=== PATIENT | female | born 1975 | race African-American/Black ===

== ENCOUNTER 2016-11-14 13:10 | Emergency (ER) | payer OTHER ==
[~2016-11-14] VITALS: Ht 165.1 cm; Wt 68.0 kg
[~2016-11-14 13:10] MED LIST: ACETAMINOPHEN-1 EAC1 ORAL; CYCLOBENZAPRINE10 MG ORAL; KEFLEX500 MG ORAL; METHIMAZOLE10 MG PO; NAPROXEN500 M2 ORAL; PHENERGAN25 M1 ORAL; PROPRANOLOL HCL20 MG PO
[2016-11-14 13:24] VITALS: BP 150/74
[2016-11-14] MEDS ORDERED: Bacitracin Oint UD TOPIC ONE (13:45)
[2016-11-14] MEDS ORDERED: Lidocaine 1% 10mg/ml/Epi 0.005mg/ml 30ml vial INJ ONE (13:45)
[2016-11-14] MEDS ORDERED: CEPHALEXIN500 MG ORAL (14:26)
[2016-11-14] MEDS ORDERED: BACTRIM DS TAB1 EAC1 ORAL (14:26)
[2016-11-14] MEDS ORDERED: IBUPROFEN600 MG ORAL (14:26)
--- NOTE | 2016-11-14 14:37 | Emergency Room Report ---
History of Present Illness General Chief Complaint: Skin Rash/Abscess Present Illness HPI The patient is a 41-year-old female presenting with possible abscess of the right buttock. The patient noticed pain and swelling to the area 3 days prior. It is described as a 9/10 dull ache it is worse with sitting and touch. Pain does not radiate. The patient noticed white drainage from the area yesterday. Pt denies prior infection to this area. The pt denies other symptoms including N , V, F, chills, diarrhea, constipation, dysuria, hematuria Allergies: Coded Allergies: No Known Allergies (Verified Allergy, Mild, 04/27/10) Patient History Past Medical History: see triage record Pertinent Family History: none Reviewed Nursing Documentation: PMH: Agreed, PSxH: Agreed Nursing Documentation-PMH Hx Asthma: Yes - GRAVES DISEASE Review of Systems All Other Systems: negative except mentioned in HPI Physical Exam Vital Signs Date Time Temp Pulse Resp B/P Pulse Ox O2 Delivery O2 Flow Rate FiO2 11/14/16 13:24 98.1 20 150/74 100 Room Air 11/14/16 13:24 106 Sp02 EP Interpretation: reviewed, normal General Appearance: no apparent distress, alert, GCS 15, non-toxic Head: normocephalic, atraumatic Eyes: bilateral eye PERRL, bilateral eye normal inspection ENT: hearing grossly normal, normal pharynx, no angioedema, normal voice Musculoskeletal: back normal, gait/station normal, normal range of motion, non- tender Neurologic: alert, oriented x3, responsive, motor strength/tone normal, sensory intact, normal gait, speech normal Psychiatric: judgement/insight normal, memory normal, mood/affect normal, no suicidal/homicidal ideation Skin: well hydrated, other - There is a 3cm fluctuant and tender abscess with central opening of the R medial buttock Lymphatic: no adenopathy Procedures Incision and Drainage Incision and Drainage : Consent: Verbal Site: R buttock Blade Size: 11 I & D Procedure: betadine prep, sterile drapes applied, sterile dressing applied Wound Location: lower extremity Wound's Depth, Shape: superficial Wound Length (cm): 3 Wound Explored: contaminated Irrigated w/ Saline (ccs): 100 Anesthesia: Lidocaine w/ Epi Volume Anesthetic (ccs): 4 Splint Applied?: No Sling Applied?: No Patient Tolerated: Well Complications: None Medical Decision Making PA Attestation Dr. Aguilar is my supervising physician. Patient management was discussed with my supervising physician Diagnostic Impression: Primary Impression: Abscess ER Course The patient is a 41-year-old female presenting with possible abscess of the right buttock Differential diagnoses considered but not limited to: abscess, cellulitis, insect bite PE: vitals WNL. NAD There is a 3cm fluctuant and tender abscess with central opening of the R medial buttock. No drainage or bleeding. Betadine prep was used to clean the skin and surrounding area. One percent lidocaine without epinephrine was used to anesthetize the are of planned incision. A #11 blade was used to make an incision in the central area of fluctuance approximately 1/3 the size of the diameter of the abscess. Once the incision was made, purulent material was expressed with blood. Blunt dissection was then used to release loculations and expressed more purulent material. Once only blood appeared to be expressed from the incision, normal saline was used to irrigate the inside of the abscess. The wound was then cleaned and sterile dressing applied. Pt is ID'ed home with a prescription for motrin, bactrim, and keflex. Pt will keep the area clean and dry. ER precautions given. Last Vital Signs Date Time Temp Pulse Resp B/P Pulse Ox O2 Delivery O2 Flow Rate FiO2 11/14/16 13:24 98.1 106 20 150/74 100 Room Air Status: improved Disposition: HOME, SELF-CARE Condition: Improved Scripts Trimethoprim/Sulfamethoxazole 160/800* (BACTRIM DS TABLET*) 1 Each Tablet 1 TAB ORAL TWICE A DAY, #14 TAB Prov: TERZIAN,AUGUSTINA P.A. 11/14/16 Cephalexin* (KEFLEX*) 500 Mg Capsule 500 MG ORAL EVERY 6 HOURS, #28 CAP Prov: TERZIAN,AUGUSTINA P.A. 11/14/16 Ibuprofen* (MOTRIN*) 600 Mg Tablet 600 MG ORAL Q8H Y for For Pain, #30 TAB 0 Refills Prov: TERZIAN,AUGUSTINA P.A. 11/14/16 Patient Instructions: Abscess Additional Instructions: I discussed my findings with the patient. All questions and concerns have been answered. Treatment and medication compliance have been addressed. I advised the patient that they need to follow up with PMD in 3-5 days. Return to ED if symptoms worsen, new symptoms arise, or if needed for any reason. Patient verbalized understanding of discharge instructions. AUGUSTINA MILAN Nov 14, 2016 14:37
[2016-11-14 14:47] VITALS: BP 171/84
== END 2016-11-14 14:50 | disposition home or self-care (01) ==
LOC: EMR 13:44
DX: L02.31 Cutaneous abscess of buttock (principal); E05.00 Thyrotoxicosis with diffuse goiter without thyrotoxic crisis or storm
CPT/HCPCS: 10060

== ENCOUNTER 2017-10-19 00:11 | Emergency (ER) | payer MEDICAID, OTHER ==
[~2017-10-19] VITALS: Ht 162.6 cm; Wt 66.7 kg
[~2017-10-19 00:11] MED LIST changes: +BACTRIM DS TAB1 EAC1 ORAL; +CEPHALEXIN500 MG ORAL; +IBUPROFEN600 MG ORAL
[2017-10-19 02:00] VITALS: BP 144/80
[2017-10-19] MEDS ORDERED: IBUPROFEN600 MG ORAL (02:14)
[2017-10-19 02:15] VITALS: BP 144/80
[2017-10-19] MEDS ORDERED: Ketorolac 30mg Inj IM ONE (02:15)
[2017-10-19] MEDS ORDERED: Bicillin LA 2,400,000 units IM ONE (02:15)
--- NOTE | 2017-10-23 07:25 | Emergency Room Report ---
History of Present Illness General Chief Complaint: Toothache Source: Patient, Medical Record Present Illness HPI Patient is a 42-year-old female presented after increased toothache. Patient gradual onset of symptoms. The patient for having increased pain to the tooth is also discoloration. She reports having a dentist appointment in a few days. Allergies: Coded Allergies: No Known Allergies (Verified Allergy, Mild, 04/27/10) Patient History Past Medical History: see triage record Last Menstrual Period: "early september" Now: No Reviewed Nursing Documentation: PMH: Agreed, PSxH: Agreed Nursing Documentation-PMH Hx Asthma: Yes - GRAVES DISEASE Review of Systems All Other Systems: negative except mentioned in HPI Physical Exam Vital Signs Date Time Temp Pulse Resp B/P (MAP) Pulse Ox O2 Delivery O2 Flow Rate FiO2 10/19/17 00:48 97.3 90 18 158/84 99 Room Air 97.3 General Appearance: well appearing, no apparent distress, alert, GCS 15 Head: normocephalic, atraumatic ENT: hearing grossly normal, normal voice, other - tooth discoloration without evident swelling Neck: full range of motion, supple Respiratory: no respiratory distress, no accessory muscle use, speaking full sentences Cardiovascular #1: normal peripheral pulses Gastrointestinal: normal inspection Musculoskeletal: normal inspection, back normal, digits/nails normal, no calf tenderness Neurologic: normal inspection, alert, oriented x3, responsive, marketing administrator III-XII nml as tested, normal gait Psychiatric: mood/affect normal Skin: no rash Medical Decision Making Diagnostic Impression: Primary Impression: Dental infection ER Course Patient presented for dental pain. Differential diagnosis included but was not limited to trigeminal neuralgia, dental abscess, dry socket, osteomyelitis, nerve injury. The patient was noted to have a benign exam. I ordered antibiotic medications for the patient however she eloped prior to receiving the medications. Last Vital Signs Date Time Temp Pulse Resp B/P (MAP) Pulse Ox O2 Delivery O2 Flow Rate FiO2 10/19/17 02:15 97.3 80 18 144/80 99 Room Air 207.1 Status: unchanged Disposition: ELOPED Condition: Stable Scripts Ibuprofen* (MOTRIN*) 600 Mg Tablet 600 MG ORAL Q8H Y for For Pain, #30 TAB 0 Refills Prov: Orlin Garza 10/19/17 Patient Instructions: Dental Pain Orlin Garza Oct 23, 2017 07:24
== END 2017-10-19 02:30 | disposition left against medical advice (07) ==
LOC: EMR 01:40
DX: K04.7 Periapical abscess without sinus (principal); E05.00 Thyrotoxicosis with diffuse goiter without thyrotoxic crisis or storm
CPT/HCPCS: 96372; 99284

== ENCOUNTER 2017-12-01 12:11 | Inpatient (IN) | payer MEDICAID, OTHER ==
[2017-12-01] VITALS (10 sets, daily range): BP systolic 120–152; BP diastolic 76–102
[~2017-12-01] VITALS: Ht 162.6 cm; Wt 64.0 kg
[2017-12-01] MEDS ORDERED: METHIMAZOLE10 MG PO (12:37)
[2017-12-01] MEDS ORDERED: METOPROLOL SUC100 MG ORAL (12:37)
[2017-12-01] MEDS ORDERED: Labetalol 5mg/ml 20ml vial IV ONE ×2 (12:45→13:15)
[2017-12-01 12:57] LABS: APPEARANCE,URINE CLEAR; BILIRUBIN, URINE NEGATIVE (NEGATIVE); COLOR,URINE PALE YELLOW; GLUCOSE, URINE (UA) NEGATIVE (NEGATIVE); KETONES,URINE NEGATIVE (NEGATIVE); LEUKOCYTE ESTERASE ,URINE NEGATIVE (NEGATIVE); NITRITE,URINE NEGATIVE (NEGATIVE); PH,URINE 6 (4.5-8.0); PROTEIN,URINE NEGATIVE (NEGATIVE); UROBILINOGEN,URINE NORMAL MG/DL (0.0-1.0)
[2017-12-01 12:57] LABS: BASOPHILS % (AUTO) 1.1 % (0.0-2.0); EOSINOPHILS % (AUTO) 1.8 % (0.0-3.0); HEMATOCRIT 36.8 % (37.0-47.0); HEMOGLOBIN 10.7 G/DL (12.0-16.0); LYMPHOCYTES % (AUTO) 37.1 % (20.0-45.0); MEAN CORPUSCULAR VOLUME 62 FL (80-99); NEUTROPHILS % (AUTO) 45.9 % (45.0-75.0); PLATELET COUNT 355 K/UL (150-450); RED BLOOD COUNT 5.93 M/UL (4.20-5.40); RED CELL DISTRIBUTION WIDTH 16.4 % (11.6-14.8); WHITE BLOOD COUNT 5.4 K/UL (4.8-10.8)
--- NOTE | 2017-12-01 13:00 | Emergency Room Report ---
History of Present Illness General Chief Complaint: Chest Pain Source: Patient Present Illness HPI Patient presents with complaints of palpitation and chest pain Patient reports previous history of Graves' disease is on beta selina 2 days ago started having palpitation sensation Has progressed to more heaviness and pain as well Denies any pleurisy denies any vomiting or diarrhea Denies any back or flank pain denies any dysuria frequency Patient denies any recent travel Allergies: Coded Allergies: No Known Allergies (Verified Allergy, Mild, 04/27/10) Patient History Past Medical History: see triage record Pertinent Family History: none Last Menstrual Period: 10/05/17 Now: No : 3 Para: 1 Reviewed Nursing Documentation: PMH: Agreed; PSxH: Agreed Nursing Documentation-PMH Past Medical History: No History, Except For Hx Hypertension: Yes Hx Asthma: Yes - GRAVES DISEASE Review of Systems All Other Systems: negative except mentioned in HPI Physical Exam Vital Signs Date Time Temp Pulse Resp B/P (MAP) Pulse Ox O2 Delivery O2 Flow Rate FiO2 12/01/17 12:27 97.6 152 18 152/89 92 Room Air 97.5 Sp02 EP Interpretation: reviewed, abnormal - 92% is a low percentage interpreted, on 2 L the patient is saturating at 97% which is normal General Appearance: moderate distress - Patient appears agitated and tearful Head: normocephalic, atraumatic Eyes: bilateral eye PERRL, bilateral eye EOMI ENT: hearing grossly normal, normal pharynx, TMs + canals normal, uvula midline Neck: full range of motion, supple, no meningismus, no bony tend Respiratory: lungs clear, normal breath sounds, no rhonchi, no respiratory distress, no retraction, no accessory muscle use Cardiovascular #1: no edema, no gallop, no JVD, no murmur, tachycardia Gastrointestinal: normal bowel sounds, non tender, soft, no mass, no organomegaly, non-distended, no guarding, no hernia, no pulsatile mass, no rebound Genitourinary: no CVA tenderness Musculoskeletal: normal inspection Neurologic: oriented x3, responsive, house mother III-XII nml as tested, motor strength/ tone normal, sensory intact Psychiatric: mood/affect normal Skin: normal color, no rash, warm/dry, palpation normal Lymphatic: normal inspection, no adenopathy Procedures Critical Care Time Critical Care Time 50 minutes for multiple re-evaluations critical presentation with concern for cardiac end organ failure not including any positional time Medical Decision Making Diagnostic Impression: Primary Impression: Atrial fibrillation with RVR Additional Impression: Graves disease ER Course Patient is a fairly complex patient with multiple differential to consideration including but not limited to cardiac cardiopulmonary and vascular emergencies Other autoimmune a slight pathology also entertained Initiated patient's heart rate was fairly tachycardic and difficult to ascertain irregularity however after labetalol dosing and the decreased heart rate it does appear the patient has atrial fibrillation Patient has not had that diagnosis before appears to have a new onset atrial fibrillation with rapid ventricular rate Patient is provided Cardizem at this time further hydration Lovenox was also provided My suspicion for pulmonary embolisms low at this time nevertheless the patient will require admission for further care Labs Test 12/02/17 08:05 White Blood Count 5.6 K/UL (4.8-10.8) Red Blood Count 5.09 M/UL (4.20-5.40) Hemoglobin 9.7 G/DL (12.0-16.0) Hematocrit 31.5 % (37.0-47.0) Mean Corpuscular Volume 62 FL (80-99) Mean Corpuscular Hemoglobin 19.0 PG (27.0-31.0) Mean Corpuscular Hemoglobin Concent 30.7 G/DL (32.0-36.0) Red Cell Distribution Width 16.1 % (11.6-14.8) Platelet Count 314 K/UL (150-450) Mean Platelet Volume 9.5 FL (6.5-10.1) Neutrophils (%) (Auto) % (45.0-75.0) Lymphocytes (%) (Auto) % (20.0-45.0) Monocytes (%) (Auto) % (1.0-10.0) Eosinophils (%) (Auto) % (0.0-3.0) Basophils (%) (Auto) % (0.0-2.0) Differential Total Cells Counted 100 Neutrophils % (Manual) 30 % (45-75) Lymphocytes % (Manual) 56 % (20-45) Monocytes % (Manual) 12 % (1-10) Eosinophils % (Manual) 2 % (0-3) Basophils % (Manual) 0 % (0-2) Band Neutrophils 0 % (0-8) Platelet Estimate Adequate Platelet Morphology Normal Hypochromasia 1+ Anisocytosis 1+ Microcytosis 2+ Ovalocytes Occasional Activated Partial Thromboplast Time 66 SEC (23-33) Sodium Level 138 MMOL/L (136-145) Potassium Level 3.7 MMOL/L (3.5-5.1) Chloride Level 107 MMOL/L (98-107) Carbon Dioxide Level 26 MMOL/L (21-32) Anion Gap 5 mmol/L (5-15) Blood Urea Nitrogen 6 mg/dL (7-18) Creatinine 0.7 MG/DL (0.55-1.30) Estimat Glomerular Filtration Rate > 60 mL/min (>60) Glucose Level 149 MG/DL (74-106) Calcium Level 8.6 MG/DL (8.5-10.1) Total Bilirubin 0.6 MG/DL (0.2-1.0) Aspartate Amino Transf (AST/SGOT) 23 U/L (15-37) Alanine Aminotransferase (ALT/SGPT) 30 U/L (12-78) Alkaline Phosphatase 115 U/L (46-116) Troponin I 0.000 ng/mL (0.000-0.056) Pro-B-Type Natriuretic Peptide 413 pg/mL (0-125) Total Protein 6.8 G/DL (6.4-8.2) Albumin 3.2 G/DL (3.4-5.0) Globulin 3.6 g/dL Albumin/Globulin Ratio 0.9 (1.0-2.7) EKG Diagnostic Results Rate: tachycardiac Rhythm: other - A. fib ST Segments: other - Nonspecific ST and T-wave changes Rhythm Strip Diag. Results EP Interpretation: yes Rate: 122 Rhythm: no PVC's, no ectopy, other - Irregularly irregular Chest X-Ray Diagnostic Results Chest X-Ray Diagnostic Results : Chest X-Ray Ordered: Yes # of Views/Limited/Complete: 1 View Indication: Chest Pain EP Interpretation: Yes Interpretation: no consolidation, no effusion, no pneumothorax Impression: No acute disease Last Vital Signs Date Time Temp Pulse Resp B/P (MAP) Pulse Ox O2 Delivery O2 Flow Rate FiO2 12/01/17 12:50 143 152/89 12/01/17 12:44 19 99 Room Air 12/01/17 12:27 97.6 97.5 Status: improved Disposition: ADMITTED INPATIENT Condition: Critical Scripts Propranolol Hcl* (INDERAL*) 20 Mg Tablet 20 MG ORAL THREE TIMES A DAY, #90 TAB 0 Refills Prov: Chano Cabral MD 12/02/17 Methimazole (Methimazole) 5 Mg Tablet 10 MG ORAL THREE TIMES A DAY for 30 Days, TAB Prov: Chano Cabral MD 12/02/17 Referrals: [facility],REFERRING (PCP) Gordon Aguilar DO Dec 01, 2017 13:00
[2017-12-01 13:10] LABS: ANION GAP 12 mmol/L (5-15); BLOOD UREA NITROGEN 9 mg/dL (7-18); CARBON DIOXIDE 23 MMOL/L (21-32); CHLORIDE 106 MMOL/L (98-107); CREATININE 0.6 MG/DL (0.55-1.30); POTASSIUM 3.8 MMOL/L (3.5-5.1); SODIUM 141 MMOL/L (136-145)
[2017-12-01 13:34] LABS: ALANINE AMINOTRANSFERASE 28 U/L (12-78); ALBUMIN 3.6 G/DL (3.4-5.0); ALBUMIN/GLOBULIN RATIO 0.9 (1.0-2.7); ALKALINE PHOSPHATASE 139 U/L (46-116); ASPARTATE AMINO TRANSFERASE 21 U/L (15-37); BILIRUBIN,TOTAL 0.6 MG/DL (0.2-1.0); CKMB < 0.5 NG/ML (0.0-3.6); CREATINE KINASE 32 U/L (26-308)
[2017-12-01] MEDS ORDERED: dilTIAZem HCl 25mg/5ml Inj IVP ONE (13:45)
[2017-12-01] MEDS ORDERED: Enoxaparin 60mg Inj SUBQ ONE (13:45)
[2017-12-01] MEDS ORDERED: Propranolol 1mg/ml Inj IVP ONE (15:45)
--- NOTE | 2017-12-01 17:02 | Diagnostic Imaging Report ---
Indication: Chest pain Technique: One view of the chest Comparison: 07/27/2012 Findings: Lungs and pleural spaces are clear. Heart size is normal. No significant change Impression: No acute process
[2017-12-01] MEDS ORDERED: Metoprolol 5mg/5ml Inj IVPB SCH (18:45)
[2017-12-01] MEDS ORDERED: Heparin 25,000u/D5W 500ml 500 ML IV SCH (19:00)
[2017-12-01] MEDS ORDERED: Heparin 5000 units/ml inj IV SCH (19:30)
[2017-12-01] MEDS ORDERED: Metoprolol Tartrate 10 MG in D5W 55 ML IVPB SCH (21:00)
--- NOTE | 2017-12-01 23:30 | Consultation ---
DATE OF CONSULTATION: 12/01/2017 CARDIOLOGY CONSULTATION CONSULTING PHYSICIAN: Trevon Ambrose M.D. REQUESTING PHYSICIAN: Chano Cabral M.D. REASON FOR CONSULTATION: Rapid atrial fibrillation. HISTORY OF PRESENT ILLNESS: This is a 42-year-old female. She has a history of Graves disease. She has been on beta-selina therapy as well as methimazole two days ago. She noted palpitations they have progressed. Her heart rate has been rapid and she has had heaviness and tightness in her chest. She has not had any other constitutional symptoms and has been compliant with medications. PAST MEDICAL HISTORY: Graves disease, hypertension, paroxysmal atrial fibrillation. MEDICATIONS: Prior to admission, reviewed and reconciled. ALLERGIES: None. FAMILY HISTORY: Noncontributory. SOCIAL HISTORY: Denies smoking, alcohol, or substance abuse. REVIEW OF SYSTEMS: A 10-point review of systems performed. All systems negative other than noted above. PHYSICAL EXAMINATION: VITAL SIGNS: Blood pressure 152/89, pulse 152, respiratory rate 18, and afebrile. Monitor atrial fibrillation with rapid ventricular response. Oxygen saturation on room air 92%. HEENT: Normocephalic and atraumatic. There is slight exophthalmos. Oropharynx clear. NECK: Supple. No jugular venous distention. No tenderness over the chest wall. LUNGS: Clear. CARDIAC: Irregularly irregular. Rapid rate. Normal S1 and S2 with no murmur. ABDOMEN: Soft and nontender EXTREMITIES: With no edema. Capillary refill is adequate. NECK: There is no gross thyromegaly or bruits. LABORATORY AND DIAGNOSTIC DATA: His EKG revealed atrial fibrillation with rapid ventricular response, nonspecific ST-T wave changes. Chest x-ray with no acute process. LABORATORY DATA: White count 5.4, hemoglobin 10.7, MCV 62. Sodium 141, potassium 3.8, BUN 9, creatinine 0.6. Troponin negative. TSH less than 0.007. T4 free is 3.1. IMPRESSION: Anginal syndrome precipitated by rapid heart rate. PLAN: 1. Full anticoagulation. 2. Cardiac monitoring. 3. IV beta blockade and once rate controlled resume oral therapy and titrate. 4. Continue methimazole. 5. Await endocrine assessment. 6. Maintain therapeutic potassium levels. 7. Check natriuretic peptide assay. 8. Serial troponin levels. Trevon Ambrose M.D. DR: Luis JOB#: [id number] CC:
[2017-12-02] VITALS: BP 143/85
[2017-12-02] MEDS: Metoprolol Tartrate 10 MG in D5W 55 ML IVPB SCH ×2 (00:33→04:57)
[2017-12-02] MEDS ORDERED: Metoprolol 5mg/5ml Inj ONE (04:40)
[2017-12-02 07:58] VITALS: BP 104/63
[2017-12-02 08:18] LABS: HEMATOCRIT 31.5 % (37.0-47.0); HEMOGLOBIN 9.7 G/DL (12.0-16.0); MEAN CORPUSCULAR VOLUME 62 FL (80-99); PLATELET COUNT 314 K/UL (150-450); RED BLOOD COUNT 5.09 M/UL (4.20-5.40); RED CELL DISTRIBUTION WIDTH 16.1 % (11.6-14.8); WHITE BLOOD COUNT 5.6 K/UL (4.8-10.8)
--- NOTE | 2017-12-02 08:24 | History & Physical ---
History and Physical History & Physicial HISTORY OF PRESENT ILLNESS: This is a 42-year-old female. She has a history of Graves disease. She has been on beta-selina therapy as well as methimazole however she reports non-compliance She noted palpitations they have progressed. Her heart rate has been rapid and she has had heaviness and tightness in her chest. She has not had any other constitutional symptoms and has been compliant with medications. PAST MEDICAL HISTORY: Graves disease, hypertension, paroxysmal atrial fibrillation. MEDICATIONS: Tapazole and metoprolol ALLERGIES: None. FAMILY HISTORY: Noncontributory. SOCIAL HISTORY: Denies smoking, alcohol, or substance abuse. REVIEW OF SYSTEMS: A 10-point review of systems performed. All systems negative other than noted above. PHYSICAL EXAMINATION: VITAL SIGNS: Blood pressure 152/89, pulse 152 earlier; now 87, respiratory rate 18, and afebrile. Monitor atrial fibrillation with rapid ventricular response. Oxygen saturation on room air 92%. HEENT: Normocephalic and atraumatic. There is slight exophthalmos. Oropharynx clear. NECK: Supple. No jugular venous distention. No tenderness over the chest wall. LUNGS: Clear. CARDIAC: Irregularly irregular. Rapid rate. Normal S1 and S2 with no murmur. ABDOMEN: Soft and nontender EXTREMITIES: With no edema. Capillary refill is adequate. NECK: There is no gross thyromegaly or bruits. LABORATORY AND DIAGNOSTIC DATA: His EKG revealed atrial fibrillation with rapid ventricular response, nonspecific ST-T wave changes. Chest x-ray with no acute process. LABORATORY DATA: White count 5.4, hemoglobin 10.7, MCV 62. Sodium 141, potassium 3.8, BUN 9, creatinine 0.6. Troponin negative. TSH less than 0.007. T4 free is 3.1. IMPRESSION: Atrial fibrillation. Graves disease. PLAN: 1. Seen by endocrinology 2. Switch to Inderal 4. Continue methimazole. 5.DC home on PO Inderal and methimazole MD Misha Chisholm Omar Syed MD Dec 02, 2017 08:24
[2017-12-02] MEDS ORDERED: TAPAZOLE5 MG ORAL (08:26)
[2017-12-02] MEDS ORDERED: PROPRANOLOL HCL20 MG ORAL (08:26)
[2017-12-02 08:52] LABS: ALANINE AMINOTRANSFERASE 30 U/L (12-78); ALBUMIN 3.2 G/DL (3.4-5.0); ALBUMIN/GLOBULIN RATIO 0.9 (1.0-2.7); ALKALINE PHOSPHATASE 115 U/L (46-116); ANION GAP 5 mmol/L (5-15); ASPARTATE AMINO TRANSFERASE 23 U/L (15-37); BILIRUBIN,TOTAL 0.6 MG/DL (0.2-1.0); BLOOD UREA NITROGEN 6 mg/dL (7-18); CALCIUM 8.6 MG/DL (8.5-10.1); CARBON DIOXIDE 26 MMOL/L (21-32); CHLORIDE 107 MMOL/L (98-107); CREATININE 0.7 MG/DL (0.55-1.30); POTASSIUM 3.7 MMOL/L (3.5-5.1); SODIUM 138 MMOL/L (136-145)
[2017-12-02] MEDS ORDERED: Metoprolol Tartrate 10 MG in D5W 55 ML IVPB SCH (09:00)
[2017-12-02] MEDS ORDERED: Metoprolol Succinate XL 100mg tab ORAL SCH (09:00)
--- NOTE | 2017-12-03 01:15 | Progress Note ---
DATE: 12/02/2017 SUBJECTIVE: The patient has been given IV and oral metoprolol. Heart rate now is controlled. She remains in atrial fibrillation. She remains on anticoagulation. PHYSICAL EXAMINATION: LUNGS: Good breath sounds. Irregularly irregular rhythm. Normal S1 and S2. ABDOMEN: Soft. EXTREMITIES: No edema. Troponin levels are negative. LABORATORY AND DIAGNOSTIC DATA: Potassium 3.7. Pro natriuretic peptide is 400. Albumin 3.2. IMPRESSION: 1. Graves disease. 2. Thyrotoxicosis. 3. Paroxysmal atrial fibrillation, now with controlled ventricular response. 4. Acute diastolic congestive heart failure precipitated by rapid atrial fibrillation and catecholamine state. 5. Mild protein-calorie malnutrition. PLAN: 1. Outpatient followup. 2. Continue beta-sleina. 3. Methimazole dosing adjusted per supervisor brew house. 4. Cardioembolic prophylaxis with rivaroxaban or warfarin. Trevon Ambrose M.D. DR: Luis JOB#: [id number] CC: MATTHEW
--- NOTE | 2017-12-03 07:15 | Consultation ---
DATE OF CONSULTATION: 12/02/2017 ENDOCRINOLOGY CONSULTATION CONSULTING PHYSICIAN: Ian Garrett M.D. REFERRING PHYSICIAN: Dr Cabral REASON FOR CONSULTATION: Hyperthyroidism. HISTORY OF PRESENT ILLNESS: The patient is a 42-year-old female, with past medical history of hyperthyroidism for the past five years on methimazole as an outpatient. She is on 10 mg a day, which she has not been compliant. The patient presented to the hospital with palpitations and rapid heart rate. I will start her on methimazole 10 mg t.i.d. as well as metoprolol. Endocrinology was consulted in order to assist in the management of hyperthyroidism. PAST MEDICAL HISTORY: 1. Graves disease. 2. Hypertension. 3. Paroxysmal atrial fibrillation. MEDICATIONS: Methimazole and metoprolol. ALLERGIES TO MEDICATION: None. FAMILY HISTORY: Negative for thyroid disease. SOCIAL HISTORY: Denies any smoking, alcohol, or drug use. REVIEW OF SYSTEMS: A 12-point review of systems was performed. Pertinent positives and negatives are as mentioned in the history of present illness. PHYSICAL EXAMINATION: VITAL SIGNS: Blood pressure is 152/89, pulse 152 down to 87, and respiratory rate 18. HEENT: Pupils are equal and reactive to light and accommodation. Sclerae are anicteric. NECK: No thyromegaly. HEART: Tachy, but regular. LUNGS: Clear. ABDOMEN: Positive bowel sounds. EXTREMITIES: Lower extremity positive for fine tremors. LABORATORY DATA: WBC of 5.6, hemoglobin 9.7, hematocrit 31.5, and platelets of 314. Sodium 138, potassium 3.7, chloride 107, bicarbonate 26, BUN 6, creatinine 0.7, and glucose 149. Troponin negative. TSH undetectable. Free T4 is elevated at 3. DIAGNOSES: 1. Thyrotoxicosis. 2. Graves disease. 3. Noncompliance with methimazole. 4. Tachycardia. PLAN: 1. Continue methimazole 10 mg t.i.d. 2. Discontinue metoprolol and start Inderal 20 mg t.i.d. 3. From an director clinical operations standpoint, the patient is stable for discharge. Continue with the current dosage of beta selina and methimazole. Repeat thyroid tests, thyroid function as an outpatient in a month. Thank you, Dr. Cabral, for the courtesy of this consultation. Ian Garrett M.D. DR: ANGIE JOB#: [id number] CC: MATTHEW
--- NOTE | 2017-12-03 08:56 | Discharge Summary ---
Discharge Summary Discharge Summary Discharge Summary DATE OF ADMISSION: 12/01/2017 DATE OF DISCHARGE: 12/02/2017 REASON FOR ADMISSION: [42 years old female with history of hypertension paroxysmal atrial fibrillation agreed disease resented with a complaint of palpitation and chest pain. Palpitation started about 2 days ago. Which progressed to more howeverand chest pain. She denied any nausea vomiting diarrhea. She denied fever or chills. She denied parotic chest pain she denied flank pain or dysuria. Laboratory workup revealed heart rate of 152. EKG showed atrial fibrillation with rapid ventricular response troponin was negative. TSH was very low less than 0.007. Free T4 3 0.1. Patient admitted to telemetry floor with diagnosis of atrial fibrillation with rapid ventricular response grave disease. CONSULTANTS: gas dispenser on neurologist pulmonary ID specialist GI specialist learning support resource room teacher deep well contractor/oncologist surgery psychiatrist Technical Services Manager [email or web address] [facility] COURSE: Patient admitted to telemetry floor. Cardiology and endocrinology consults were requested. Patient was given IV beta selina and full anticoagulation as per gas dispenser. Troponin 2 negative. Heart rate stabilized. Patient spontaneously converted to sinus rhythm. Blood pressure was stable with current regimen. Technical Services Manager seen and evaluated the patient and diagnosed patient with thyrotoxicosis due to noncompliance with the medication/methimazole. He changed metoprolol the patient was before, to Inderal -to be continued at home as well as continue methimazole. Technical Services Manager cleared patient for discharge and stressed importance of compliance with the medication regimen. Patient to repeat thyroid function test in one month. Patient was stable for discharged home. Due to rapid and unexpected improvement in patient's condition , the patient was discharged in one day. FINAL DIAGNOSES: Atrial fibrillation with rapid ventricular response Thyrotoxicosis Grave's disease Noncompliance with medication DISCHARGE MEDICATIONS: See Medication Reconciliation list. DISCHARGE INSTRUCTIONS: Patient was discharged home. Patient to follow-up with her primary care provider. Repeat thyroid function test in one month. Patient was counseled on compliance with medication regimen. I have been assigned to dictate discharge summary for this account. I was not involved in the patient's management. Isatu Jauregui NP ([place]) Dec 03, 2017 08:56
--- NOTE | 2017-12-04 21:26 | Cardiology Report ---
APPROVED REPORT EKG Measurement Heart [id number] Normal sinus rhythm Right atrial enlargement Borderline ECG
--- NOTE | 2017-12-04 21:30 | Cardiology Report ---
APPROVED REPORT EKG Measurement Heart [id number] Atrial flutter with variable AV block Abnormal ECG
--- NOTE | 2017-12-04 21:30 | Cardiology Report ---
APPROVED REPORT EKG Measurement Heart [id number] Atrial fibrillation with rapid ventricular response Abnormal ECG
== END 2017-12-02 09:00 | disposition home or self-care (01) | DRG 201 ==
LOC: EDBEDREQ 12:40 → EMR 12:56 → EDBEDREQ 13:36 → 2E 14:10 → EDBEDREQ 14:58
DX: I48.0 Paroxysmal atrial fibrillation (principal); I10 Essential (primary) hypertension; E05.00 Thyrotoxicosis with diffuse goiter without thyrotoxic crisis or storm; Z91.14 Patient's other noncompliance with medication regimen
CPT/HCPCS: 36415; 71045; 80053; 80307; 81003; 81025; 82550; 82553; 83690; 83880; 84439; 84443; 84484; 85007; 85025; 85730; 93005; 99291; J2405; J8499

== ENCOUNTER 2019-02-16 18:13 | Inpatient (IN) | payer BC, MEDICAID ==
[~2019-02-16] VITALS: Ht 162.6 cm; Wt 64.0 kg
[~2019-02-16 18:13] MED LIST changes: +METOPROLOL SUC100 MG ORAL; +PROPRANOLOL HCL20 MG ORAL; +TAPAZOLE5 MG ORAL
[2019-02-16] MEDS ORDERED: METOPROLOL SUCC50 MG ORAL (18:21)
[2019-02-16] MEDS ORDERED: METHIMAZOLE10 MG PO (18:21)
--- NOTE | 2019-02-16 18:28 | NUR ---
ED Nurse Note: Patient walked into ED c/o chest pain on the mid sternal area and SOB for 1 week. patient reports he has been seen by PCP yesterday. patient reports hx of graves disease and hypertension, and takes methimazole 10mg and metoprolol for due to cp and SOB for 1 week. seen by PCP yesterday. on methimazole 10mg and metoprolol 50mg. [employer] monitor on the patient, placed patient in gown.
[2019-02-16] MEDS ORDERED: Propranolol 1mg/ml Inj IVP ONE ×3 (18:30→19:30)
--- NOTE | 2019-02-16 18:31 | Emergency Room Report ---
History of Present Illness General Chief Complaint: Chest Pain Source: Patient, Medical Record Present Illness HPI Patient is a 43-year-old female who presented after increased chest discomfort for approximately 1 week. Patient reports having prior history of hyperthyroidism and previously had been on methimazole as well as propranolol. Patient had discontinued medication approximately 1 week ago. She reports having increased palpitations since last night. She had some increased blurring of her vision. She denies any vomiting. She had been having some increased chest discomfort which she describes as a rapid heartbeat. She states she took both her methimazole and propranolol this morning.Denies any change in the symptoms since taking the medications. Allergies: Coded Allergies: No Known Allergies (Verified Allergy, Mild, 04/27/10) Patient History Past Medical History: see triage record, other - hyperthyroidism Last Menstrual Period: 10/09 Reviewed Nursing Documentation: PMH: Agreed; PSxH: Agreed Nursing Documentation-PMH Past Medical History: No History, Except For Hx Cardiac Problems: No Hx Hypertension: Yes Hx Asthma: Yes - GRAVES DISEASE Hx Cancer: No Hx Gastrointestinal Problems: No Hx Neurological Problems: No Review of Systems All Other Systems: negative except mentioned in HPI Physical Exam Vital Signs Date Time Temp Pulse Resp B/P (MAP) Pulse Ox O2 Delivery O2 Flow Rate FiO2 02/16/19 18:18 97.7 160 18 124/91 (102) 100 Room Air Sp02 EP Interpretation: reviewed, normal General Appearance: normal inspection, well appearing, no apparent distress, alert, GCS 15 Head: atraumatic ENT: normal ENT inspection, hearing grossly normal, normal voice Neck: normal inspection, full range of motion, supple, no bony tend Respiratory: normal inspection, lungs clear, normal breath sounds, no respiratory distress, no retraction, no wheezing Cardiovascular #1: no edema, tachycardia Gastrointestinal: normal inspection, normal bowel sounds, non tender, soft, no guarding, no hernia Genitourinary: no CVA tenderness Musculoskeletal: normal inspection, back normal, normal range of motion Neurologic: normal inspection, alert, oriented x3, responsive, manganese heater III-XII nml as tested, motor strength/tone normal, speech normal Psychiatric: normal inspection, judgement/insight normal, mood/affect normal Medical Decision Making Diagnostic Impression: Primary Impression: Hyperthyroidism Additional Impressions: Fluid overload Anemia ER Course Patient presented for palpitations and chest discomfort. Differential diagnosis include was not limited to thyroid storm, beta-selina withdrawal, ACS , arrhythmia among others. Because of complexity of patient's case laboratory testing and imaging studies were ordered. Patient was noted to have markedly elevated heart rate and was initially started on IV propranolol. EKG interpreted by me showed an atrial flutter with variable block with a heart rate in the 160s.Patient was noted to have some improvement in her heart rate after IV propranolol. Patient started on IV Lasix. She was noted to be somewhat anemic. MCV was noted to be low consistent with iron deficiency anemia. Dr. Chano Cabral was contacted for inpatient management due to prior admission. Labs Test 02/16/19 18:26 White Blood Count 7.8 K/UL (4.8-10.8) Red Blood Count 4.84 M/UL (4.20-5.40) Hemoglobin 8.1 G/DL (12.0-16.0) Hematocrit 29.1 % (37.0-47.0) Mean Corpuscular Volume 60 FL (80-99) Mean Corpuscular Hemoglobin 16.8 PG (27.0-31.0) Mean Corpuscular Hemoglobin Concent 27.9 G/DL (32.0-36.0) Red Cell Distribution Width 15.1 % (11.6-14.8) Platelet Count 344 K/UL (150-450) Mean Platelet Volume 6.5 FL (6.5-10.1) Neutrophils (%) (Auto) 49.2 % (45.0-75.0) Lymphocytes (%) (Auto) 33.9 % (20.0-45.0) Monocytes (%) (Auto) 14.0 % (1.0-10.0) Eosinophils (%) (Auto) 1.0 % (0.0-3.0) Basophils (%) (Auto) 2.0 % (0.0-2.0) Sodium Level 140 MMOL/L (136-145) Potassium Level 3.9 MMOL/L (3.5-5.1) Chloride Level 106 MMOL/L (98-107) Carbon Dioxide Level 23 MMOL/L (21-32) Anion Gap 11 mmol/L (5-15) Blood Urea Nitrogen 15 mg/dL (7-18) Creatinine 0.8 MG/DL (0.55-1.30) Estimat Glomerular Filtration Rate > 60 mL/min (>60) Glucose Level 124 MG/DL (74-106) Calcium Level 8.5 MG/DL (8.5-10.1) Total Bilirubin 0.9 MG/DL (0.2-1.0) Aspartate Amino Transf (AST/SGOT) 31 U/L (15-37) Alanine Aminotransferase (ALT/SGPT) 34 U/L (12-78) Alkaline Phosphatase 120 U/L (46-116) Total Creatine Kinase 32 U/L (26-308) Creatine Kinase MB < 0.5 NG/ML (0.0-3.6) Creatine Kinase MB Relative Index 1.5 Troponin I 0.014 ng/mL (0.000-0.056) Pro-B-Type Natriuretic Peptide 1251 pg/mL (0-125) Total Protein 6.4 G/DL (6.4-8.2) Albumin 3.5 G/DL (3.4-5.0) Globulin 2.9 g/dL Albumin/Globulin Ratio 1.2 (1.0-2.7) Thyroid Stimulating Hormone (TSH) < 0.010 uiU/mL (0.358-3.740) Free Thyroxine 4.49 NG/DL (0.76-1.46) EKG Diagnostic Results Rate: tachycardiac Rhythm: other - atrial flutter variable block Last Vital Signs Date Time Temp Pulse Resp B/P (MAP) Pulse Ox O2 Delivery O2 Flow Rate FiO2 02/16/19 18:18 97.7 160 18 124/91 (102) 100 Room Air Status: improved Disposition: ADMITTED INPATIENT Condition: Serious Referrals: NON PHYSICIAN (PCP) Orlin Garza MD Feb 16, 2019 18:31
[2019-02-16 18:35] VITALS: BP 130/91
[2019-02-16 18:38] LABS: HEMATOCRIT 29.1 % (37.0-47.0); HEMOGLOBIN 8.1 G/DL (12.0-16.0); LYMPHOCYTES % (AUTO) 33.9 % (20.0-45.0); MEAN CORPUSCULAR VOLUME 60 FL (80-99); NEUTROPHILS % (AUTO) 49.2 % (45.0-75.0); PLATELET COUNT 344 K/UL (150-450); RED BLOOD COUNT 4.84 M/UL (4.20-5.40); RED CELL DISTRIBUTION WIDTH 15.1 % (11.6-14.8); WHITE BLOOD COUNT 7.8 K/UL (4.8-10.8)
[2019-02-16 18:49] LABS: ANION GAP 11 mmol/L (5-15); BLOOD UREA NITROGEN 15 mg/dL (7-18); CALCIUM 8.5 MG/DL (8.5-10.1); CARBON DIOXIDE 23 MMOL/L (21-32); CHLORIDE 106 MMOL/L (98-107); CREATININE 0.8 MG/DL (0.55-1.30); POTASSIUM 3.9 MMOL/L (3.5-5.1); SODIUM 140 MMOL/L (136-145)
[2019-02-16 19:02] LABS: ALANINE AMINOTRANSFERASE 34 U/L (12-78); ALBUMIN 3.5 G/DL (3.4-5.0); ALBUMIN/GLOBULIN RATIO 1.2 (1.0-2.7); ALKALINE PHOSPHATASE 120 U/L (46-116); ASPARTATE AMINO TRANSFERASE 31 U/L (15-37); BILIRUBIN,TOTAL 0.9 MG/DL (0.2-1.0); CKMB < 0.5 NG/ML (0.0-3.6); CREATINE KINASE 32 U/L (26-308)
--- NOTE | 2019-02-16 19:10 | NUR ---
Gogo reis in EDM - 02/16/19 at 1912 by JOSE DANIEL ED Nurse Note: Received report from Jhoana/JAMES. Pt is A/O X4, will continue to monitor.
--- NOTE | 2019-02-16 19:11 | NUR ---
HAND-OFF: Report given to Jeannie RAMIREZ . benjamin is resting in bed
--- NOTE | 2019-02-16 19:12 | NUR ---
ED Nurse Note: Received report from Jhoana/JAMES. Pt is A/O X4, will continue to monitor.
[2019-02-16 19:15] VITALS: BP 119/74
--- NOTE | 2019-02-16 19:47 | Diagnostic Imaging Report ---
EXAM: XR Chest, 1 View CLINICAL HISTORY: SOB TECHNIQUE: Frontal view of the chest. COMPARISON: 12/01/18 FINDINGS: Lungs: Slight increased lung markings in the right lung base with minimal fluid noted in the fissure Pleural space: Unremarkable. No pneumothorax. Heart: Unremarkable. No cardiomegaly. Mediastinum: Unremarkable. Bones/joints: Unremarkable. IMPRESSION: Prominent interstitial markings in the right lung base and minimal fluid noted in the fissure of the right. This is new from prior study
--- NOTE | 2019-02-16 19:48 | NUR ---
ED Nurse Note: The third dose of Inderal with Lasix given as ordered.
[2019-02-16 20:35] VITALS: BP 126/87
--- NOTE | 2019-02-16 20:55 | NUR ---
ED Nurse Note: Called Tele tried to gived report, was told he need for 10 mint to call back, due to RN with PT. .
--- NOTE | 2019-02-16 21:18 | NUR ---
ED Nurse Note: Pt's hoyos and home Meds sent with pt's friend/ Bk, Tele: [phone].
--- NOTE | 2019-02-16 21:20 | NUR ---
TRANSFER TO FLOOR: Patient transferred to [facility]/216-1 as ordered. Report given to Rafi/JAMES. Belongings sent with Pt and rechecked with RN.
[2019-02-16 21:30] VITALS: BP 135/100
--- NOTE | 2019-02-16 21:30 | NUR ---
NURSE NOTES: Received report from Bruno Price RN. regarding patient's transfer to TELE floor from ED. Placed on continuous cardiac monitoring per protocol and for elevated HR with A-flutter/A-fib. EKG taken and recorded in ED. Head to toe assessment done with no skin issues observed. No complaints of acute pain or discomfort noted at this time. Belongings checked and noted at bedside; medications reconciled and taken home by patient's friend. Safety precaution in place; siderails X2 up, call light within reach, bed in lowest position, brakes and alarm on at all times. Needs and wants anticipated and attended. Will continue plan of care and monitor for any changes noted.
--- NOTE | 2019-02-16 22:26 | NUR ---
NURSE NOTES: Jose Alberto Cabral MD. aware of abnormal lab Hgb (8.1) and elevated HR at 160's (A-flutter) on EKG. Will continue to monitor. Addendum: 02/17/19 at 0255 by TEX BARRIOS RN aware of A-fib/A-flutter. NNO at this time
[2019-02-16] MEDS: Metoprolol Succinate XL 50mg tab ORAL SCH (23:49)
[2019-02-16] MEDS: Zolpidem 5mg tab ORAL PRN (23:49)
[2019-02-17] VITALS: BP 122/71
--- NOTE | 2019-02-17 03:00 | NUR ---
NURSE NOTES: Patient in bed asleep with no S/S of distress noted at this time. Will continue to monitor. Elevated HR 150-160's with noted A-fib/A-flutter. MD aware with NNO. Will continue to monitor.
[2019-02-17 04:00] VITALS: BP 129/77
--- NOTE | 2019-02-17 06:51 | NUR ---
NURSE NOTES: Spoke with Jose Alberto Cabral MD. regarding patients condition (Tachycardic with A-fib/A-flutter). Will see the patient later this morning per . Will continue to monitor. Addendum: 02/17/19 at 0655 by TEX BARRIOS RN HR 150-155's. MD akins
--- NOTE | 2019-02-17 07:29 | NUR ---
HAND-OFF: Report given to Bruno Key RN. Patient in bed in stable condition. Endorsed plan of care.
--- NOTE | 2019-02-17 07:30 | NUR ---
NURSE NOTES: Report received from Rafi RAMIREZ. Patient in bed awake and AOX4. No c/o pain. Denied SOB or chest pain. IV site in LAC 20G SL patent and asymptomatic. Bed in lowest position and locked. Rhythm with Afib or A flutter with HR of 140-150. Made Dr. Cabral aware. No new order received. Will continue to plan of care.
[2019-02-17 08:00] VITALS: BP 118/76
[2019-02-17] MEDS: Metoprolol Succinate XL 50mg tab ORAL SCH ×2 (08:59→17:22)
--- NOTE | 2019-02-17 09:34 | Consultation ---
History of Present Illness General Date patient seen: Feb 17, 2019 Time patient seen: 09:34 Chief Complaint: Chest Pain Present Illness Allergies: Coded Allergies: No Known Allergies (Verified Allergy, Mild, 04/27/10) Medication History Scheduled Methimazole (Methimazole), 10 MG ORAL THREE TIMES A DAY Methimazole (Methimazole), 10 MG PO DAILY, (Reported) Metoprolol Succinate* (Metoprolol Succinate*), 50 MG ORAL DAILY, (Reported) Propranolol Hcl* (Inderal*), 20 MG ORAL THREE TIMES A DAY Patient History Healthcare decision maker Resuscitation status Full Code Advanced Directive on File No Physical Exam Last 24 Hour Vital Signs Date Time Temp Pulse Resp B/P (MAP) Pulse Ox O2 Delivery O2 Flow Rate FiO2 02/17/19 08:59 140 118/76 02/17/19 08:00 98.5 140 20 118/76 (90) 100 02/17/19 04:00 98.3 146 20 129/77 (94) 100 02/17/19 04:00 149 02/17/19 00:00 142 02/17/19 00:00 98.8 155 20 122/71 (88) 99 02/16/19 23:49 155 122/75 02/16/19 22:14 Nasal Cannula 2.0 02/16/19 22:00 168 02/16/19 21:30 99.2 163 20 135/100 (112) 100 02/16/19 21:20 97.8 140 24 123/81 99 Nasal Cannula 2.0 141 140 02/16/19 20:35 97.8 141 24 126/87 99 Room Air 141 02/16/19 19:48 154 119/74 02/16/19 19:15 97.7 160 24 119/74 99 Room Air 160 02/16/19 18:51 168 119/68 02/16/19 18:44 161 24 Room Air 02/16/19 18:35 97.7 161 24 130/91 100 Room Air 02/16/19 18:31 169 124/91 02/16/19 18:18 97.7 160 18 124/91 (102) 100 Room Air Intake and Output 02/16/19 02/17/19 19:00 07:00 Intake Total 390 ml Output Total 350 ml Balance 40 ml Intake Oral 390 ml Output Urine Total 350 ml # Voids 1 # Bowel Movements 1 Laboratory Tests Test 02/16/19 18:26 White Blood Count 7.8 K/UL (4.8-10.8) Red Blood Count 4.84 M/UL (4.20-5.40) Hemoglobin 8.1 G/DL (12.0-16.0) L Hematocrit 29.1 % (37.0-47.0) L Mean Corpuscular Volume 60 FL (80-99) L Mean Corpuscular Hemoglobin 16.8 PG (27.0-31.0) L Mean Corpuscular Hemoglobin Concent 27.9 G/DL (32.0-36.0) L Red Cell Distribution Width 15.1 % (11.6-14.8) H Platelet Count 344 K/UL (150-450) Mean Platelet Volume 6.5 FL (6.5-10.1) Neutrophils (%) (Auto) 49.2 % (45.0-75.0) Lymphocytes (%) (Auto) 33.9 % (20.0-45.0) Monocytes (%) (Auto) 14.0 % (1.0-10.0) H Eosinophils (%) (Auto) 1.0 % (0.0-3.0) Basophils (%) (Auto) 2.0 % (0.0-2.0) Sodium Level 140 MMOL/L (136-145) Potassium Level 3.9 MMOL/L (3.5-5.1) Chloride Level 106 MMOL/L (98-107) Carbon Dioxide Level 23 MMOL/L (21-32) Anion Gap 11 mmol/L (5-15) Blood Urea Nitrogen 15 mg/dL (7-18) Creatinine 0.8 MG/DL (0.55-1.30) Estimat Glomerular Filtration Rate > 60 mL/min (>60) Glucose Level 124 MG/DL (74-106) H Calcium Level 8.5 MG/DL (8.5-10.1) Total Bilirubin 0.9 MG/DL (0.2-1.0) Aspartate Amino Transf (AST/SGOT) 31 U/L (15-37) Alanine Aminotransferase (ALT/SGPT) 34 U/L (12-78) Alkaline Phosphatase 120 U/L (46-116) H Total Creatine Kinase 32 U/L (26-308) Creatine Kinase MB < 0.5 NG/ML (0.0-3.6) Creatine Kinase MB Relative Index 1.5 Troponin I 0.014 ng/mL (0.000-0.056) Pro-B-Type Natriuretic Peptide 1251 pg/mL (0-125) H Total Protein 6.4 G/DL (6.4-8.2) Albumin 3.5 G/DL (3.4-5.0) Globulin 2.9 g/dL Albumin/Globulin Ratio 1.2 (1.0-2.7) Thyroid Stimulating Hormone (TSH) < 0.010 uiU/mL (0.358-3.740) Free Thyroxine 4.49 NG/DL (0.76-1.46) H Height (Feet): 5 Height (Inches): 4.00 Weight (Pounds): 120 Medications Current Medications Medications (Trade) Dose Ordered Sig/Jae Route PRN Reason Start Time Stop Time Status Last Admin Dose Admin Acetaminophen (Tylenol) 650 mg Q6H PRN ORAL Mild Pain/Temp > 100.5 02/16/19 22:15 03/18/19 22:14 Methimazole (Tapazole) 10 mg THREE TIMES A DAY ORAL 02/17/19 09:00 03/19/19 08:59 02/17/19 09:04 Metoprolol Succinate (Toprol XL) 50 mg BID ORAL 02/16/19 23:30 03/18/19 23:29 02/17/19 08:59 Zolpidem Tartrate (Ambien) 5 mg HSPRN PRN ORAL Insomnia 02/16/19 23:00 02/23/19 22:59 02/16/19 23:49 Trevon Villafuerte MD Feb 17, 2019 09:34
[2019-02-17] MEDS ORDERED: Metoprolol Tartrate 10 MG in D5W 55 ML IVPB ONE (10:30)
[2019-02-17 11:38] VITALS: BP 127/75
--- NOTE | 2019-02-17 12:46 | NUR ---
NURSE NOTES: Dr. Wright paged form tachycardia with 145-165 of heart rate with A-fib and A.flutters. awaiting for reply
--- NOTE | 2019-02-17 12:47 | NUR ---
NURSE NOTES: Dr. Villafuerte replied and no new order noted. Will continue to plan of care.
--- NOTE | 2019-02-17 13:12 | NUR ---
NURSE NOTES: Dr. Wright paged for 2D echo results and made Doctor aware. No new order noted.
[2019-02-17 16:00] VITALS: BP 121/81
--- NOTE | 2019-02-17 18:15 | History and Physical Report ---
DATE OF ADMISSION: 02/16/2019 HISTORY OF PRESENT ILLNESS: This is a 43-year-old female, who came to the hospital with an irregular heart beat. The patient reports a previous history of hyperthyroidism for which I have seen in the past. She has recently stopped taking her medications as she states that she changed insurances and ran out of her medications. She was found to be in AF flutter and also hyperthyroid. She came to the hospital for admission and care. PAST MEDICAL HISTORY: Notable for: 1. Hypertension. 2. Paroxysmal atrial fibrillation. She was admitted to this hospital in November 2017 at which time she was discharged on appropriate medications. She now represents with history as above. 3. She has a previous history of Graves disease, hypertension, paroxysmal atrial fibrillation. HOME MEDICATIONS: Tapazole and metoprolol. ALLERGIES: None. SOCIAL HISTORY: Denies tobacco or alcohol usage. PAST SURGICAL HISTORY: None. REVIEW OF SYSTEMS: The patient denies any headaches, hematemesis, melena, or hematochezia. PHYSICAL EXAMINATION: GENERAL: Revealed a young female. HEENT: Unremarkable. LUNGS: Clear breath sounds bilaterally. ABDOMEN: Soft. NEUROLOGIC: Nonfocal. There is slight exophthalmos, VITAL SIGNS: Heart rate is 126 irregular. Blood pressure 150/80, respirations are 20. She is afebrile. LABORATORY DATA: Lab testing shows hemoglobin 8.1, otherwise normal CBC and BMP. Alkaline phosphatase 120. ProBNP 1251. Troponin 0.14. TSH less than 0.01. Free T4 4.49. IMAGING STUDIES: She underwent a chest x-ray, which showed prominent interstitial markings in the right lung base. IMPRESSION: 1. Anemia. 2. Hyperthyroidism. 3. Atrial flutter. 4. Medication noncompliance. DISCUSSION: Admitted to the hospital. We will consult Cardiology and Endocrinology. Consider GI evaluation for anemia. We will follow carefully. Discussed with the patient. We will resume home medications which include Tapazole and metoprolol. The patient has been started also Xarelto per Cardiology. We will follow carefully. Chano Cabral M.D. DR: Jeanne JOB#: [id number] CC:
--- NOTE | 2019-02-17 19:07 | NUR ---
HAND-OFF: Report given to Rakesh RAMIREZ.Pt remains stable.
--- NOTE | 2019-02-17 19:32 | NUR ---
NURSE NOTES: Pt received from Min, RN alert and oriented x4 with no acute s/s of distress at the bedside. IV site asymptomatic and patent on L ac 20g. Bed in lowest position, call light and belongings within reach.
[2019-02-17 20:00] VITALS: BP 114/83
[2019-02-17] MEDS: Zolpidem 5mg tab ORAL PRN (22:08)
--- NOTE | 2019-02-17 22:41 | Consultation ---
History of Present Illness General Date patient seen: Feb 17, 2019 Time patient seen: 22:40 Chief Complaint: Chest Pain Present Illness HPI 43 year old female with thyrid disease and AFIB presents with RVR, medication non compliance. NO chest pain or SOB Allergies: Coded Allergies: No Known Allergies (Verified Allergy, Mild, 04/27/10) Medication History Scheduled Methimazole (Methimazole), 10 MG ORAL THREE TIMES A DAY Methimazole (Methimazole), 10 MG PO DAILY, (Reported) Metoprolol Succinate* (Metoprolol Succinate*), 50 MG ORAL DAILY, (Reported) Propranolol Hcl* (Inderal*), 20 MG ORAL THREE TIMES A DAY Patient History Healthcare decision maker Resuscitation status Full Code Advanced Directive on File No Review of Systems Constitutional: Reports: no symptoms Eye: Reports: no symptoms ENT: Reports: no symptoms Respiratory: Reports: no symptoms Cardiovascular: Reports: palpitations Gastrointestinal: Reports: no symptoms Genitourinary: Reports: no symptoms Musculoskeletal: Reports: no symptoms Skin: Reports: no symptoms Psychiatric: Reports: no symptoms Neurological: Reports: no symptoms Endocrine: Reports: no symptoms Hematologic/Lymphatic: Reports: no symptoms Physical Exam General Appearance: no apparent distress, alert Lines, tubes and drains: peripheral HEENT: normocephalic, atraumatic, anicteric, mucous membranes moist, PERRL Neck: normal alignment, supple, normal inspection Respiratory/Chest: chest wall non-tender, lungs clear, normal breath sounds Cardiovascular/Chest: normal peripheral pulses, regularly irregular, tachycardia, arrhythmia Abdomen: normal bowel sounds, non tender, soft, no organomegaly, no mass Extremities: normal range of motion, non-tender, normal inspection, no calf tenderness Skin Exam: normal pigmentation, warm/dry Neurologic: 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8 155 20 122/71 (88) 99 02/16/19 23:49 155 122/75 Intake and Output 02/16/19 02/17/19 18:59 06:59 Intake Total 390 ml Output Total 350 ml Balance 40 ml Intake Oral 390 ml Output Urine Total 350 ml # Voids 1 # Bowel Movements 1 Height (Feet): 5 Height (Inches): 4.00 Weight (Pounds): 120 Medications Current Medications Medications (Trade) Dose Ordered Sig/Jae Route PRN Reason Start Time Stop Time Status Last Admin Dose Admin Acetaminophen (Tylenol) 650 mg Q6H PRN ORAL Mild Pain/Temp > 100.5 02/16/19 22:15 03/18/19 22:14 02/17/19 22:18 Methimazole (Tapazole) 10 mg THREE TIMES A DAY ORAL 02/17/19 09:00 03/19/19 08:59 02/17/19 17:22 Metoprolol Succinate (Toprol XL) 100 mg BID ORAL 02/17/19 18:00 03/18/19 23:29 02/17/19 17:22 Rivaroxaban (Xarelto) 20 mg DAILY ORAL 02/18/19 09:00 03/20/19 08:59 Zolpidem Tartrate (Ambien) 5 mg HSPRN PRN ORAL Insomnia 02/16/19 23:00 02/23/19 22:59 02/17/19 22:08 Assessment/Plan Status: stable Assessment/Plan: Assessment 1. Anemia. 2. Hyperthyroidism. 3. Atrial flutter. 4. Medication noncompliance. Plan Echocardiogram Rate control with metoprolol PO and IV Anticoagulation with xarelto Check thyroid function studies Iron panel Trevon Villafuerte MD Feb 17, 2019 22:41
[2019-02-18] VITALS (7 sets, daily range): BP systolic 109–138; BP diastolic 72–98
--- NOTE | 2019-02-18 07:14 | NUR ---
HAND-OFF: Report given to JAMES Guevara. No acute s/s of distress noted.
--- NOTE | 2019-02-18 07:15 | NUR ---
NURSE NOTES: Report received from Rakesh RN. AOX4 and able to make needs known. Pt is sitting in bed and having breakfast. No c/o pain. On O2 2LPM with saturating with 98%. IV in LAC 20G SL intact and asymptomatic. Bed in lowest position and locked. No acute distress noted. Rhythm still A-fib and A.flutter with RVR with asymptomatic and Dr. Cabral and Dr. Villafuerte aware. Call light within easy reach. Will continue to plan of care.
--- NOTE | 2019-02-18 08:27 | Cardiology Progress Note ---
Assessment/Plan Status: stable Assessment/Plan Assessment/Plan Status: stable Assessment/Plan: Assessment 1. Anemia. 2. Hyperthyroidism. 3. Atrial flutter. 4. Medication noncompliance. Plan Echocardiogram with systolic dysfunction, will need to re-check when in sinus rhythm, likely tachycardia induced cardiomyopathy Rate control with metoprolol PO and IV, 100 mg BID Add Cardizem 30 mg TID today, d/c when sinus achieved Anticoagulation with xarelto Check thyroid function studies Iron panel If can not achieve rate control will need ALBINA cardioversion Subjective Cardiovascular: Reports: no symptoms Respiratory: Reports: no symptoms Gastrointestinal/Abdominal: Reports: no symptoms Genitourinary: Reports: no symptoms Subjective Remains in AFIB overnight rates up to 160 ,no pain no discomfort. Free T4 elevated Echo with systolic dysfunction LVEF 20-25 % and severe TR and moderate pulmonary hypertension Objective Last 24 Hour Vital Signs Date Time Temp Pulse Resp B/P (MAP) Pulse Ox O2 Delivery O2 Flow Rate FiO2 02/18/19 04:00 145 02/18/19 04:00 98.2 120 18 117/74 (88) 99 02/18/19 00:00 97.7 140 18 125/83 (97) 100 02/17/19 21:00 Room Air 02/17/19 20:00 98.5 130 18 114/83 (93) 100 02/17/19 20:00 159 02/17/19 17:22 149 121/81 02/17/19 16:00 98.3 146 18 121/81 (94) 99 02/17/19 16:00 149 02/17/19 12:00 141 02/17/19 11:38 98.5 137 18 127/75 (92) 100 02/17/19 11:03 140 118/76 02/17/19 09:00 Room Air 02/17/19 08:59 140 118/76 General Appearance: no apparent distress, alert EENT: PERRL/EOMI, normal ENT inspection, TMs normal Neck: non-tender, normal alignment, supple, normal inspection, no JVD Rhythm: Afib Cardiovascular: regularly irregular, tachycardia Respiratory/Chest: chest wall non-tender, lungs clear, normal breath sounds, no respiratory distress Abdomen: normal bowel sounds, non tender, soft, no organomegaly, no mass Extremities: normal range of motion, non-tender Neurologic: straightening machine 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
[2019-02-18] MEDS: Metoprolol Succinate XL 50mg tab ORAL SCH ×2 (08:49→17:53)
[2019-02-18] MEDS: Xarelto 10mg tab ORAL SCH (08:50)
--- NOTE | 2019-02-18 08:50 | Pulmonology Progress Note ---
Assessment/Plan Assessment/Plan IMPRESSION: 1. Anemia. 2. Hyperthyroidism. 3. Atrial flutter. 4. Medication noncompliance. 5. Abdominal pain DISCUSSION: Admitted to the hospital. Seen by Cardiology and Endocrinology. Consider GI evaluation for anemia. I will follow carefully. Discussed with the patient. The patient has been started also Xarelto per Cardiology. Cardizem added. Subjective Interval Events: None new; complaining of nausea Constitutional: Reports: no symptoms HEENT: Repors: no symptoms Respiratory: Reports: no symptoms Cardiovascular: Reports: no symptoms Gastrointestinal/Abdominal: Reports: no symptoms Genitourinary: Reports: no symptoms Allergies: Coded Allergies: No Known Allergies (Verified Allergy, Mild, 04/27/10) Objective Last 24 Hour Vital Signs Date Time Temp Pulse Resp B/P (MAP) Pulse Ox O2 Delivery O2 Flow Rate FiO2 02/18/19 08:00 97.9 150 21 132/98 (109) 97 02/18/19 04:00 145 02/18/19 04:00 98.2 120 18 117/74 (88) 99 02/18/19 00:00 97.7 140 18 125/83 (97) 100 02/17/19 21:00 Room Air 02/17/19 20:00 98.5 130 18 114/83 (93) 100 02/17/19 20:00 159 02/17/19 17:22 149 121/81 02/17/19 16:00 98.3 146 18 121/81 (94) 99 02/17/19 16:00 149 02/17/19 12:00 141 02/17/19 11:38 98.5 137 18 127/75 (92) 100 02/17/19 11:03 140 118/76 02/17/19 09:00 Room Air 02/17/19 08:59 140 118/76 Intake and Output 02/17/19 02/18/19 19:00 07:00 Intake Total 480 ml Balance 480 ml Intake Oral 480 ml # Voids 3 2 # Bowel Movements 1 1 General Appearance: no acute distress HEENT: normocephalic Respiratory/Chest: chest wall non-tender, lungs clear Cardiovascular: normal peripheral pulses, regularly irregular Abdomen: normal bowel sounds Current Medications Medications (Trade) Dose Ordered Sig/Jae Route PRN Reason Start Time Stop Time Status Last Admin Dose Admin Acetaminophen (Tylenol) 650 mg Q6H PRN ORAL Mild Pain/Temp > 100.5 02/16/19 22:15 03/18/19 22:14 02/17/19 22:18 Diltiazem HCl (Cardizem) 30 mg EVERY 8 HOURS ORAL 02/18/19 14:00 03/20/19 13:59 Famotidine (Pepcid) 20 mg BID ORAL 02/18/19 09:00 03/20/19 08:59 Methimazole (Tapazole) 10 mg THREE TIMES A DAY ORAL 02/17/19 09:00 03/19/19 08:59 02/17/19 17:22 Metoprolol Succinate (Toprol XL) 100 mg BID ORAL 02/17/19 18:00 03/18/19 23:29 02/17/19 17:22 Metoprolol Tartrate 10 mg/ Dextrose 65 ml @ 130 mls/hr ONCE ONCE IVPB 02/18/19 09:00 02/18/19 09:29 Ondansetron HCl (Zofran) 4 mg Q6H PRN IVP Nausea & Vomiting 02/18/19 08:45 03/20/19 08:44 Rivaroxaban (Xarelto) 20 mg DAILY ORAL 02/18/19 09:00 03/20/19 08:59 Zolpidem Tartrate (Ambien) 5 mg HSPRN PRN ORAL Insomnia 02/16/19 23:00 02/23/19 22:59 02/17/19 22:08 Chano Cabral MD Feb 18, 2019 08:50
[2019-02-18] MEDS ORDERED: Metoprolol Tartrate 10 MG in D5W 55 ML IVPB ONE (09:00)
--- NOTE | 2019-02-18 10:33 | NUR ---
NURSE NOTES: Dr. Wright paged for c/o nausea, stomach upset and lower back pain. Pt just threw up x1. Per Dr. Villafuerte, contact for getting a GI consult. Dr. Cabral paged and awaiting for reply
[2019-02-18] MEDS: dilTIAZem HCl 30mg tab ORAL SCH ×2 (13:33→21:27)
--- NOTE | 2019-02-18 15:10 | NUR ---
NURSE NOTES: Dr. Cabral paged to notify the episodes of vomiting and nausea and to get the name of the GI and Endocrinology but he did not reply. Paged MD again and awaiting for reply.
--- NOTE | 2019-02-18 16:33 | NUR ---
CASE MANAGEMENT: INITIAL REVIEW 43 YO F PRESENTED TO ED FROM HOME CC: CP PMHx: HTN. GRAVES DX. SI:HYPERTHYROIDISM. TACHYCARDIA. T 97.7 HR 160 RR 18 B/P 124/91 SATS 100% ON RA GLU 124 ALP 120 BNP 1251 IS: PROPRANOLOL IV X3 LASIX IV X1 PATIENT ADMITTED TO TELE 02/16/2019 @ 1955 DCP: PATIENT TO BE DISCHARGED ONCE MEDICALLY ONCE MEDICALLY CLEARED. PLAN OF CARE: CARDIO, ENDOCRINOLOGY, GI CONSULT Addendum: 02/18/19 at 1644 by Keyla Regalado 02/17/2019 SI:HYPERTHYROIDISM. TACHYCARDIA. T 98.5 HR 130 RR 18 B/P 114/83 SATS 100% ON RA NO LABS TODAY IS: CARDIZEM PO Q8H METOPROLOL PO BID PEPCID PO BID XARELTO PO QD TAPAZOLE PO TID TELE STATUS DCP: PATIENT TO BE DISCHARGED ONCE MEDICALLY ONCE MEDICALLY CLEARED. PLAN OF CARE: Echocardiogram Rate control with metoprolol PO and IV Anticoagulation with xarelto 02/18/2019 SI:HYPERTHYROIDISM. TACHYCARDIA. T 98.4 HR 155 RR 19 B/P 109/72 SATS 98% ON RA NO LABS TODAY IS: CARDIZEM PO Q8H METOPROLOL PO BID PEPCID PO BID XARELTO PO QD TAPAZOLE PO TID TELE STATUS DCP: PATIENT TO BE DISCHARGED ONCE MEDICALLY ONCE MEDICALLY CLEARED. PLAN OF CARE: PER CARDIO "Echocardiogram with systolic dysfunction, will need to re-check when in sinus rhythm, likely tachycardia induced cardiomyopathy Rate control with metoprolol PO and IV, 100 mg BID Add Cardizem 30 mg TID today, d/c when sinus achieved Anticoagulation with xarelto Check thyroid function studies Iron panel If can not achieve rate control will need ALBINA cardioversion" Addendum: 02/18/19 at 1650 by Keyla Regalado CM INTERQUAL MET
--- NOTE | 2019-02-18 16:40 | NUR ---
02/17/2019 SI:HYPERTHYROIDISM. TACHYCARDIA. T 98.5 HR 130 RR 18 B/P 114/83 SATS 100% ON RA NO LABS TODAY IS: CARDIZEM PO Q8H METOPROLOL PO BID PEPCID PO BID XARELTO PO QD TAPAZOLE PO TID TELE STATUS DCP: PATIENT TO BE DISCHARGED ONCE MEDICALLY ONCE MEDICALLY CLEARED. PLAN OF CARE: Echocardiogram Rate control with metoprolol PO and IV Anticoagulation with xarelto 02/18/2019 SI:HYPERTHYROIDISM. TACHYCARDIA. T 98.4 HR 155 RR 19 B/P 109/72 SATS 98% ON RA NO LABS TODAY IS: CARDIZEM PO Q8H METOPROLOL PO BID PEPCID PO BID XARELTO PO QD TAPAZOLE PO TID TELE STATUS DCP: PATIENT TO BE DISCHARGED ONCE MEDICALLY ONCE MEDICALLY CLEARED. PLAN OF CARE: PER CARDIO "Echocardiogram with systolic dysfunction, will need to re-check when in sinus rhythm, likely tachycardia induced cardiomyopathy Rate control with metoprolol PO and IV, 100 mg BID Add Cardizem 30 mg TID today, d/c when sinus achieved Anticoagulation with xarelto Check thyroid function studies Iron panel If can not achieve rate control will need ALBINA cardioversion"
--- NOTE | 2019-02-18 16:59 | NUR ---
NURSE NOTES: Spoke to [place], medical assistance of Dr. Cabral and left a message again regarding the episode of vomiting and watery diarrhea x1
--- NOTE | 2019-02-18 18:15 | Consultation ---
DATE OF CONSULTATION: 02/18/2019 CONSULTING PHYSICIAN: Ian Garrett M.D. REQUESTING PHYSICIAN: Dr. Chano Cabral. REASON FOR CONSULTATION: Hyperthyroidism. HISTORY OF PRESENT ILLNESS: The patient is a 43-year-old female with past medical history of Graves disease, presented to the hospital with rapid heart beats. The patient has been off of the methimazole 10 mg after a couple of weeks. TSH is suppressed and free T4 is elevated. She was admitted to the telemetry for observation and treatment, evaluated by cosmetic chemist, Dr. Villafuerte. She has been on metoprolol 100 mg b.i.d. Also, the methimazole dose has been increased to 10 mg 3 times a day. PAST MEDICAL HISTORY: 1. Hypertension. 2. Paroxysmal atrial fibrillation. 3. Graves disease. HOME MEDICATION: Methimazole and metoprolol. ALLERGIES TO MEDICATIONS: None. SOCIAL HISTORY: No smoking, alcohol, or drug use. PAST SURGICAL HISTORY: None. REVIEW OF SYSTEMS: A 14-point review of system was performed. The pertinent positives and negatives are mentioned in history of present illness. FAMILY HISTORY: Noncontributory. PHYSICAL EXAMINATION: GENERAL: She is awake and alert. VITAL SIGNS: Blood pressure is 130/80, pulse of 110, temperature of 98 degrees, and respiratory rate 18. HEENT: Pupils are equal and reactive to light. Sclerae anicteric. NECK: Thyromegaly with bruit. HEART: Tachy. LUNGS: Clear. ABDOMEN: Positive bowel sounds. EXTREMITIES: Positive for tremor. No edema. LABORATORY VALUES: WBC 7.8, hemoglobin 8.1, hematocrit 29.1, and platelets of 344,000. Sodium 140, potassium 3.9, chloride 106, bicarbonate 22, BUN 15, creatinine 0.8, glucose 124, alk phos 120, BNP 1263. TSH undetectable DIAGNOSES: 1. Graves thyrotoxicosis. 2. Atrial fibrillation. 3. Coronary artery disease. 4. Atrial flutter. PLAN: 1. Continue methimazole 10 milligram 3 times a day. 2. Continue metoprolol high-dose by cosmetic chemist. 3. In case Metoprolol failed to control the rate, we can change to Inderal 40 mg 3 times a day. Thyroid function tests to be repeated in 3 to 4 weeks. I will follow the patient during hospital stay. Thank you, Dr. Cabral, for the courtesy of this consultation. Ian Garrett M.D. DR: DONY JOB#: [id number] CC: MATTHEW
--- NOTE | 2019-02-18 19:41 | NUR ---
HAND-OFF: Report given to Rakesh RAMIREZ. Pt remains stable.
--- NOTE | 2019-02-18 19:45 | NUR ---
NURSE NOTES: Pt received from Min, RN alert and oriented x4 with no acute s/s of distress noted. IV site asymptomatic and patent. Bed in lowest position, call light and belongings within reach.
--- NOTE | 2019-02-18 22:05 | General Progress Note ---
Assessment/Plan Status: stable Assessment/Plan: Assessment - Chronic microcytic anemia, possible hemoglobinopathy - transient N/V, and diarrhea, suspect gastroenteritis - hyperthyroidism - h/o atrial fibrillation Recommendations - check Fe panel - check Hg Electrophoresis - check stool OB - outpatient colonoscopy Subjective Allergies: Coded Allergies: No Known Allergies (Verified Allergy, Mild, 04/27/10) Objective Last 24 Hour Vital Signs Date Time Temp Pulse Resp B/P (MAP) Pulse Ox O2 Delivery O2 Flow Rate FiO2 02/18/19 21:27 151 128/92 02/18/19 17:53 120 125/83 02/18/19 16:00 120 02/18/19 16:00 97.7 140 18 125/83 (97) 100 02/18/19 13:34 150 18 138/84 (102) 02/18/19 13:33 150 138/84 02/18/19 12:00 145 02/18/19 12:00 98.4 155 19 109/72 (84) 98 02/18/19 09:00 Room Air 02/18/19 08:58 150 132/98 02/18/19 08:49 150 132/98 02/18/19 08:00 97.9 150 21 132/98 (109) 97 02/18/19 08:00 154 02/18/19 04:00 145 02/18/19 04:00 98.2 120 18 117/74 (88) 99 02/18/19 00:00 97.7 140 18 125/83 (97) 100 Intake and Output 02/17/19 02/18/19 18:59 06:59 Intake Total 480 ml Balance 480 ml Intake Oral 480 ml # Voids 3 2 # Bowel Movements 1 1 Height (Feet): 5 Height (Inches): 4.00 Weight (Pounds): 120 Juan Chilel MD Feb 18, 2019 22:05
[2019-02-19] VITALS (13 sets, daily range): BP systolic 101–116; BP diastolic 62–87
[2019-02-19] MEDS: Zolpidem 5mg tab ORAL PRN (00:47)
--- NOTE | 2019-02-19 03:45 | Consultation ---
DATE OF CONSULTATION: 02/18/2019 GASTROENTEROLOGY CONSULTATION CONSULTING PHYSICIAN: Juan Chilel M.D. REFERRING PHYSICIAN: Chano Cabral M.D. CHIEF COMPLAINT: I was asked to see this patient by Dr. Chano Cabral for evaluation of anemia and abdominal issues. HISTORY OF PRESENT ILLNESS: The patient is a pleasant 43-year-old woman with a history of hyperthyroidism who has been admitted to the hospital due to irregular heart beat. The patient was found to have significant degree of microcytic anemia and therefore this consultation was generated. In reviewing the patient's records, it appears that she had a similar degree of anemia about a year ago. Workup has been done. No colonoscopy or endoscopy was done on this patient. She states that she hardly has any menstrual cycles and has not had one for 7 months because of endocrinology issues. She does eat red meat intermittently and is not a vegetarian. She denies any hematochezia. There is no family history of thalassemia or sickle cell disease. PAST MEDICAL HISTORY: History of hypertension, paroxysmal atrial fibrillation, hyperthyroidism, Crohn disease, hypertension. OUTPATIENT MEDICATIONS: Include and metoprolol. ALLERGIES: None. FAMILY HISTORY: Noncontributory. SOCIAL HISTORY: The patient is single, but has 1 child. She does not smoke or drink alcohol, although she occasionally uses vaporized marijuana. REVIEW OF SYSTEMS: Otherwise negative. PHYSICAL EXAMINATION: GENERAL: Pleasant, woman, seen in her room. HEENT: Normocephalic and atraumatic. Sclerae anicteric. Oropharynx clear. NECK: Supple. CHEST: Clear to auscultation. CARDIOVASCULAR: Revealed a regular rate. ABDOMEN: Soft, flat. Good bowel sounds. There is no organomegaly. EXTREMITIES: Revealed no edema. LABORATORY DATA: Noted. ASSESSMENT: This patient presents with significant microcytic anemia, which was seen about a year ago. Given the long duration of her laboratory findings perhaps a hemoglobinopathy such as thalassemia contributes to her microcytosis. I will check an iron panel to rule out iron deficiency. In the meantime, the patient's stool should also be checked for occult blood. She will benefit with an outpatient colonoscopy at any rate given her age and her microcytic anemia. For the patient's nausea, vomiting, and diarrhea, may be transient. I would treat that portion of the findings and complaints symptomatically for now. RECOMMENDATIONS: Per above discussion and per orders in the chart. Thank you for asking me to participate in the care of this patient. Juan Chilel M.D. DR: [place] JOB#: [id number] CC:
[2019-02-19] MEDS: dilTIAZem HCl 30mg tab ORAL SCH (06:10)
--- NOTE | 2019-02-19 06:51 | General Progress Note ---
Assessment/Plan Problem List: (1) Graves' disease with thyrotoxic crisis ICD Codes: E05.01 - Thyrotoxicosis with diffuse goiter with thyrotoxic crisis or storm SNOMED: 35139338 Status: stable Assessment/Plan: - continue Tapazole 10 mg tid - on Metoprolol and Cardizem per cardiology - repeat thyroid function in 3 weeks - consider GARZA ablation as OP in the next few months Subjective Allergies: Coded Allergies: No Known Allergies (Verified Allergy, Mild, 04/27/10) All Systems: reviewed and negative except above Subjective events noted interval notes reviewed Objective Last 24 Hour Vital Signs Date Time Temp Pulse Resp B/P (MAP) Pulse Ox O2 Delivery O2 Flow Rate FiO2 02/19/19 06:10 134 113/75 02/19/19 04:00 97.8 134 18 113/75 (88) 100 02/19/19 04:00 134 02/19/19 00:00 127 02/19/19 00:00 98.4 135 20 116/62 (80) 100 02/18/19 21:27 151 128/92 02/18/19 21:00 Room Air 02/18/19 20:00 98.1 151 20 128/92 (104) 100 02/18/19 20:00 149 02/18/19 17:53 120 125/83 02/18/19 16:00 120 02/18/19 16:00 97.7 140 18 125/83 (97) 100 02/18/19 13:34 150 18 138/84 (102) 02/18/19 13:33 150 138/84 02/18/19 12:00 145 02/18/19 12:00 98.4 155 19 109/72 (84) 98 02/18/19 09:00 Room Air 02/18/19 08:58 150 132/98 02/18/19 08:49 150 132/98 02/18/19 08:00 97.9 150 21 132/98 (109) 97 02/18/19 08:00 154 Intake and Output 02/18/19 02/19/19 19:00 07:00 Intake Total 1220 ml 350 ml Output Total 2 ml Balance 1218 ml 350 ml Intake Oral 1220 ml 350 ml Emesis 2 ml # Voids 2 3 # Bowel Movements 2 1 Laboratory Tests 02/19/19 05:20: Hemoglobin A [Pending], Hemoglobin A2 [Pending], Hemoglobin C [Pending], Hemoglobin F () [Pending], Hemoglobin S [Pending], Variant Hemoglobin [ Pending], Hemoglobin Electrophoresis Interp [Pending], Hemoglobin Interpretation [Pending], Hemoglobin Solubility [Pending], Iron Level [Pending] , Unsaturated Iron Binding [Pending], Ferritin [Pending] Height (Feet): 5 Height (Inches): 4.00 Weight (Pounds): 120 General Appearance: no apparent distress Neck: normal alignment Cardiovascular: tachycardia Respiratory/Chest: lungs clear Abdomen: normal bowel sounds Pelvis: normal external exam Objective Current Medications Medications (Trade) Dose Ordered Sig/Jae Route PRN Reason Start Time Stop Time Status Last Admin Dose Admin Acetaminophen (Tylenol) 650 mg Q6H PRN ORAL Mild Pain/Temp > 100.5 02/16/19 22:15 03/18/19 22:14 02/19/19 00:48 Diltiazem HCl (Cardizem) 30 mg EVERY 8 HOURS ORAL 02/18/19 14:00 03/20/19 13:59 02/19/19 06:10 Famotidine (Pepcid) 20 mg BID ORAL 02/18/19 09:00 03/20/19 08:59 02/18/19 17:53 Methimazole (Tapazole) 10 mg THREE TIMES A DAY ORAL 02/17/19 09:00 03/19/19 08:59 02/18/19 17:52 Metoprolol Succinate (Toprol XL) 100 mg BID ORAL 02/17/19 18:00 03/18/19 23:29 02/18/19 17:53 Ondansetron HCl (Zofran) 4 mg Q6H PRN IVP Nausea & Vomiting 02/18/19 08:45 03/20/19 08:44 02/18/19 15:21 Rivaroxaban (Xarelto) 20 mg DAILY ORAL 02/18/19 09:00 03/20/19 08:59 02/18/19 08:50 Zolpidem Tartrate (Ambien) 5 mg HSPRN PRN ORAL Insomnia 02/16/19 23:00 02/23/19 22:59 02/19/19 00:47 Ian Garrett MD Feb 19, 2019 06:51
--- NOTE | 2019-02-19 07:00 | NUR ---
NURSE NOTES: Nurse report given by JAMES Cameron. Patient is resting on bed, bed at lowest position, break engaged call light within reach. Patient doesn't show any sign of SOB, on 2L NC, denied pain. Patient's family member at bedside. IV site is flushed well, patent, no tenderness or pain.
[2019-02-19 07:12] LABS: FERRITIN 6 NG/ML (8-388)
--- NOTE | 2019-02-19 07:31 | NUR ---
HAND-OFF: Report given to JAMES Adler and JAMES Mcmullen. No acute s/s of distress noted.
[2019-02-19 07:49] LABS: % IRON SATURATION 3 % (15-50); IRON 10 ug/dL (50-175); TOTAL IRON BINDING CAPACITY 344 ug/dL (250-450)
--- NOTE | 2019-02-19 08:19 | NUR ---
NURSE NOTES: dr harvey ordered ICU transfer for cardioversion and ALBINA.
[2019-02-19] MEDS: Metoprolol Succinate XL 50mg tab ORAL SCH (08:40)
--- NOTE | 2019-02-19 08:40 | NUR ---
NURSE NOTES: Dr. Villafuerte spoke with patient about ALBINA procedure. Pt has no questions at this time, understands risks and benefits. Witnessed patient's consent and signed form.
[2019-02-19] MEDS: Xarelto 10mg tab ORAL SCH (08:41)
--- NOTE | 2019-02-19 09:41 | Cardiology Progress Note ---
Assessment/Plan Status: stable Assessment/Plan Assessment/Plan Status: stable Assessment/Plan: Assessment 1. Anemia. 2. Hyperthyroidism. 3. Atrial flutter. 4. Medication noncompliance. Plan Echocardiogram with systolic dysfunction, will need to re-check when in sinus rhythm, likely tachycardia induced cardiomyopathy Rate control with metoprolol PO and IV, 100 mg BID Increase Cardizem 60 mg TID today, IV cardizem prn, d/c when sinus achieved Anticoagulation with xarelto Methimazole per Endocrinology Iron panel If can not achieve rate control will need ALBINA/cardioversion Subjective Cardiovascular: Reports: no symptoms Respiratory: Reports: no symptoms Gastrointestinal/Abdominal: Reports: no symptoms Genitourinary: Reports: no symptoms Subjective Remains in AFIB overnight rates up to 150 ,no pain no discomfort. Free T4 elevated, on methimazole Echo with systolic dysfunction LVEF 20-25 % and severe TR and moderate pulmonary hypertension No chest pain no shortness of breath Objective Last 24 Hour Vital Signs Date Time Temp Pulse Resp B/P (MAP) Pulse Ox O2 Delivery O2 Flow Rate FiO2 02/19/19 08:40 120 103/69 02/19/19 08:00 98.0 120 18 103/69 (80) 100 02/19/19 06:10 134 113/75 02/19/19 04:00 97.8 134 18 113/75 (88) 100 02/19/19 04:00 134 02/19/19 00:00 127 02/19/19 00:00 98.4 135 20 116/62 (80) 100 02/18/19 21:27 151 128/92 02/18/19 21:00 Room Air 02/18/19 20:00 98.1 151 20 128/92 (104) 100 02/18/19 20:00 149 02/18/19 17:53 120 125/83 02/18/19 16:00 120 02/18/19 16:00 97.7 140 18 125/83 (97) 100 02/18/19 13:34 150 18 138/84 (102) 02/18/19 13:33 150 138/84 02/18/19 12:00 145 02/18/19 12:00 98.4 155 19 109/72 (84) 98 General Appearance: no apparent distress, alert EENT: PERRL/EOMI, normal ENT inspection, TMs normal, pharynx normal Neck: non-tender, normal alignment, supple, normal inspection, no JVD Rhythm: Afib Cardiovascular: tachycardia Respiratory/Chest: chest wall non-tender, lungs clear, normal breath sounds Abdomen: normal bowel sounds, non tender, soft, no organomegaly, no mass Extremities: normal range of motion, non-tender, normal inspection Neurologic: soils analyst II-XII grossly normal, no motor/sensory deficits Intake and Output 02/18/19 02/19/19 19:00 07:00 Intake Total 1220 ml 350 ml Output Total 2 ml Balance 1218 ml 350 ml Intake Oral 1220 ml 350 ml Emesis 2 ml # Voids 2 3 # Bowel Movements 2 1 Laboratory Tests Test 02/19/19 05:20 Hemoglobin A Pending Hemoglobin A2 Pending Hemoglobin C Pending Hemoglobin F () Pending Hemoglobin S Pending Variant Hemoglobin Pending Hemoglobin Electrophoresis Interp Pending Hemoglobin Interpretation Pending Hemoglobin Solubility Pending Iron Level 10 ug/dL (50-175) L Total Iron Binding Capacity 344 ug/dL (250-450) Percent Iron Saturation 3 % (15-50) L Unsaturated Iron Binding 334 ug/dL (112-346) Ferritin 6 NG/ML (8-388) L Trevon Villafuerte MD Feb 19, 2019 09:41
--- NOTE | 2019-02-19 09:42 | NUR ---
NURSE NOTES: Called ICU to ask about bed; awaiting return phone call.
--- NOTE | 2019-02-19 09:57 | Pulmonology Progress Note ---
Assessment/Plan Assessment/Plan IMPRESSION: 1. Anemia. 2. Hyperthyroidism. 3. Atrial flutter. 4. Medication noncompliance. 5. Abdominal pain DISCUSSION: I will follow carefully. Discussed with the patient. Continue Xarelto. Cardizem added. To transfer to ICU May need cardioversion GI eval noted Subjective Interval Events: Seen by GI, endocrine and cardiology; remains in AF Constitutional: Reports: no symptoms HEENT: Repors: no symptoms Respiratory: Reports: no symptoms Cardiovascular: Reports: no symptoms Gastrointestinal/Abdominal: Reports: no symptoms Genitourinary: Reports: no symptoms Neurologic: Reports: no symptoms Allergies: Coded Allergies: No Known Allergies (Verified Allergy, Mild, 04/27/10) Objective Last 24 Hour Vital Signs Date Time Temp Pulse Resp B/P (MAP) Pulse Ox O2 Delivery O2 Flow Rate FiO2 02/19/19 08:40 120 103/69 02/19/19 08:00 98.0 120 18 103/69 (80) 100 02/19/19 06:10 134 113/75 02/19/19 04:00 97.8 134 18 113/75 (88) 100 02/19/19 04:00 134 02/19/19 00:00 127 02/19/19 00:00 98.4 135 20 116/62 (80) 100 02/18/19 21:27 151 128/92 02/18/19 21:00 Room Air 02/18/19 20:00 98.1 151 20 128/92 (104) 100 02/18/19 20:00 149 02/18/19 17:53 120 125/83 02/18/19 16:00 120 02/18/19 16:00 97.7 140 18 125/83 (97) 100 02/18/19 13:34 150 18 138/84 (102) 02/18/19 13:33 150 138/84 02/18/19 12:00 145 02/18/19 12:00 98.4 155 19 109/72 (84) 98 Intake and Output 02/18/19 02/19/19 19:00 07:00 Intake Total 1220 ml 350 ml Output Total 2 ml Balance 1218 ml 350 ml Intake Oral 1220 ml 350 ml Emesis 2 ml # Voids 2 3 # Bowel Movements 2 1 General Appearance: no acute distress HEENT: normocephalic Respiratory/Chest: chest wall non-tender, lungs clear Cardiovascular: normal peripheral pulses, normal rate Abdomen: normal bowel sounds Laboratory Tests 02/19/19 05:20: Hemoglobin A [Pending], Hemoglobin A2 [Pending], Hemoglobin C [Pending], Hemoglobin F () [Pending], Hemoglobin S [Pending], Variant Hemoglobin [ Pending], Hemoglobin Electrophoresis Interp [Pending], Hemoglobin Interpretation [Pending], Hemoglobin Solubility [Pending], Iron Level 10L, Total Iron Binding Capacity 344, Percent Iron Saturation 3L, Unsaturated Iron Binding 334, Ferritin 6L Current Medications Medications (Trade) Dose Ordered Sig/Jae Route PRN Reason Start Time Stop Time Status Last Admin Dose Admin Acetaminophen (Tylenol) 650 mg Q6H PRN ORAL Mild Pain/Temp > 100.5 02/16/19 22:15 03/18/19 22:14 02/19/19 00:48 Diltiazem HCl (Cardizem) 60 mg EVERY 8 HOURS ORAL 02/19/19 14:00 03/20/19 13:59 Diltiazem HCl 125 mg/Dextrose 125 ml @ 0 mls/hr Q24H IV 02/19/19 09:45 02/20/19 09:44 Famotidine (Pepcid) 20 mg BID ORAL 02/18/19 09:00 03/20/19 08:59 02/19/19 08:40 Methimazole (Tapazole) 10 mg THREE TIMES A DAY ORAL 02/17/19 09:00 03/19/19 08:59 02/19/19 08:40 Metoprolol Succinate (Toprol XL) 100 mg BID ORAL 02/17/19 18:00 03/18/19 23:29 02/19/19 08:40 Ondansetron HCl (Zofran) 4 mg Q6H PRN IVP Nausea & Vomiting 02/18/19 08:45 03/20/19 08:44 02/18/19 15:21 Rivaroxaban (Xarelto) 20 mg DAILY ORAL 02/18/19 09:00 03/20/19 08:59 02/19/19 08:41 Zolpidem Tartrate (Ambien) 5 mg HSPRN PRN ORAL Insomnia 02/16/19 23:00 02/23/19 22:59 02/19/19 00:47 Chano Cabral MD Feb 19, 2019 09:57
--- NOTE | 2019-02-19 10:00 | NUR ---
NURSE NOTES: Surgery called about the ALBINA and said Dr. Villafuerte will not be permitted to perform ALBINA without finishing his proctoring alongside another instructional technology director. Made Dr. Villafuerte aware whom said that Dr. Rocha and Dr. Doan are not in town to [place] him. He asked us to call Dr. Hollis the chief airport guide regarding possible overriding his proctoring so he can perform the ALBINA. Dr. Mcgowan said to talk to chief of medicine, Dr. Buitrago about the issue. Dr. Buitrago is also out of town. Let Dr. Hollis know about this and he said he will call Dr. Villafuerte about how urgent the procedure is and whether overriding his proctoring is possible. He said he will call back with future orders.
--- NOTE | 2019-02-19 10:36 | NUR ---
CASE MANAGEMENT: REVIEW 02/19/2019 SI:HYPERTHYROIDISM. TACHYCARDIA. T 98.4 HR 135 RR 20 B/P 116/62 SATS 100% ON RA AM LABS PENDING IS: CARDIZEM PO Q8H METOPROLOL PO BID PEPCID PO BID XARELTO PO QD TAPAZOLE PO TID ICU STATUS DCP: PATIENT TO BE DISCHARGED ONCE MEDICALLY ONCE MEDICALLY CLEARED. PLAN OF CARE: May need cardioversion Addendum: 02/19/19 at 1039 by Keyla Regalado CARDIZEM IV PER PARAMETERS
--- NOTE | 2019-02-19 10:40 | NUR ---
NURSE NOTES: Pt transferred safely to ICU. Report given to JAMES Menjivar. Pt is in stable condition; plan of care endorsed.
--- NOTE | 2019-02-19 10:49 | NUR ---
NURSE NOTES: Report received from LINO Adler RN. Pt alert and oriented x4, able to make needs known. Pt denies pain or discomfort at this time. Pt connected to quality assurance monitor chassis, SR 110-140, afib and a flutter at times. Pt on 2 L O2 , saturating 100%. Pt kept NPO at this time for ALBINA later today. LAC 20G noted and intact, cardizem drip started at 2.5 mg/hr. Safety measures in place with bed locked and in lowest position, side rails x 3 up, call light within reach and bed alarm on. Will continue to monitor and continue plan of care.
--- NOTE | 2019-02-19 11:00 | NUR ---
NURSE NOTES: Family just left pt bedside and took all belongings except cellphone and wind operations supervisor home. Will continue to monitor.
[2019-02-19] MEDS ORDERED: Zolpidem 5mg tab ORAL PRN ×2 (12:30→20:53)
--- NOTE | 2019-02-19 13:12 | NUR ---
NURSE NOTES: Cardizem drip increased to 10 mg/hr, HR now in 100s. Pt denies pain or discomfort. Will continue to monitor.
[2019-02-19] MEDS ORDERED: dilTIAZem HCl 60mg tab ORAL SCH (14:00)
--- NOTE | 2019-02-19 14:10 | Anethesia Preoperative Eval ---
Anesthesia Pre-op PMH/ROS General Date of Evaluation: Feb 19, 2019 Time of Evaluation: 14:06 Anesthesiologist: Desean ASA Score: ASA 2 Mallampati Score Class I : Soft palate, uvula, fauces, pillars visible Class II: Soft palate, uvula, fauces visible Class III: Soft palate, base of uvula visible Class IV: Only hard plate visible Mallampati Classification: Class II Diagnosis: Atrial fibrillation Surgical Procedure: ALBINA with cardioversion Anesthesia History: none Family History: no anesthesia problems Allergies: Coded Allergies: No Known Allergies (Verified Allergy, Mild, 04/27/10) Medications: see eMAR Patient NPO?: Yes Past Medical History Cardiovascular: Reports: arrhythmia - a fib; Denies: HTN, CAD, DC, valve dz, other Pulmonary: Denies: asthma, COPD, JACEK, other Gastrointestinal/Genitourinary: Reports: GERD - mild; Denies: CRI, ESRD, other Neurologic/Psychiatric: Reports: depression/anxiety; Denies: dementia, CVA, TIA, other Endocrine: Reports: hypothyroidism - hyperthyroidism noncomplient with medication; Denies: DM, steroids, other HEENT: Denies: cataract (L), cataract (R), glaucoma, SQUAXIN (L), SQUAXIN (R), other Hematology/Immune: Reports: anemia; Denies: DVT, bleeding disorder, other Musculoskeletal/Integumentary: Denies: OA, RA, DJD, DDD, edema, other PMH Narrative: as above PSxH Narrative: see H&P Anesthesia Pre-op Phys. Exam Physician Exam Last Vital Signs Date Time Temp Pulse Resp B/P (MAP) Pulse Ox O2 Delivery O2 Flow Rate FiO2 02/19/19 13:00 115 23 101/73 (82) 100 02/19/19 12:00 98.6 02/19/19 09:00 Nasal Cannula 2.0 Constitutional: NAD Neurologic: CN 2-12 intact Cardiovascular: no M/R/G, other - IIR Respiratory: CTA Gastrointestinal: S/NT/ND Airway Exam Mallampati Score: Class II MO: full Neck: flexible ROM: full Teeth: intact Dentures: no upper, no lower Anesthesia Pre-op A/P Labs Hematology Test 02/19/19 05:20 Hemoglobin A Pending Hemoglobin A2 Pending Hemoglobin C Pending Hemoglobin F () Pending Hemoglobin S Pending Variant Hemoglobin Pending Hemoglobin Electrophoresis Interp Pending Hemoglobin Interpretation Pending Hemoglobin Solubility Pending Chemistry Test 02/19/19 05:20 Iron Level 10 ug/dL (50-175) L Total Iron Binding Capacity 344 ug/dL (250-450) Percent Iron Saturation 3 % (15-50) L Unsaturated Iron Binding 334 ug/dL (112-346) Ferritin 6 NG/ML (8-388) L Risk Assessment & Plan Assessment: ASA 2 Plan: MAC Pre-Antibiotics Drug: as scheduled Kilo Anton MD Feb 19, 2019 14:10
--- NOTE | 2019-02-19 14:28 | NUR ---
NURSE NOTES: Pt very upset that ALBINA procedure will not be done today. Pt is hungry and does not want to be in ICU. 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 Discussed pt questions and concerns with Dr Villafuerte also. Cardizem drip running at 10 mcg/hr, HR now 100s. Denies pain or discomfort at this time. Will continue to monitor.
--- NOTE | 2019-02-19 14:33 | Cardiology Report ---
APPROVED REPORT EXAM: Two-dimensional and M-mode echocardiogram with Doppler and color Doppler. INDICATION Atrial Flutter M-Mode DIMENSIONS IVSd0.8 (0.7-1.1cm)Left Atrium (MM)2.0 (1.6-4.0cm) LVDd4.8 (3.5-5.6cm)Aortic Root2.5 (2.0-3.7cm) PWd0.7 (0.7-1.1cm)Aortic Cusp Exc.1.6 (1.5-2.0cm) LVDs4.2 (2.5-4.0cm) PWs1.1 cm Normal left ventricular chamber size. Severe global left ventricular hypokinesis. Abnormal septal motion maybe due to Atrial Fibillation. Left ventricular ejection fraction estimated to be 20-25 %. No evidence of left ventricular hypertrophy. No evidence of pericardial effusion. Mild bi-atrial enlargement. Membrane-like structure noted within the left atrial chamber, the LA into 2 chambers. Right ventricular chamber size is within normal limits. Global right ventricular hypokinesis. Mild focal aortic valve sclerosis with adequate cusp excursion. Thickened mitral valve leaflets with normal excursion. Mitral annulus and aortic root calcification. Pulmonic valve structure not well seen. Normal tricuspid valve structure. IVC measured at 2.1 cm with slight physiologic collapse suggestive of mildly increased RA pressure. A color flow and spectral Doppler study was performed and revealed: Trace aortic regurgitation. Moderate mitral regurgitation. Can not determine left ventricular diastolic function by mitral diastolic velocities due to atrial fibrillation. Moderate to severe tricuspid regurgitation. Tricuspid systolic velocities suggests peak right ventricular systolic pressure of 48 mmHg, consistent with moderate pulmonary hypertension. (RVSP may be under-estimated due to low systolic function of RV)
--- NOTE | 2019-02-19 16:25 | NUR ---
NURSE NOTES: Pt converted back to sinus rhythm. Dr Villafuerte and Dr Cabral made aware. Dr Cabral said pt can go back to tele floor for observation over night. No acute distress. VSS. Will continue to monitor.
--- NOTE | 2019-02-19 17:07 | NUR ---
NURSE NOTES: Friends at bedside. Pt eating dinner brought from outside. Pt still sinus rhythm 80s. Awaiting bed availability. Will continue to monitor.
[2019-02-19] MEDS ORDERED: Metoprolol Succinate XL 50mg tab ORAL SCH (18:00)
--- NOTE | 2019-02-19 19:22 | NUR ---
HAND-OFF: Report given to Herbert Godinez.
--- NOTE | 2019-02-19 19:30 | NUR ---
NURSE NOTES: PATIENT ALERT, ORIENTED X4, RESPIRATION REGULAR, DENIED SOB OR CHEST PAIN AT THIS TIME, ABDOMEN SOFT, NO N/V NOTED, PERIPHERAL LINE TO LEFT ARM 20G, INTACT AND PATENT, MADE LOWER BED POSITION, ON BED ALARM, PROVIDED CALL LIGHT WITHIN REACH, WILL CONTINUE TO MONITOR. PT'S FAMILY STAYED AT BEDSIDE AND WANTED TO TRANSFER TO TELE UNIT.
--- NOTE | 2019-02-19 20:45 | NUR ---
TRANSFER TO FLOOR: Patient transferred to SDU(TELE OVER FLOOR) ROOM 239-2, No acute distress noted. Report given to JAMES BRAN. Belongings and medications given to JAMES BRAN. Family and or S/O informed of transfer.
--- NOTE | 2019-02-19 20:46 | NUR ---
NURSE NOTES: Transferred from ICU. Pt alert and oriented x4, able to make needs known. Pt denies pain or discomfort at this time. Pt connected to surgical supervisor, ST 140,s Pt on 2 L O2 , saturating 100%. LAC 20G noted and intact. Safety measures in place with bed locked and in lowest position, side rails x 3 up, call light within reach and bed alarm on. Family at bedside. Will continue to monitor and continue plan of care.
[2019-02-19] MEDS: Metoprolol Succinate XL 25mg tab ORAL SCH (21:00)
[2019-02-19] MEDS ORDERED: Metoprolol Succinate XL 25mg tab ORAL SCH (22:00)
--- NOTE | 2019-02-19 22:09 | General Progress Note ---
Assessment/Plan Status: stable Assessment/Plan: Assessment - Chronic microcytic anemia - Iron deficiency - transient N/V, and diarrhea, suspect gastroenteritis - hyperthyroidism - h/o atrial fibrillation Recommendations - IV Iron - check Hg Electrophoresis - check stool OB - outpatient EGD / colonoscopy Subjective Allergies: Coded Allergies: No Known Allergies (Verified Allergy, Mild, 04/27/10) Subjective Feels better tolerating PO Iron panel noted Objective Last 24 Hour Vital Signs Date Time Temp Pulse Resp B/P (MAP) Pulse Ox O2 Delivery O2 Flow Rate FiO2 02/19/19 21:00 111 129/81 02/19/19 21:00 140 02/19/19 21:00 Nasal Cannula 2.0 02/19/19 20:00 Nasal Cannula 2.0 02/19/19 20:00 98.4 80 23 110/70 (83) 100 02/19/19 19:00 86 25 105/84 (91) 02/19/19 18:00 86 24 103/84 (90) 97 02/19/19 17:00 81 25 103/84 (90) 100 02/19/19 16:00 76 02/19/19 16:00 98.2 80 22 102/70 (81) 100 02/19/19 15:00 67 23 109/87 (94) 99 02/19/19 14:00 108 18 102/70 (81) 100 02/19/19 13:00 115 23 101/73 (82) 100 02/19/19 12:15 118 102/81 02/19/19 12:00 98.6 125 22 102/81 (88) 93 02/19/19 12:00 118 02/19/19 09:45 120 103/69 02/19/19 09:00 Nasal Cannula 2.0 02/19/19 08:40 120 103/69 02/19/19 08:00 130 02/19/19 08:00 98.0 120 18 103/69 (80) 100 02/19/19 06:10 134 113/75 02/19/19 04:00 97.8 134 18 113/75 (88) 100 02/19/19 04:00 134 02/19/19 00:00 127 02/19/19 00:00 98.4 135 20 116/62 (80) 100 Intake and Output 02/18/19 02/19/19 19:00 07:00 Intake Total 1220 ml 350 ml Output Total 2 ml Balance 1218 ml 350 ml Intake Oral 1220 ml 350 ml Emesis 2 ml # Voids 2 3 # Bowel Movements 2 1 Laboratory Tests 02/19/19 05:20: Hemoglobin A [Pending], Hemoglobin A2 [Pending], Hemoglobin C [Pending], Hemoglobin F () [Pending], Hemoglobin S [Pending], Variant Hemoglobin [ Pending], Hemoglobin Electrophoresis Interp [Pending], Hemoglobin Interpretation [Pending], Hemoglobin Solubility [Pending], Iron Level 10L, Total Iron Binding Capacity 344, Percent Iron Saturation 3L, Unsaturated Iron Binding 334, Ferritin 6L Height (Feet): 5 Height (Inches): 4.00 Weight (Pounds): 120 Objective WDWN NCAT supple CTA RRR abd soft NT ND no edema Juan Chilel MD Feb 19, 2019 22:09
--- NOTE | 2019-02-19 22:47 | NUR ---
NURSE NOTES: Called Dr. Villafuerte to make him aware of patients HR in the 130s-150s Afib. Patient is asymptomatic. No new orders at this time, MD mentioned to observe and monitor overnight and call back if symptomatic.
[2019-02-20] VITALS (30 sets, daily range): BP systolic 94–154; BP diastolic 28–98
--- NOTE | 2019-02-20 | NUR ---
NURSE NOTES: Patients HR 140s Afib. Patient is asymptomatic BP is 109/73, No SOB, No Chest Pain Patient able to make needs Remains AAOX4 Already informed Cardio regarding HR. Will continue to monitor.
--- NOTE | 2019-02-20 02:00 | NUR ---
NURSE NOTES: Patient got up to use the restroom and void Patient has good walking gait No chest pain or SOB HR remains in Afib No acute distress at this time Bed alarm on and call light within reach
--- NOTE | 2019-02-20 04:00 | NUR ---
NURSE NOTES: Patient asleep. HR in the 120s afib Afebrile BP has been stable 110/75 NAD at this time No CP nor SOB
--- NOTE | 2019-02-20 06:00 | NUR ---
NURSE NOTES: Patient asleep. HR remains in the 120s and 130s afib Afebrile BP has remained normotensive throughout the night No symptomatic episodes overnight NAD at this time No complaints of CP nor SOB overnight
--- NOTE | 2019-02-20 07:15 | NUR ---
NURSE NOTES: RECEIVED PATIENT FROM Carol MCCORMICK RN. PATIENT IS LYING IN BED, ASLEEP. HOOKED TO BILLET INSPECTOR. ON 2L NC. NO SIGNS OF DISTRESS. DR THACKER IS AWARE OF THE HR, PT IS ASYMPTOMATIC. SKIN IS INTACT. IV ON L AC G20, SL. CALL LIGHT WITHIN REACH. SIDE RAILS UP. BED AT LOWEST POSITION. WILL CONTINUE TO MONITOR.
--- NOTE | 2019-02-20 07:42 | NUR ---
CASE MANAGEMENT: REVIEW 02/20/2019 SI:HYPERTHYROIDISM. TACHYCARDIA. T 97.5 HR 141 RR 16 B/P 109/73 SATS 99% ON 2L/NC NO LABS TODAY IS: CARDIZEM PO Q8H METOPROLOL PO BID PEPCID PO BID XARELTO PO QD TAPAZOLE PO TID SDU STATUS DCP: PATIENT TO BE DISCHARGED ONCE MEDICALLY ONCE MEDICALLY CLEARED. PLAN OF CARE: OBTAIN CONSENT FOR ALBINA AND cardioversion
--- NOTE | 2019-02-20 07:46 | NUR ---
INSURANCE REVIEWS FAXED TO REPORTED TO: MARCY BURNS# [id number] FAX CLINICALS TO: [phone]
[2019-02-20] MEDS: Metoprolol Succinate XL 25mg tab ORAL SCH (08:41)
[2019-02-20] MEDS ORDERED: Xarelto 10mg tab ORAL SCH ×2 (09:00)
[2019-02-20] MEDS ORDERED: Iron Sucrose 100 MG in NS 55 ML IV SCH ×2 (09:00→12:00)
--- NOTE | 2019-02-20 09:06 | Pulmonology Progress Note ---
Assessment/Plan Assessment/Plan IMPRESSION: 1. Anemia. 2. Hyperthyroidism. 3. Atrial flutter vs A fib; recurrent 4. Medication noncompliance. 5. Abdominal pain DISCUSSION: Discussed with the patient. Continue Xarelto. Cardizem on board Will need ALBINA and cardioversion GI eval noted Subjective Interval Events: Back in A fib; now in [facility] Constitutional: Reports: no symptoms HEENT: Repors: no symptoms Respiratory: Reports: no symptoms Cardiovascular: Reports: no symptoms Gastrointestinal/Abdominal: Reports: no symptoms Allergies: Coded Allergies: No Known Allergies (Verified Allergy, Mild, 04/27/10) Objective Last 24 Hour Vital Signs Date Time Temp Pulse Resp B/P (MAP) Pulse Ox O2 Delivery O2 Flow Rate FiO2 02/20/19 08:41 146 117/98 02/20/19 08:00 97.7 146 22 117/98 (104) 100 02/20/19 04:00 Nasal Cannula 2.0 02/20/19 04:00 98.9 103 18 110/75 (87) 100 02/20/19 04:00 124 02/20/19 00:00 123 02/20/19 00:00 Nasal Cannula 2.0 02/20/19 00:00 97.5 141 16 109/73 (85) 99 02/20/19 00:00 145 02/19/19 21:00 111 129/81 02/19/19 21:00 140 02/19/19 21:00 Nasal Cannula 2.0 02/19/19 20:45 98.0 137 20 104/65 (78) 100 02/19/19 20:00 Nasal Cannula 2.0 02/19/19 20:00 98.4 80 23 110/70 (83) 100 02/19/19 19:00 86 25 105/84 (91) 02/19/19 18:00 86 24 103/84 (90) 97 02/19/19 17:00 81 25 103/84 (90) 100 02/19/19 16:00 76 02/19/19 16:00 98.2 80 22 102/70 (81) 100 02/19/19 15:00 67 23 109/87 (94) 99 02/19/19 14:00 108 18 102/70 (81) 100 02/19/19 13:00 115 23 101/73 (82) 100 02/19/19 12:15 118 102/81 02/19/19 12:00 98.6 125 22 102/81 (88) 93 02/19/19 12:00 118 02/19/19 09:45 120 103/69 Intake and Output 02/19/19 02/20/19 19:00 07:00 Intake Total 590 ml Balance 590 ml Intake Oral 590 ml # Voids 2 2 General Appearance: no acute distress HEENT: normocephalic Respiratory/Chest: chest wall non-tender, lungs clear Cardiovascular: normal peripheral pulses, normal rate Current Medications Medications (Trade) Dose Ordered Sig/Jae Route PRN Reason Start Time Stop Time Status Last Admin Dose Admin Acetaminophen (Tylenol) 650 mg Q6H PRN ORAL Mild Pain/Temp > 100.5 02/19/19 20:52 03/21/19 20:51 Famotidine (Pepcid) 20 mg BID ORAL 02/20/19 09:00 03/20/19 08:59 Iron Sucrose 100 mg/Sodium Chloride 60 ml @ 240 mls/hr BEDTIME IV 02/20/19 09:00 02/23/19 21:14 Methimazole (Tapazole) 10 mg THREE TIMES A DAY ORAL 02/20/19 09:00 03/19/19 08:59 Metoprolol Succinate (Toprol XL) 25 mg Q12HR ORAL 02/19/19 21:00 03/21/19 20:59 02/20/19 08:41 Ondansetron HCl (Zofran ODT) 4 mg Q6H PRN ORAL Nausea & Vomiting 02/19/19 20:52 03/21/19 20:51 Rivaroxaban (Xarelto) 20 mg DAILY ORAL 02/20/19 09:00 03/20/19 08:59 Zolpidem Tartrate (Ambien) 5 mg HSPRN PRN ORAL Insomnia 02/19/19 20:53 02/26/19 20:52 02/19/19 21:00 Chano Cabral MD Feb 20, 2019 09:06
[2019-02-20] MEDS ORDERED: Propofol 200mg/20ml IV ONE (09:37)
[2019-02-20] MEDS ORDERED: Midazolam 2mg/2ml Inj ONE (09:37)
[2019-02-20] MEDS ORDERED: fentaNYL 100 mcg/2 mL IV ONE (09:37)
--- NOTE | 2019-02-20 09:50 | NUR ---
NURSE NOTES: PATIENT BROUGHT DOWN TO OR. ENDORSED ACCORDINGLY.
[2019-02-20] MEDS ORDERED: NS 500ML ONE (10:00)
--- NOTE | 2019-02-20 10:27 | Cardiology Progress Note ---
Assessment/Plan Status: stable Assessment/Plan Assessment/Plan Status: stable Assessment/Plan: Assessment 1. Anemia. 2. Hyperthyroidism. 3. Atrial flutter. 4. Medication noncompliance. Plan Echocardiogram with systolic dysfunction, will need to re-check when in sinus rhythm, likely tachycardia induced cardiomyopathy Anticoagulation with xarelto ALBINA cardioversion today Methimazole per Endocrine Critical care 35 minutes Subjective Cardiovascular: Reports: no symptoms Respiratory: Reports: no symptoms Gastrointestinal/Abdominal: Reports: no symptoms Genitourinary: Reports: no symptoms Subjective Remains in AFIB and SVT overnight rates up to 150 ,no pain no discomfort. Free T4 elevated, on methimazole Echo with systolic dysfunction LVEF 20-25 % and severe TR and moderate pulmonary hypertension No chest pain no shortness of breath For ALBINA cardioversion today Objective Last 24 Hour Vital Signs Date Time Temp Pulse Resp B/P (MAP) Pulse Ox O2 Delivery O2 Flow Rate FiO2 02/20/19 09:00 143 02/20/19 09:00 Nasal Cannula 2.0 02/20/19 08:41 146 117/98 02/20/19 08:00 97.7 146 22 117/98 (104) 100 02/20/19 04:00 Nasal Cannula 2.0 02/20/19 04:00 98.9 103 18 110/75 (87) 100 02/20/19 04:00 124 02/20/19 00:00 123 02/20/19 00:00 Nasal Cannula 2.0 02/20/19 00:00 97.5 141 16 109/73 (85) 99 02/20/19 00:00 145 02/19/19 21:00 111 129/81 02/19/19 21:00 140 02/19/19 21:00 Nasal Cannula 2.0 02/19/19 20:45 98.0 137 20 104/65 (78) 100 02/19/19 20:00 Nasal Cannula 2.0 02/19/19 20:00 98.4 80 23 110/70 (83) 100 02/19/19 19:00 86 25 105/84 (91) 02/19/19 18:00 86 24 103/84 (90) 97 02/19/19 17:00 81 25 103/84 (90) 100 02/19/19 16:00 76 02/19/19 16:00 98.2 80 22 102/70 (81) 100 02/19/19 15:00 67 23 109/87 (94) 99 02/19/19 14:00 108 18 102/70 (81) 100 02/19/19 13:00 115 23 101/73 (82) 100 02/19/19 12:15 118 102/81 02/19/19 12:00 98.6 125 22 102/81 (88) 93 02/19/19 12:00 118 General Appearance: no apparent distress, alert EENT: PERRL/EOMI, normal ENT inspection Neck: non-tender, normal alignment, supple, normal inspection, no JVD Rhythm: ST, Afib, SVT Cardiovascular: normal peripheral pulses, normal rate, tachycardia, arrhythmia Respiratory/Chest: chest wall non-tender, lungs clear, normal breath sounds, no respiratory distress, no accessory muscle use Abdomen: normal bowel sounds, non tender, soft, no organomegaly Extremities: normal range of motion, non-tender Neurologic: information assistant II-XII grossly normal, no motor/sensory deficits Intake and Output 02/19/19 02/20/19 19:00 07:00 Intake Total 590 ml Balance 590 ml Intake Oral 590 ml # Voids 2 2 Trevon Villafuerte MD Feb 20, 2019 10:27
--- NOTE | 2019-02-20 10:29 | NUR ---
HAND-OFF: Report given to Bruno Jain RN.
--- NOTE | 2019-02-20 10:30 | Operative Note - PDOC ---
Operative Note Operative Note Date of Operation/Procedure: Feb 20, 2019 Chief Complaint: palpitations Pre-op Diagnosis: atrial fibrillation SVT Procedure: ALBINA cardioversion Post-op Diagnosis: SVT Post-op Diagnosis: same as pre-op Surgeon: Noy Anesthesia: moderate sedation Specimen: none Complications: none Condition: unstable Estimated Blood Loss: none Drains: none Implant(s) used?: No Indications for Procedure SVT AFIB rapid response Description of Procedure ALBINA was performed, no LA thrombus noted 200 joules attempted three times, no resolution Adenosine 6 mg x2 given via IV with no resolution, remains in SVT with rates 160 -180 To ICU on amiodarone and esmolol gtt EP consult for ablation Trevon Villafuerte MD Feb 20, 2019 10:30
--- NOTE | 2019-02-20 10:30 | Pre-Procedure Note/Attestation ---
Pre-Procedure Note/Attestation Complete Prior to Procedure Planned Procedure: bilateral Indications for Procedure Pre-Operative Diagnosis: atrial fibrillation SVT Attestation I attest that I discussed the nature of the procedure; its benefits; risks and complications; and alternatives (and the risks and benefits of such alternatives ), prior to the procedure, with the patient (or the patient's legal telecommunications sales representative). I attest that, if there was a reasonable possibility of needing a blood transfusion, the patient (or the patient's legal telecommunications sales representative) was given the [facility] standardized written summary, pursuant to the Kimo Yara Blood Safety Act ([place] Health and Safety Code # 1645, as amended). I attest that I re-evaluated the patient just prior to the surgery and that there has been no change in the patient's H&P, except as documented below: Trevon Villafuerte MD Feb 20, 2019 10:30
--- NOTE | 2019-02-20 10:47 | Immediate Post-Op Evaluation ---
Immediate Post-Op Evalulation Immediate Post-Op Evalulation Procedure: ALBINA Cardioversion Date of Evaluation: Feb 20, 2019 Time of Evaluation: 10:45 IV Fluids: 300 Blood Products: none Estimated Blood Loss: none Urinary Output: none Blood Pressure Systolic: 154 Blood Pressure Diastolic: 88 Pulse Rate: 146 Respiratory Rate: 20 O2 Sat by Pulse Oximetry: 99 Temperature (Fahrenheit): 97.8 Pain Score (1-10): 0 Nausea: No Vomiting: No Complications none Patient Status: reacts, patent, none Hydration Status: adequate Kilo Anton MD Feb 20, 2019 10:47
[2019-02-20] MEDS ORDERED: Adenosine 6mg/2ml Inj ONE (10:53)
[2019-02-20] MEDS ORDERED: Amiodarone 900 MG in D5W 500ml 482 ML IV SCH ×4 (11:30)
[2019-02-20] MEDS ORDERED: Esmolol 100mg/10ml Inj IV ONE ×2 (11:30)
[2019-02-20] MEDS: Iron Sucrose 100 MG in NS 55 ML IV SCH ×2 (11:36→21:27)
--- NOTE | 2019-02-20 11:40 | NUR ---
NURSE NOTES: RECEIVED PATIENT FROM MARIELA RAMIREZ OF PACU. PATIENT IS ALERT, AWAKE. SEEN LYING IN BED. DENIES ANY PAIN OF THE MOMENT. ON 2L NC. NO SIGNS OF DISTRESS. IV ON R AC G22, SL. CALL LIGHT WITHIN IN REACH. BED AT LOWEST POSITION. SIDE RAILS UP. WILL CONTINUE TO MONITOR.
[2019-02-20] MEDS: Xarelto 10mg tab ORAL SCH (13:02)
--- NOTE | 2019-02-20 13:18 | Cardiac Electrophysiology PN ---
Subjective Subjective [id number] Objective Last 24 Hour Vital Signs Date Time Temp Pulse Resp B/P (MAP) Pulse Ox O2 Delivery O2 Flow Rate FiO2 02/20/19 12:00 132 02/20/19 11:12 98.3 137 20 128/85 100 Nasal Cannula 3 02/20/19 11:02 142 15 121/66 100 Nasal Cannula 3 02/20/19 10:52 151 21 136/59 100 Nasal Cannula 3 02/20/19 10:47 149 21 126/60 100 Nasal Cannula 3 02/20/19 10:47 146 20 99 02/20/19 10:42 98.1 152 15 154/88 100 Nasal Cannula 3 02/20/19 09:00 143 02/20/19 09:00 Nasal Cannula 2.0 02/20/19 08:41 146 117/98 02/20/19 08:00 97.7 146 22 117/98 (104) 100 02/20/19 04:00 Nasal Cannula 2.0 02/20/19 04:00 98.9 103 18 110/75 (87) 100 02/20/19 04:00 124 02/20/19 00:00 123 02/20/19 00:00 Nasal Cannula 2.0 02/20/19 00:00 97.5 141 16 109/73 (85) 99 02/20/19 00:00 145 02/19/19 21:00 111 129/81 02/19/19 21:00 140 02/19/19 21:00 Nasal Cannula 2.0 02/19/19 20:45 98.0 137 20 104/65 (78) 100 02/19/19 20:00 Nasal Cannula 2.0 02/19/19 20:00 98.4 80 23 110/70 (83) 100 02/19/19 19:00 86 25 105/84 (91) 02/19/19 18:00 86 24 103/84 (90) 97 02/19/19 17:00 81 25 103/84 (90) 100 02/19/19 16:00 76 02/19/19 16:00 98.2 80 22 102/70 (81) 100 02/19/19 15:00 67 23 109/87 (94) 99 02/19/19 14:00 108 18 102/70 (81) 100 Intake and Output 02/19/19 02/20/19 19:00 07:00 Intake Total 590 ml Balance 590 ml Intake Oral 590 ml # Voids 2 2 Bakari Tidwell MD Feb 20, 2019 13:18
[2019-02-20] MEDS ORDERED: Digoxin 0.5mg/2ml Inj IVP SCH (13:21)
--- NOTE | 2019-02-20 13:55 | NUR ---
NURSE NOTES: DIGOXIN GIVEN. NOTED HR of 129BPM. PATIENT IS ASYMPTOMATIC. NO SIGNS OF DISTRESS. FAMILY SEEN AT THE BEDSIDE. WILL CONTINUE TO MONITOR.
--- NOTE | 2019-02-20 15:00 | NUR ---
NURSE NOTES: STILL ON AMIODARONE DRIP FLOWING HOSPITAL PROTOCOL. WILL CONTINUE TO MONITOR.
--- NOTE | 2019-02-20 16:30 | NUR ---
NURSE NOTES: PATIENT KEPT CLEAN AND DRY. NO SIGNS OF DISTRESS. WILL CONTINUE TO MONITOR.
--- NOTE | 2019-02-20 16:36 | Cardiology Report ---
APPROVED REPORT EKG Measurement Heart [id number] Atrial flutter with variable AV block Nonspecific ST abnormality Abnormal ECG
--- NOTE | 2019-02-20 18:54 | General Progress Note ---
Assessment/Plan Problem List: (1) Graves' disease with thyrotoxic crisis ICD Codes: E05.01 - Thyrotoxicosis with diffuse goiter with thyrotoxic crisis or storm SNOMED: 93868723 (2) A-fib ICD Codes: I48.91 - Unspecified atrial fibrillation SNOMED: 58819822 Status: stable Assessment/Plan: - DC Tapazole 10 mg tid - DC Metoprolol - start PTU 300 mg q 8 hours - start Inderal 40 mg q 8 hours - Dr Villafuerte will change Amiodarone to Flecanide - discussed with Dr Villafuerte Subjective Allergies: Coded Allergies: No Known Allergies (Verified Allergy, Mild, 04/27/10) All Systems: reviewed and negative except above Subjective events noted interval notes reviewed transferred to ICU for afib w/ RVR Objective Last 24 Hour Vital Signs Date Time Temp Pulse Resp B/P (MAP) Pulse Ox O2 Delivery O2 Flow Rate FiO2 02/20/19 18:00 118 26 119/76 (90) 100 02/20/19 17:00 119 25 115/69 (84) 100 02/20/19 16:30 127 23 102/67 (79) 100 02/20/19 16:00 109 02/20/19 16:00 97.5 125 22 115/82 (93) 97 02/20/19 16:00 Nasal Cannula 2.0 02/20/19 15:30 118 21 104/57 (73) 100 02/20/19 15:00 126 33 110/73 (85) 100 02/20/19 14:30 124 22 104/58 (73) 100 02/20/19 14:00 123 22 112/64 (80) 100 02/20/19 13:49 125 02/20/19 13:30 124 27 98/57 (71) 100 02/20/19 13:00 139 18 98/79 (85) 100 02/20/19 12:30 133 20 102/78 (86) 100 02/20/19 12:00 Nasal Cannula 2.0 02/20/19 12:00 97.3 132 18 109/70 (83) 100 02/20/19 12:00 132 02/20/19 11:12 98.3 137 20 128/85 100 Nasal Cannula 3 02/20/19 11:02 142 15 121/66 100 Nasal Cannula 3 02/20/19 10:52 151 21 136/59 100 Nasal Cannula 3 02/20/19 10:47 149 21 126/60 100 Nasal Cannula 3 02/20/19 10:47 146 20 99 02/20/19 10:42 98.1 152 15 154/88 100 Nasal Cannula 3 02/20/19 09:00 143 02/20/19 09:00 Nasal Cannula 2.0 02/20/19 08:41 146 117/98 02/20/19 08:00 97.7 146 22 117/98 (104) 100 02/20/19 04:00 Nasal Cannula 2.0 02/20/19 04:00 98.9 103 18 110/75 (87) 100 02/20/19 04:00 124 02/20/19 00:00 123 02/20/19 00:00 Nasal Cannula 2.0 02/20/19 00:00 97.5 141 16 109/73 (85) 99 02/20/19 00:00 145 02/19/19 21:00 111 129/81 02/19/19 21:00 140 02/19/19 21:00 Nasal Cannula 2.0 02/19/19 20:45 98.0 137 20 104/65 (78) 100 02/19/19 20:00 Nasal Cannula 2.0 02/19/19 20:00 98.4 80 23 110/70 (83) 100 02/19/19 19:00 86 25 105/84 (91) Intake and Output 02/19/19 02/20/19 19:00 07:00 Intake Total 590 ml Balance 590 ml Intake Oral 590 ml # Voids 2 2 Height (Feet): 5 Height (Inches): 4.00 Weight (Pounds): 120 General Appearance: no apparent distress Neck: normal alignment Cardiovascular: tachycardia Respiratory/Chest: lungs clear Abdomen: normal bowel sounds Edema: no edema noted Arm (L), no edema noted Arm (R), no edema noted Leg (L), no edema noted Leg (R), no edema noted Pedal (L), no edema noted Pedal (R), no edema noted Generalized Objective Current Medications Medications (Trade) Dose Ordered Sig/Jae Route PRN Reason Start Time Stop Time Status Last Admin Dose Admin Acetaminophen (Tylenol) 650 mg Q6H PRN ORAL Mild Pain/Temp > 100.5 02/20/19 12:00 03/21/19 11:59 Amiodarone HCl 900 mg/Dextrose 500 ml @ 0 mls/hr Q24H IV 02/20/19 11:30 02/21/19 11:29 02/20/19 11:35 Digoxin (Lanoxin) 0.25 mg DAILY ORAL 02/21/19 09:00 03/23/19 08:59 Famotidine (Pepcid) 20 mg BID ORAL 02/20/19 18:00 03/20/19 08:59 02/20/19 18:03 Iron Sucrose 100 mg/Sodium Chloride 60 ml @ 240 mls/hr BEDTIME IV 02/20/19 12:00 03/22/19 11:59 02/20/19 11:36 Methimazole (Tapazole) 10 mg THREE TIMES A DAY ORAL 02/20/19 13:00 03/19/19 08:59 02/20/19 18:03 Metoprolol Tartrate (Lopressor) 100 mg EVERY 12 HOURS ORAL 02/20/19 21:00 03/22/19 20:59 Ondansetron HCl (Zofran ODT) 4 mg Q6H PRN ORAL Nausea & Vomiting 02/20/19 12:00 03/21/19 11:59 Rivaroxaban (Xarelto) 20 mg DAILY ORAL 02/20/19 11:30 03/20/19 11:29 02/20/19 13:02 Zolpidem Tartrate (Ambien) 5 mg HSPRN PRN ORAL Insomnia 02/20/19 21:00 02/26/19 20:52 Ian Garrett MD Feb 20, 2019 18:54
[2019-02-20] MEDS: Propranolol 40mg tab ORAL SCH (19:07)
--- NOTE | 2019-02-20 19:08 | NUR ---
HAND-OFF: Report given to Tyshawn Cespedes RN.
--- NOTE | 2019-02-20 19:30 | NUR ---
NURSE NOTES: Received pt in no apparent distress; AAOx4; denies pain denies SOB. sitting upright on bed entertaining relatives. Remains on afib at 106-110 with RVR; BP stable. No edema. PIV site on RAC patent with Amiodorone gtt infusing at 0.5mg/min. Voiding via bedside commode with assist. Plan of care explained; will monitor VS and heart rhythm.
[2019-02-20] MEDS: Propylthiouracil 50mg tab ORAL SCH (20:25)
[2019-02-20] MEDS ORDERED: Zolpidem 5mg tab ORAL PRN (21:00)
--- NOTE | 2019-02-20 21:30 | NUR ---
NURSE NOTES: Attempted to insert a HL on Lhand but unsuccessful due to poor veins. Warm compress applied to IV sites. Assisted to BSC.
--- NOTE | 2019-02-20 22:30 | Consultation ---
DATE OF CONSULTATION: 02/20/2019 NOTE: "POOR AUDIO QUALITY" CARDIAC ELECTROPHYSIOLOGY CONSULTATION CONSULTING PHYSICIAN: Bakari Tidwell M.D. REFERRING PHYSICIAN: Dr. Villafuerte. REASON FOR CONSULTATION: Atrial fibrillation with rapid ventricular response. HISTORY OF PRESENT ILLNESS: The patient is a very pleasant 43-year-old lady with history of hyperthyroidism and Graves, who presented to the hospital with rapid heart rates. The patient has been off of methimazole for a couple of weeks. TSH is suppressed and T4 was elevated. The patient was evaluated by Dr. Villafuerte, her optical instrument inspector, and metoprolol was increased to 100 mg b.i.d. and was also started on Cardizem drip, however, the heart rate could not be controlled. The patient then underwent transesophageal echocardiogram and cardioversion with atrial fibrillation, however, the patient had multiple recurrent episodes. The patient was then transferred to intensive care unit and per my request, she was started on amiodarone drip as transesophageal echocardiogram showed no evidence of intracardiac thrombi. The patient was on a 200-joule cardioversion 3 times. The patient also received adenosine 6 mg x2 with no resolution and remained in SVT versus atrial flutter. At the time of my evaluation, the patient is in intensive care unit. REVIEW OF SYSTEMS: Negative other than what was mentioned in the history of present illness. PAST MEDICAL HISTORY: 1. Hyperthyroidism. 2. Atrial fibrillation/flutter, status post cardioversion as mentioned above. FAMILY HISTORY: Noncontributory. SOCIAL HISTORY: She does not smoke or drink alcohol. PHYSICAL EXAMINATION: VITAL SIGNS: Show blood pressure of 128/85, pulse is 137, respirations 18, and she is afebrile. HEAD AND NECK: Shows no JVD. LUNGS: Clear. CARDIOVASCULAR: Shows irregularly irregular S1 and S2 with no gallop or murmur. ABDOMEN: Soft. EXTREMITIES: No pitting edema. LABORATORY AND DIAGNOSTIC DATA: Her labs show white count of 7.8, hemoglobin 8.1, hematocrit 29.1, and platelet count is 344,000. Sodium 140, potassium 3.9, BUN 15, creatinine 0.8, and glucose of 124. First troponin is negative. TSH is less than 0.010. T4 is 4.49. ASSESSMENT AND PLAN: 1. Atrial fibrillation with rapid ventricular response. The patient underwent transesophageal echocardiogram that showed no evidence of cardiac thrombi. The patient had 3 attempts at cardioversion that were unsuccessful in keeping the patient in sinus rhythm. At this time, I would add IV amiodarone and gradually taper it up to p.o., trying to keep in sinus rhythm. It is of note that telemetry strip on February 19, 2019, at 1537 hours, the patient was in sinus rhythm. In the meantime, I will maximize the beta-selina with metoprolol 100 mg b.i.d. I will add digoxin to her medical regimen and keep the patient on Xarelto 20 mg daily for anticoagulation purposes. It is of note that controlling the patient's hyperthyroidism has a significant role in keeping the patient in sinus rhythm. 2. 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 We will try to control with a combination of digoxin and metoprolol that would be beneficial for cardiomyopathy as well. 3. Anemia. 4. Hyperthyroidism, on Tapazole. Thank you very much for allowing me to participate in the care of this very pleasant lady. Please do not hesitate to contact me for any questions regarding my evaluation. Bakari Tidwell M.D. DR: MARCIO JOB#: [id number] CC:
--- NOTE | 2019-02-20 23:30 | NUR ---
NURSE NOTES: Converted to NSR, rate 83. Amiodorone gtt continues at 0.5mg/min. Ambien 5 mg given as requested.
[2019-02-21] VITALS (23 sets, daily range): BP systolic 93–125; BP diastolic 49–85
--- NOTE | 2019-02-21 02:00 | NUR ---
NURSE NOTES: Sleeping, HOB elevated. BP stable, continues on NSR.
--- NOTE | 2019-02-21 04:00 | NUR ---
NURSE NOTES: Continues to sleep. Left undisturbed. VSS. Remains on NSR, at 77bpm; no ectopy. BP stable. Amiodorone gtt continues at 0.5mg/min; IV site patent.
[2019-02-21] MEDS: Propylthiouracil 50mg tab ORAL SCH ×3 (06:07→21:14)
[2019-02-21] MEDS: Propranolol 40mg tab ORAL SCH ×3 (06:07→21:14)
--- NOTE | 2019-02-21 06:22 | NUR ---
NURSE NOTES: Awakened to administer due meds. Assisted to BSC, voided. IV site remains intact. Denies pain, denies SOB. Remains on NSR; BP stable
--- NOTE | 2019-02-21 07:05 | NUR ---
HAND-OFF: Report given to Alisa RAMIREZ
--- NOTE | 2019-02-21 07:06 | NUR ---
NURSE NOTES: RECEIVED PATIENT FROM Tyshawn LIMON RN. PATIENT IS SEEN LYING IN BED, ASLEEP. SINUS RHYTHM ON THE MONITOR. ON 2L NC. NO SIGNS OF DISTRESS. SKIN IS INTACT. IV ON R AC G22, AMIODARONE DRIP RUNNING AT 0.5MG/MIN, FOLLOWING HOSPITAL PROTOCOL. CALL LIGHT WITHIN REACH. SIDE RAILS UP. BED AT LOWEST POSITION. WILL CONTINUE TO MONITOR.
--- NOTE | 2019-02-21 07:39 | General Progress Note ---
Assessment/Plan Problem List: (1) Graves' disease with thyrotoxic crisis ICD Codes: E05.01 - Thyrotoxicosis with diffuse goiter with thyrotoxic crisis or storm SNOMED: 15691669 (2) A-fib ICD Codes: I48.91 - Unspecified atrial fibrillation SNOMED: 94319834 Status: stable Assessment/Plan: - conitnue PTU 300 mg q 8 hours - continue Inderal 40 mg q 8 hours Subjective Allergies: Coded Allergies: No Known Allergies (Verified Allergy, Mild, 04/27/10) All Systems: reviewed and negative except above Subjective events noted interval notes reviewed Objective Last 24 Hour Vital Signs Date Time Temp Pulse Resp B/P (MAP) Pulse Ox O2 Delivery O2 Flow Rate FiO2 02/21/19 06:07 83 93/72 02/21/19 06:00 86 23 93/72 (79) 100 02/21/19 05:30 77 27 104/58 (73) 100 02/21/19 05:00 78 22 98/49 (65) 100 02/21/19 04:30 77 24 105/64 (78) 100 02/21/19 04:00 77 02/21/19 04:00 Nasal Cannula 2.0 02/21/19 04:00 98.6 77 22 106/72 (83) 100 02/21/19 03:30 79 22 110/68 (82) 100 02/21/19 03:00 80 26 97/51 (66) 100 02/21/19 02:30 82 27 115/53 (73) 100 02/21/19 02:00 83 30 105/54 (71) 100 02/21/19 01:30 83 23 111/67 (82) 100 02/21/19 01:00 82 23 106/53 (70) 100 02/21/19 00:30 82 27 97/56 (70) 100 02/21/19 00:00 98.7 84 27 109/66 (80) 99 02/21/19 00:00 83 02/21/19 00:00 Nasal Cannula 2.0 02/20/19 23:30 84 22 120/28 (58) 02/20/19 23:00 111 23 121/76 (91) 02/20/19 22:30 112 25 104/83 (90) 98 02/20/19 22:00 106 16 94/64 (74) 100 02/20/19 21:30 109 24 98/62 (74) 100 02/20/19 21:00 107 23 110/78 (89) 100 02/20/19 20:30 108 23 98/60 (73) 100 02/20/19 20:00 121 02/20/19 20:00 111 23 115/64 (81) 100 02/20/19 20:00 Nasal Cannula 2.0 02/20/19 19:30 98.3 111 19 107/71 (83) 100 02/20/19 19:07 126 120/82 02/20/19 19:00 123 22 120/82 (95) 100 02/20/19 18:00 118 26 119/76 (90) 100 02/20/19 17:00 119 25 115/69 (84) 100 02/20/19 16:30 127 23 102/67 (79) 100 02/20/19 16:00 109 02/20/19 16:00 97.5 125 22 115/82 (93) 97 02/20/19 16:00 Nasal Cannula 2.0 02/20/19 15:30 118 21 104/57 (73) 100 02/20/19 15:00 126 33 110/73 (85) 100 02/20/19 14:30 124 22 104/58 (73) 100 02/20/19 14:00 123 22 112/64 (80) 100 02/20/19 13:49 125 02/20/19 13:30 124 27 98/57 (71) 100 02/20/19 13:00 139 18 98/79 (85) 100 02/20/19 12:30 133 20 102/78 (86) 100 02/20/19 12:00 Nasal Cannula 2.0 02/20/19 12:00 97.3 132 18 109/70 (83) 100 02/20/19 12:00 132 02/20/19 11:12 98.3 137 20 128/85 100 Nasal Cannula 3 02/20/19 11:02 142 15 121/66 100 Nasal Cannula 3 02/20/19 10:52 151 21 136/59 100 Nasal Cannula 3 02/20/19 10:47 149 21 126/60 100 Nasal Cannula 3 02/20/19 10:47 146 20 99 02/20/19 10:42 98.1 152 15 154/88 100 Nasal Cannula 3 02/20/19 09:00 143 02/20/19 09:00 Nasal Cannula 2.0 02/20/19 08:41 146 117/98 02/20/19 08:00 97.7 146 22 117/98 (104) 100 Intake and Output 02/20/19 02/21/19 18:59 06:59 Intake Total 1547.61 ml 1029.92 ml Output Total 600 ml 1000 ml Balance 947.61 ml 29.92 ml Intake Oral 750 ml 770 ml IV Total 797.61 ml 259.92 ml Output Urine Total 600 ml 1000 ml # Bowel Movements 1 Height (Feet): 5 Height (Inches): 4.00 Weight (Pounds): 138 General Appearance: no apparent distress Neck: normal alignment Cardiovascular: regular rhythm Respiratory/Chest: lungs clear Abdomen: normal bowel sounds Pelvis: normal external exam Edema: no edema noted Arm (L), no edema noted Arm (R), no edema noted Leg (L), no edema noted Leg (R), no edema noted Pedal (L), no edema noted Pedal (R), no edema noted Generalized Objective Current Medications Medications (Trade) Dose Ordered Sig/Jae Route PRN Reason Start Time Stop Time Status Last Admin Dose Admin Acetaminophen (Tylenol) 650 mg Q6H PRN ORAL Mild Pain/Temp > 100.5 02/20/19 12:00 03/21/19 11:59 Amiodarone HCl 900 mg/Dextrose 500 ml @ 0 mls/hr Q24H IV 02/20/19 11:30 02/21/19 11:29 02/20/19 11:35 Digoxin (Lanoxin) 0.25 mg DAILY ORAL 02/21/19 09:00 03/23/19 08:59 Famotidine (Pepcid) 20 mg BID ORAL 02/20/19 18:00 03/20/19 08:59 02/20/19 18:03 Iron Sucrose 100 mg/Sodium Chloride 60 ml @ 240 mls/hr BEDTIME IV 02/20/19 12:00 03/22/19 11:59 02/20/19 21:27 Ondansetron HCl (Zofran ODT) 4 mg Q6H PRN ORAL Nausea & Vomiting 02/20/19 12:00 03/21/19 11:59 Propranolol HCl (Inderal) 40 mg Q8HR ORAL 02/20/19 20:00 03/22/19 19:59 02/21/19 06:07 Propylthiouracil (Ptu) 300 mg Q8HR ORAL 02/20/19 20:00 03/22/19 19:59 02/21/19 06:07 Rivaroxaban (Xarelto) 20 mg DAILY ORAL 02/20/19 11:30 03/20/19 11:29 02/20/19 13:02 Zolpidem Tartrate (Ambien) 5 mg HSPRN PRN ORAL Insomnia 02/20/19 21:00 02/26/19 20:52 02/20/19 23:39 Ian Garrett MD Feb 21, 2019 07:39
--- NOTE | 2019-02-21 08:30 | Cardiology Progress Note ---
Assessment/Plan Status: stable Assessment/Plan Assessment/Plan Status: stable Assessment/Plan: Assessment 1. Anemia. 2. Hyperthyroidism. 3. Atrial flutter. 4. Medication noncompliance. Plan Continue inderal Continue xarelto for 4 weeks Repeat TTE in 1-2 weeks if remains in sinus to determine true LVEF Continue PTU Transfer to floor Subjective Cardiovascular: Reports: no symptoms Respiratory: Reports: no symptoms Gastrointestinal/Abdominal: Reports: no symptoms Genitourinary: Reports: no symptoms Subjective Converted to sinus last night 1130 pm, no acute events, heart rates controlled on inderal. Objective Last 24 Hour Vital Signs Date Time Temp Pulse Resp B/P (MAP) Pulse Ox O2 Delivery O2 Flow Rate FiO2 02/21/19 08:00 73 23 94/82 (86) 100 02/21/19 07:30 74 23 94/71 (79) 100 02/21/19 07:00 74 22 94/62 (73) 100 02/21/19 06:07 83 93/72 02/21/19 06:00 86 23 93/72 (79) 100 02/21/19 05:30 77 27 104/58 (73) 100 02/21/19 05:00 78 22 98/49 (65) 100 02/21/19 04:30 77 24 105/64 (78) 100 02/21/19 04:00 77 02/21/19 04:00 Nasal Cannula 2.0 02/21/19 04:00 98.6 77 22 106/72 (83) 100 02/21/19 03:30 79 22 110/68 (82) 100 02/21/19 03:00 80 26 97/51 (66) 100 02/21/19 02:30 82 27 115/53 (73) 100 02/21/19 02:00 83 30 105/54 (71) 100 02/21/19 01:30 83 23 111/67 (82) 100 02/21/19 01:00 82 23 106/53 (70) 100 02/21/19 00:30 82 27 97/56 (70) 100 02/21/19 00:00 98.7 84 27 109/66 (80) 99 02/21/19 00:00 83 02/21/19 00:00 Nasal Cannula 2.0 02/20/19 23:30 84 22 120/28 (58) 02/20/19 23:00 111 23 121/76 (91) 02/20/19 22:30 112 25 104/83 (90) 98 02/20/19 22:00 106 16 94/64 (74) 100 02/20/19 21:30 109 24 98/62 (74) 100 02/20/19 21:00 107 23 110/78 (89) 100 02/20/19 20:30 108 23 98/60 (73) 100 02/20/19 20:00 121 02/20/19 20:00 111 23 115/64 (81) 100 02/20/19 20:00 Nasal Cannula 2.0 02/20/19 19:30 98.3 111 19 107/71 (83) 100 02/20/19 19:07 126 120/82 02/20/19 19:00 123 22 120/82 (95) 100 02/20/19 18:00 118 26 119/76 (90) 100 02/20/19 17:00 119 25 115/69 (84) 100 02/20/19 16:30 127 23 102/67 (79) 100 02/20/19 16:00 109 02/20/19 16:00 97.5 125 22 115/82 (93) 97 02/20/19 16:00 Nasal Cannula 2.0 02/20/19 15:30 118 21 104/57 (73) 100 02/20/19 15:00 126 33 110/73 (85) 100 02/20/19 14:30 124 22 104/58 (73) 100 02/20/19 14:00 123 22 112/64 (80) 100 02/20/19 13:49 125 02/20/19 13:30 124 27 98/57 (71) 100 02/20/19 13:00 139 18 98/79 (85) 100 02/20/19 12:30 133 20 102/78 (86) 100 02/20/19 12:00 Nasal Cannula 2.0 02/20/19 12:00 97.3 132 18 109/70 (83) 100 02/20/19 12:00 132 02/20/19 11:12 98.3 137 20 128/85 100 Nasal Cannula 3 02/20/19 11:02 142 15 121/66 100 Nasal Cannula 3 02/20/19 10:52 151 21 136/59 100 Nasal Cannula 3 02/20/19 10:47 149 21 126/60 100 Nasal Cannula 3 02/20/19 10:47 146 20 99 02/20/19 10:42 98.1 152 15 154/88 100 Nasal Cannula 3 02/20/19 09:00 143 02/20/19 09:00 Nasal Cannula 2.0 02/20/19 08:41 146 117/98 General Appearance: no apparent distress, alert EENT: PERRL/EOMI, normal ENT inspection, TMs normal, pharynx normal Neck: non-tender, normal alignment, supple, normal inspection Rhythm: NSR Cardiovascular: normal peripheral pulses, regular rhythm Respiratory/Chest: chest wall non-tender, lungs clear Abdomen: normal bowel sounds, non tender, soft, no organomegaly Extremities: normal range of motion, non-tender, normal inspection, no calf tenderness, no swelling Neurologic: homoeopath II-XII grossly normal, no motor/sensory deficits Intake and Output 02/20/19 02/21/19 18:59 06:59 Intake Total 1547.61 ml 1029.92 ml Output Total 600 ml 1000 ml Balance 947.61 ml 29.92 ml Intake Oral 750 ml 770 ml IV Total 797.61 ml 259.92 ml Output Urine Total 600 ml 1000 ml # Bowel Movements 1 Trevon Villafuerte MD Feb 21, 2019 08:30
[2019-02-21] MEDS: Xarelto 10mg tab ORAL SCH (09:05)
--- NOTE | 2019-02-21 09:15 | NUR ---
NURSE NOTES: PATIENT STILL ASLEEP. CONTINUES TO BE ON NSR. NO SIGNS OF DISTRESS OF THE MOMENT. WILL CONTINUE TO MONITOR.
--- NOTE | 2019-02-21 09:52 | Pulmonology Progress Note ---
Assessment/Plan Assessment/Plan IMPRESSION: 1. Anemia. 2. Hyperthyroidism. 3. Atrial flutter vs A fib; recurrent 4. Medication noncompliance. 5. Abdominal pain DISCUSSION: Discussed with the patient. Continue Xarelto. Cardizem on board S/p ALBINA and failed cardioversion GI eval noted On amiodarone Subjective Interval Events: Failed cardioversion; now in ICU on amiodarone; seen by EP Constitutional: Reports: no symptoms HEENT: Repors: no symptoms Respiratory: Reports: no symptoms Cardiovascular: Reports: no symptoms Gastrointestinal/Abdominal: Reports: no symptoms Genitourinary: Reports: no symptoms Allergies: Coded Allergies: No Known Allergies (Verified Allergy, Mild, 04/27/10) Objective Last 24 Hour Vital Signs Date Time Temp Pulse Resp B/P (MAP) Pulse Ox O2 Delivery O2 Flow Rate FiO2 02/21/19 09:00 72 22 101/57 (72) 100 02/21/19 08:00 77 02/21/19 08:00 Nasal Cannula 2.0 02/21/19 08:00 98.4 73 23 94/82 (86) 100 02/21/19 07:30 74 23 94/71 (79) 100 02/21/19 07:00 74 22 94/62 (73) 100 02/21/19 06:07 83 93/72 02/21/19 06:00 86 23 93/72 (79) 100 02/21/19 05:30 77 27 104/58 (73) 100 02/21/19 05:00 78 22 98/49 (65) 100 02/21/19 04:30 77 24 105/64 (78) 100 02/21/19 04:00 77 02/21/19 04:00 Nasal Cannula 2.0 02/21/19 04:00 98.6 77 22 106/72 (83) 100 02/21/19 03:30 79 22 110/68 (82) 100 02/21/19 03:00 80 26 97/51 (66) 100 02/21/19 02:30 82 27 115/53 (73) 100 02/21/19 02:00 83 30 105/54 (71) 100 02/21/19 01:30 83 23 111/67 (82) 100 02/21/19 01:00 82 23 106/53 (70) 100 02/21/19 00:30 82 27 97/56 (70) 100 02/21/19 00:00 98.7 84 27 109/66 (80) 99 02/21/19 00:00 83 02/21/19 00:00 Nasal Cannula 2.0 02/20/19 23:30 84 22 120/28 (58) 02/20/19 23:00 111 23 121/76 (91) 02/20/19 22:30 112 25 104/83 (90) 98 02/20/19 22:00 106 16 94/64 (74) 100 02/20/19 21:30 109 24 98/62 (74) 100 02/20/19 21:00 107 23 110/78 (89) 100 02/20/19 20:30 108 23 98/60 (73) 100 02/20/19 20:00 121 02/20/19 20:00 111 23 115/64 (81) 100 02/20/19 20:00 Nasal Cannula 2.0 02/20/19 19:30 98.3 111 19 107/71 (83) 100 02/20/19 19:07 126 120/82 02/20/19 19:00 123 22 120/82 (95) 100 02/20/19 18:00 118 26 119/76 (90) 100 02/20/19 17:00 119 25 115/69 (84) 100 02/20/19 16:30 127 23 102/67 (79) 100 02/20/19 16:00 109 02/20/19 16:00 97.5 125 22 115/82 (93) 97 02/20/19 16:00 Nasal Cannula 2.0 02/20/19 15:30 118 21 104/57 (73) 100 02/20/19 15:00 126 33 110/73 (85) 100 02/20/19 14:30 124 22 104/58 (73) 100 02/20/19 14:00 123 22 112/64 (80) 100 02/20/19 13:49 125 02/20/19 13:30 124 27 98/57 (71) 100 02/20/19 13:00 139 18 98/79 (85) 100 02/20/19 12:30 133 20 102/78 (86) 100 02/20/19 12:00 Nasal Cannula 2.0 02/20/19 12:00 97.3 132 18 109/70 (83) 100 02/20/19 12:00 132 02/20/19 11:12 98.3 137 20 128/85 100 Nasal Cannula 3 02/20/19 11:02 142 15 121/66 100 Nasal Cannula 3 02/20/19 10:52 151 21 136/59 100 Nasal Cannula 3 02/20/19 10:47 149 21 126/60 100 Nasal Cannula 3 02/20/19 10:47 146 20 99 02/20/19 10:42 98.1 152 15 154/88 100 Nasal Cannula 3 Intake and Output 02/20/19 02/21/19 18:59 06:59 Intake Total 1547.61 ml 1029.92 ml Output Total 600 ml 1000 ml Balance 947.61 ml 29.92 ml Intake Oral 750 ml 770 ml IV Total 797.61 ml 259.92 ml Output Urine Total 600 ml 1000 ml # Bowel Movements 1 General Appearance: no acute distress HEENT: normocephalic Respiratory/Chest: chest wall non-tender, lungs clear Cardiovascular: normal peripheral pulses, normal rate Abdomen: normal bowel sounds, soft, non tender Current Medications Medications (Trade) Dose Ordered Sig/Jae Route PRN Reason Start Time Stop Time Status Last Admin Dose Admin Acetaminophen (Tylenol) 650 mg Q6H PRN ORAL Mild Pain/Temp > 100.5 02/20/19 12:00 03/21/19 11:59 Famotidine (Pepcid) 20 mg BID ORAL 02/20/19 18:00 03/20/19 08:59 02/21/19 09:05 Iron Sucrose 100 mg/Sodium Chloride 60 ml @ 240 mls/hr BEDTIME IV 02/20/19 12:00 03/22/19 11:59 02/20/19 21:27 Ondansetron HCl (Zofran ODT) 4 mg Q6H PRN ORAL Nausea & Vomiting 02/20/19 12:00 03/21/19 11:59 Propranolol HCl (Inderal) 40 mg Q8HR ORAL 02/20/19 20:00 03/22/19 19:59 02/21/19 06:07 Propylthiouracil (Ptu) 300 mg Q8HR ORAL 02/20/19 20:00 03/22/19 19:59 02/21/19 06:07 Rivaroxaban (Xarelto) 20 mg DAILY ORAL 02/20/19 11:30 03/20/19 11:29 02/21/19 09:05 Zolpidem Tartrate (Ambien) 5 mg HSPRN PRN ORAL Insomnia 02/20/19 21:00 02/26/19 20:52 02/20/19 23:39 Chano Cabral MD Feb 21, 2019 09:52
--- NOTE | 2019-02-21 10:38 | NUR ---
NURSE NOTES: SEEN AND EXAMINED BY DR HERNANDEZ. ABLE TO USE BEDSIDE COMMODE. FAMILY MEMBER SEEN AT THE BEDSIDE. WILL CONTINUE TO MONITOR.
--- NOTE | 2019-02-21 12:30 | NUR ---
NURSE NOTES: PATIENT SEEN EATING HER MEAL. STILL CONTINUES TO BE ON NSR. DENIES ANY PAIN OF THE MOMENT. WILL CONTINUE TO MONITOR.
--- NOTE | 2019-02-21 14:19 | Cardiac Electrophysiology PN ---
Assessment/Plan Assessment/Plan 1. Atrial fibrillation with rapid ventricular response. The patient underwent transesophageal echocardiogram that showed no evidence of cardiac thrombi. The patient had 3 attempts at cardioversion that were unsuccessful in keeping the patient in sinus rhythm. Converted to SR on IV amiodarone On Xarelto 20 mg daily. Lopressor was changed to Inderal [address] Garrett Change Amiodarone to Sotalol 80 bid to prevent worsening of the thyrotoxicosis Need ECG 1 hr after each Sotalol Dose for 48 hrs to watch the QT interval 2. 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 On Inderal for thyrotoxicosis. Add Lisinopril and Aldactone. Likely will need Life Vest and cardiac cath 3. Anemia. 4. Hyperthyroidism, on Tapazole. DW Dr Garrett and RN Subjective Subjective Converted to SR at 11 pm last night on amiodarone.No CP or SOB. in ICU Objective Last 24 Hour Vital Signs Date Time Temp Pulse Resp B/P (MAP) Pulse Ox O2 Delivery O2 Flow Rate FiO2 02/21/19 14:00 85 23 107/72 (84) 100 02/21/19 13:00 84 24 116/62 (80) 100 02/21/19 12:00 Nasal Cannula 2.0 02/21/19 12:00 82 02/21/19 11:00 81 23 102/85 (91) 100 02/21/19 10:00 84 22 117/51 (73) 100 02/21/19 09:00 72 22 101/57 (72) 100 02/21/19 08:00 77 02/21/19 08:00 Nasal Cannula 2.0 02/21/19 08:00 98.4 73 23 94/82 (86) 100 02/21/19 07:30 74 23 94/71 (79) 100 02/21/19 07:00 74 22 94/62 (73) 100 02/21/19 06:07 83 93/72 02/21/19 06:00 86 23 93/72 (79) 100 02/21/19 05:30 77 27 104/58 (73) 100 02/21/19 05:00 78 22 98/49 (65) 100 02/21/19 04:30 77 24 105/64 (78) 100 02/21/19 04:00 77 02/21/19 04:00 Nasal Cannula 2.0 02/21/19 04:00 98.6 77 22 106/72 (83) 100 02/21/19 03:30 79 22 110/68 (82) 100 02/21/19 03:00 80 26 97/51 (66) 100 02/21/19 02:30 82 27 115/53 (73) 100 02/21/19 02:00 83 30 105/54 (71) 100 02/21/19 01:30 83 23 111/67 (82) 100 02/21/19 01:00 82 23 106/53 (70) 100 02/21/19 00:30 82 27 97/56 (70) 100 02/21/19 00:00 98.7 84 27 109/66 (80) 99 02/21/19 00:00 83 02/21/19 00:00 Nasal Cannula 2.0 02/20/19 23:30 84 22 120/28 (58) 02/20/19 23:00 111 23 121/76 (91) 02/20/19 22:30 112 25 104/83 (90) 98 02/20/19 22:00 106 16 94/64 (74) 100 02/20/19 21:30 109 24 98/62 (74) 100 02/20/19 21:00 107 23 110/78 (89) 100 02/20/19 20:30 108 23 98/60 (73) 100 02/20/19 20:00 121 02/20/19 20:00 111 23 115/64 (81) 100 02/20/19 20:00 Nasal Cannula 2.0 02/20/19 19:30 98.3 111 19 107/71 (83) 100 02/20/19 19:07 126 120/82 02/20/19 19:00 123 22 120/82 (95) 100 02/20/19 18:00 118 26 119/76 (90) 100 02/20/19 17:00 119 25 115/69 (84) 100 02/20/19 16:30 127 23 102/67 (79) 100 02/20/19 16:00 109 02/20/19 16:00 97.5 125 22 115/82 (93) 97 02/20/19 16:00 Nasal Cannula 2.0 02/20/19 15:30 118 21 104/57 (73) 100 02/20/19 15:00 126 33 110/73 (85) 100 02/20/19 14:30 124 22 104/58 (73) 100 Intake and Output 02/20/19 02/21/19 19:00 07:00 Intake Total 1564.27 ml 1029.92 ml Output Total 600 ml 1000 ml Balance 964.27 ml 29.92 ml Intake Oral 750 ml 770 ml IV Total 814.27 ml 259.92 ml Output Urine Total 600 ml 1000 ml # Bowel Movements 1 Objective HEAD AND NECK: No JVD. LUNGS: Clear. CARDIOVASCULAR: Irregularly irregular S1 and S2 with no gallop or murmur. ABDOMEN: Soft. EXTREMITIES: No pitting edema. Bakari Tidwell MD Feb 21, 2019 14:19
--- NOTE | 2019-02-21 14:30 | NUR ---
NURSE NOTES: CONTINUED TO BE ON SINUS RHYTHM. DENIES ANY PAIN OF THE MOMENT. WILL CONTINUE TO MONITOR.
--- NOTE | 2019-02-21 15:35 | NUR ---
NURSE NOTES: Received bedside report from Alisa RAMIREZ. Pt. a/o x 4. Pleasant and cooperative. No sign of distress. Denies pain at present. IV site at right AC #22g. in placed SL. Sinus rhythm on third shift lieutenant. Family at bedside for support. Call light within reach. Will cont. to monitor.
--- NOTE | 2019-02-21 15:55 | NUR ---
TRANSFER TO FLOOR: Patient transferred to [facility] per paul. Report given to Estefani Palumbo RN. Belongings with patient. Family member seen at the bedside.
--- NOTE | 2019-02-21 17:15 | General Progress Note ---
Assessment/Plan Status: stable Assessment/Plan: Assessment - Chronic microcytic anemia - Iron deficiency - transient N/V, and diarrhea, suspect gastroenteritis - hyperthyroidism - h/o atrial fibrillation - CM / reduced EF Recommendations - IV Iron - check Hg Electrophoresis - check stool OB - outpatient EGD / colonoscopy Subjective Allergies: Coded Allergies: No Known Allergies (Verified Allergy, Mild, 04/27/10) Subjective Feels better tolerating PO Iron panel noted transferred out of ICU today Objective Last 24 Hour Vital Signs Date Time Temp Pulse Resp B/P (MAP) Pulse Ox O2 Delivery O2 Flow Rate FiO2 02/21/19 16:00 Nasal Cannula 2.0 02/21/19 16:00 97.9 84 20 112/52 (72) 100 02/21/19 15:40 87 02/21/19 14:58 85 107/72 02/21/19 14:00 85 23 107/72 (84) 100 02/21/19 13:00 84 24 116/62 (80) 100 02/21/19 12:00 Nasal Cannula 2.0 02/21/19 12:00 82 02/21/19 11:00 81 23 102/85 (91) 100 02/21/19 10:00 84 22 117/51 (73) 100 02/21/19 09:00 72 22 101/57 (72) 100 02/21/19 08:00 77 02/21/19 08:00 Nasal Cannula 2.0 02/21/19 08:00 98.4 73 23 94/82 (86) 100 02/21/19 07:30 74 23 94/71 (79) 100 02/21/19 07:00 74 22 94/62 (73) 100 02/21/19 06:07 83 93/72 02/21/19 06:00 86 23 93/72 (79) 100 02/21/19 05:30 77 27 104/58 (73) 100 02/21/19 05:00 78 22 98/49 (65) 100 02/21/19 04:30 77 24 105/64 (78) 100 02/21/19 04:00 77 02/21/19 04:00 Nasal Cannula 2.0 02/21/19 04:00 98.6 77 22 106/72 (83) 100 02/21/19 03:30 79 22 110/68 (82) 100 02/21/19 03:00 80 26 97/51 (66) 100 02/21/19 02:30 82 27 115/53 (73) 100 02/21/19 02:00 83 30 105/54 (71) 100 02/21/19 01:30 83 23 111/67 (82) 100 02/21/19 01:00 82 23 106/53 (70) 100 02/21/19 00:30 82 27 97/56 (70) 100 02/21/19 00:00 98.7 84 27 109/66 (80) 99 02/21/19 00:00 83 02/21/19 00:00 Nasal Cannula 2.0 02/20/19 23:30 84 22 120/28 (58) 02/20/19 23:00 111 23 121/76 (91) 02/20/19 22:30 112 25 104/83 (90) 98 02/20/19 22:00 106 16 94/64 (74) 100 02/20/19 21:30 109 24 98/62 (74) 100 02/20/19 21:00 107 23 110/78 (89) 100 02/20/19 20:30 108 23 98/60 (73) 100 02/20/19 20:00 121 02/20/19 20:00 111 23 115/64 (81) 100 02/20/19 20:00 Nasal Cannula 2.0 02/20/19 19:30 98.3 111 19 107/71 (83) 100 02/20/19 19:07 126 120/82 02/20/19 19:00 123 22 120/82 (95) 100 02/20/19 18:00 118 26 119/76 (90) 100 Intake and Output 02/20/19 02/21/19 19:00 07:00 Intake Total 1564.27 ml 1029.92 ml Output Total 600 ml 1000 ml Balance 964.27 ml 29.92 ml Intake Oral 750 ml 770 ml IV Total 814.27 ml 259.92 ml Output Urine Total 600 ml 1000 ml # Bowel Movements 1 Height (Feet): 5 Height (Inches): 4.00 Weight (Pounds): 138 Objective WDWN NCAT supple CTA RRR abd soft NT ND no edema Juan Chilel MD Feb 21, 2019 17:15
--- NOTE | 2019-02-21 17:34 | NUR ---
CASE MANAGEMENT: REVIEW 02/21/2019 SI:HYPERTHYROIDISM. TACHYCARDIA. T 97.9 HR 84 RR 20 B/P 112/52 SATS 100% ON 2L/NC NO LABS TODAY IS: CARDIZEM PO Q8H METOPROLOL PO BID PEPCID PO BID XARELTO PO QD TAPAZOLE PO TID SDU STATUS DCP: PATIENT TO BE DISCHARGED ONCE MEDICALLY ONCE MEDICALLY CLEARED. PLAN OF CARE: Converted to SR on IV amiodarone On Xarelto 20 mg daily POSSIBLE LIFE VEST AND CARDIAC CATH
--- NOTE | 2019-02-21 19:23 | NUR ---
HAND-OFF: Report given to Jefe Chapman RN. Pt. remain stable.
--- NOTE | 2019-02-21 19:24 | NUR ---
NURSE NOTES: Patient received from Flow RN. Patient show no signs of acute distress. Patient is on room air, talkative, alert, and currently sinus rhythm. Visiter at bedside, Bed at its lowest position, call light in reach, and X2 bed rails up. Will continue to monitor.
[2019-02-21] MEDS: Sotalol 80mg tab ORAL SCH (20:46)
[2019-02-21] MEDS ORDERED: Iron Sucrose 100 MG in NS 55 ML IV SCH (21:00)
[2019-02-21] MEDS ORDERED: Sotalol 80mg tab ORAL SCH (21:00)
[2019-02-21] MEDS ORDERED: Zolpidem 5mg tab ORAL PRN (21:00)
[2019-02-21] MEDS ORDERED: D5NS 1000ml IV ONE (21:08)
--- NOTE | 2019-02-21 23:38 | NUR ---
NURSE NOTES: Left a message with Dr. Tidwell at [phone] Tidwell called back at [phone] to not report QT less than 500. Patient shows no signs of distress and is resting comfortably.
[2019-02-22] VITALS: BP 104/59
[2019-02-22 04:00] VITALS: BP 110/66
[2019-02-22] MEDS: Propylthiouracil 50mg tab ORAL SCH (06:20)
[2019-02-22] MEDS: Propranolol 40mg tab ORAL SCH (06:21)
--- NOTE | 2019-02-22 06:49 | General Progress Note ---
Assessment/Plan Problem List: (1) Graves' disease with thyrotoxic crisis ICD Codes: E05.01 - Thyrotoxicosis with diffuse goiter with thyrotoxic crisis or storm SNOMED: 52216959 (2) A-fib ICD Codes: I48.91 - Unspecified atrial fibrillation SNOMED: 50475386 Status: stable Assessment/Plan: - conitnue PTU 300 mg q 8 hours - continue Inderal 40 mg q 8 hours - discussed with Dr Tidwell - she is a candidate for GARZA ablation as OP Subjective Allergies: Coded Allergies: No Known Allergies (Verified Allergy, Mild, 04/27/10) All Systems: reviewed and negative except above Subjective events noted interval notes reviewed transferred out of ICU Objective Last 24 Hour Vital Signs Date Time Temp Pulse Resp B/P (MAP) Pulse Ox O2 Delivery O2 Flow Rate FiO2 02/22/19 06:21 120 154/71 02/22/19 04:00 Room Air 02/22/19 04:00 98.1 131 18 110/66 (81) 99 02/22/19 03:50 118 02/22/19 00:00 98.6 108 19 104/59 (74) 99 02/22/19 00:00 Room Air 02/21/19 23:26 118 02/21/19 21:14 100 125/77 02/21/19 20:46 100 125/77 02/21/19 20:45 100 Nasal Cannula 2.0 28 02/21/19 20:00 98.0 100 20 125/77 (93) 100 02/21/19 20:00 Nasal Cannula 2.0 02/21/19 19:12 117 02/21/19 16:00 Nasal Cannula 2.0 02/21/19 16:00 97.9 84 20 112/52 (72) 100 02/21/19 15:40 87 02/21/19 14:58 85 107/72 02/21/19 14:00 85 23 107/72 (84) 100 02/21/19 13:00 84 24 116/62 (80) 100 02/21/19 12:00 Nasal Cannula 2.0 02/21/19 12:00 82 02/21/19 11:00 81 23 102/85 (91) 100 02/21/19 10:00 84 22 117/51 (73) 100 02/21/19 09:00 72 22 101/57 (72) 100 02/21/19 08:00 77 02/21/19 08:00 Nasal Cannula 2.0 02/21/19 08:00 98.4 73 23 94/82 (86) 100 02/21/19 07:30 74 23 94/71 (79) 100 02/21/19 07:00 74 22 94/62 (73) 100 Intake and Output 02/21/19 02/22/19 19:00 07:00 Intake Total 274.99 ml 104 ml Output Total 300 ml Balance -25.01 ml 104 ml Intake Oral 250 ml IV Total 24.99 ml 104 ml Output Urine Total 300 ml # Voids 1 # Bowel Movements 1 Laboratory Tests 02/21/19 18:48: Stool Occult Blood [Pending] Height (Feet): 5 Height (Inches): 4.00 Weight (Pounds): 138 General Appearance: no apparent distress Neck: normal alignment Cardiovascular: tachycardia Respiratory/Chest: lungs clear Abdomen: normal bowel sounds Objective Current Medications Medications (Trade) Dose Ordered Sig/Jae Route PRN Reason Start Time Stop Time Status Last Admin Dose Admin Acetaminophen (Tylenol) 650 mg Q6H PRN ORAL Mild Pain/Temp > 100.5 02/21/19 16:09 03/21/19 16:08 Famotidine (Pepcid) 20 mg BID ORAL 02/21/19 18:00 03/20/19 08:59 02/21/19 18:18 Iron Sucrose 100 mg/Sodium Chloride 60 ml @ 240 mls/hr BEDTIME IV 02/21/19 21:00 03/22/19 11:59 02/21/19 20:47 Lisinopril (Zestril) 10 mg DAILY ORAL 02/22/19 09:00 03/24/19 08:59 Ondansetron HCl (Zofran ODT) 4 mg Q6H PRN ORAL Nausea & Vomiting 02/21/19 16:09 03/21/19 16:08 Propranolol HCl (Inderal) 40 mg Q8HR ORAL 02/21/19 22:00 03/22/19 19:59 02/22/19 06:21 Propylthiouracil (Ptu) 300 mg Q8HR ORAL 02/21/19 22:00 03/22/19 19:59 02/22/19 06:20 Rivaroxaban (Xarelto) 20 mg DAILY ORAL 02/22/19 09:00 03/20/19 11:29 Sotalol HCl (Betapace) 80 mg EVERY 12 HOURS ORAL 02/21/19 21:00 03/23/19 20:59 02/21/19 20:46 Spironolactone (Aldactone) 25 mg DAILY ORAL 02/22/19 09:00 03/24/19 08:59 Zolpidem Tartrate (Ambien) 5 mg HSPRN PRN ORAL Insomnia 02/21/19 21:00 02/26/19 20:52 02/21/19 21:49 Ian Garrett MD Feb 22, 2019 06:48
--- NOTE | 2019-02-22 07:20 | NUR ---
HAND-OFF: Report given to Kerry Tomlinson RN.
--- NOTE | 2019-02-22 07:25 | NUR ---
NURSE NOTES: Report received from Jefe Lockwood RN.Pt in bed asleep but eyes open spontaneously with verbal command ,no resp distress noted ,on RA,pt on Afib on the monitor,IV site to LFA intact ,skin warm and dry c/o tenderness to RFA, ,SR up x2 HOB elevated,bed lock in lowest position,family member at bedside,will continue with plans of care.
[2019-02-22 08:00] VITALS: BP 136/73
--- NOTE | 2019-02-22 08:25 | Pulmonology Progress Note ---
Assessment/Plan Assessment/Plan IMPRESSION: 1. Anemia. 2. Hyperthyroidism. 3. Atrial flutter vs A fib; recurrent 4. Medication noncompliance. 5. Abdominal pain DISCUSSION: Discussed with the patient. Continue Xarelto. Cardizem on board S/p ALBINA and failed cardioversion GI eval noted On amiodarone For GARZA per endocrine loss prevention specialist following Subjective Interval Events: None new; now in SDU Constitutional: Reports: no symptoms HEENT: Repors: no symptoms Respiratory: Reports: no symptoms Cardiovascular: Reports: no symptoms Gastrointestinal/Abdominal: Reports: no symptoms Genitourinary: Reports: no symptoms Allergies: Coded Allergies: No Known Allergies (Verified Allergy, Mild, 04/27/10) Objective Last 24 Hour Vital Signs Date Time Temp Pulse Resp B/P (MAP) Pulse Ox O2 Delivery O2 Flow Rate FiO2 02/22/19 06:21 120 154/71 02/22/19 04:00 Room Air 02/22/19 04:00 98.1 131 18 110/66 (81) 99 02/22/19 03:50 118 02/22/19 00:00 98.6 108 19 104/59 (74) 99 02/22/19 00:00 Room Air 02/21/19 23:26 118 02/21/19 21:14 100 125/77 02/21/19 20:46 100 125/77 02/21/19 20:45 100 Nasal Cannula 2.0 28 02/21/19 20:00 98.0 100 20 125/77 (93) 100 02/21/19 20:00 Nasal Cannula 2.0 02/21/19 19:12 117 02/21/19 16:00 Nasal Cannula 2.0 02/21/19 16:00 97.9 84 20 112/52 (72) 100 02/21/19 15:40 87 02/21/19 14:58 85 107/72 02/21/19 14:00 85 23 107/72 (84) 100 02/21/19 13:00 84 24 116/62 (80) 100 02/21/19 12:00 Nasal Cannula 2.0 02/21/19 12:00 82 02/21/19 11:00 81 23 102/85 (91) 100 02/21/19 10:00 84 22 117/51 (73) 100 02/21/19 09:00 72 22 101/57 (72) 100 Intake and Output 02/21/19 02/22/19 18:59 06:59 Intake Total 291.65 ml 104 ml Output Total 300 ml Balance -8.35 ml 104 ml Intake Oral 250 ml IV Total 41.65 ml 104 ml Output Urine Total 300 ml # Voids 1 # Bowel Movements 1 General Appearance: no acute distress HEENT: normocephalic Respiratory/Chest: chest wall non-tender, lungs clear Cardiovascular: normal peripheral pulses, regularly irregular Laboratory Tests 02/21/19 18:48: Stool Occult Blood [Pending] Current Medications Medications (Trade) Dose Ordered Sig/Jae Route PRN Reason Start Time Stop Time Status Last Admin Dose Admin Acetaminophen (Tylenol) 650 mg Q6H PRN ORAL Mild Pain/Temp > 100.5 02/21/19 16:09 03/21/19 16:08 Famotidine (Pepcid) 20 mg BID ORAL 02/21/19 18:00 03/20/19 08:59 02/21/19 18:18 Iron Sucrose 100 mg/Sodium Chloride 60 ml @ 240 mls/hr BEDTIME IV 02/21/19 21:00 03/22/19 11:59 02/21/19 20:47 Lisinopril (Zestril) 10 mg DAILY ORAL 02/22/19 09:00 03/24/19 08:59 Ondansetron HCl (Zofran ODT) 4 mg Q6H PRN ORAL Nausea & Vomiting 02/21/19 16:09 03/21/19 16:08 Propranolol HCl (Inderal) 40 mg Q8HR ORAL 02/21/19 22:00 03/22/19 19:59 02/22/19 06:21 Propylthiouracil (Ptu) 300 mg Q8HR ORAL 02/21/19 22:00 03/22/19 19:59 02/22/19 06:20 Rivaroxaban (Xarelto) 20 mg DAILY ORAL 02/22/19 09:00 03/20/19 11:29 Sotalol HCl (Betapace) 80 mg EVERY 12 HOURS ORAL 02/21/19 21:00 03/23/19 20:59 02/21/19 20:46 Spironolactone (Aldactone) 25 mg DAILY ORAL 02/22/19 09:00 03/24/19 08:59 Zolpidem Tartrate (Ambien) 5 mg HSPRN PRN ORAL Insomnia 02/21/19 21:00 02/26/19 20:52 02/21/19 21:49 Chano Cabral MD Feb 22, 2019 08:25
--- NOTE | 2019-02-22 08:34 | Cardiology Progress Note ---
Assessment/Plan Status: stable Assessment/Plan Assessment/Plan Status: stable Assessment/Plan: Assessment 1. Anemia. 2. Hyperthyroidism. 3. Atrial flutter. 4. Medication noncompliance. Plan Continue inderal Continue xarelto for 4 weeks Repeat TTE in 4 weeks to evaluate LVEF Continue sotalol, monitor QTc Continue PTU, outpatient GARZA Aldactone, lisinopril for CHF, no signs of fluid overload Life vest Outpatient cardiac cath/stress test Dispo planning OK to d/c with close follow up Subjective Cardiovascular: Reports: no symptoms Respiratory: Reports: no symptoms Gastrointestinal/Abdominal: Reports: no symptoms Genitourinary: Reports: no symptoms Subjective Remains in NSR QTC unchanged on sotalol, tolerating medications Objective Last 24 Hour Vital Signs Date Time Temp Pulse Resp B/P (MAP) Pulse Ox O2 Delivery O2 Flow Rate FiO2 02/22/19 06:21 120 154/71 02/22/19 04:00 Room Air 02/22/19 04:00 98.1 131 18 110/66 (81) 99 02/22/19 03:50 118 02/22/19 00:00 98.6 108 19 104/59 (74) 99 02/22/19 00:00 Room Air 02/21/19 23:26 118 02/21/19 21:14 100 125/77 02/21/19 20:46 100 125/77 02/21/19 20:45 100 Nasal Cannula 2.0 28 02/21/19 20:00 98.0 100 20 125/77 (93) 100 02/21/19 20:00 Nasal Cannula 2.0 02/21/19 19:12 117 02/21/19 16:00 Nasal Cannula 2.0 02/21/19 16:00 97.9 84 20 112/52 (72) 100 02/21/19 15:40 87 02/21/19 14:58 85 107/72 02/21/19 14:00 85 23 107/72 (84) 100 02/21/19 13:00 84 24 116/62 (80) 100 02/21/19 12:00 Nasal Cannula 2.0 02/21/19 12:00 82 02/21/19 11:00 81 23 102/85 (91) 100 02/21/19 10:00 84 22 117/51 (73) 100 02/21/19 09:00 72 22 101/57 (64) 100 General Appearance: no apparent distress, alert EENT: PERRL/EOMI, normal ENT inspection, TMs normal Neck: non-tender, normal alignment, supple, normal inspection, no JVD Rhythm: NSR, SB Cardiovascular: normal peripheral pulses, regular rhythm Respiratory/Chest: chest wall non-tender, lungs clear, normal breath sounds Abdomen: normal bowel sounds, non tender, soft, no organomegaly Extremities: normal range of motion, non-tender Neurologic: tool liaison II-XII grossly normal, no motor/sensory deficits Intake and Output 02/21/19 02/22/19 18:59 06:59 Intake Total 291.65 ml 104 ml Output Total 300 ml Balance -8.35 ml 104 ml Intake Oral 250 ml IV Total 41.65 ml 104 ml Output Urine Total 300 ml # Voids 1 # Bowel Movements 1 Laboratory Tests Test 02/21/19 18:48 Stool Occult Blood Pending Trevon Villafuerte MD Feb 22, 2019 08:34
[2019-02-22] MEDS: Sotalol 80mg tab ORAL SCH (08:50)
--- NOTE | 2019-02-22 08:50 | NUR ---
NURSE NOTES: Seen by Dr Villafuerte at bedside,discussed re plans of care,and possible discharge.
[2019-02-22] MEDS ORDERED: Lisinopril 10mg tab ORAL SCH ×4 (09:00)
[2019-02-22] MEDS ORDERED: Xarelto 10mg tab ORAL SCH (09:00)
[2019-02-22] MEDS ORDERED: Spironolactone 25mg tab ORAL SCH ×2 (09:00)
--- NOTE | 2019-02-22 09:30 | NUR ---
NURSE NOTES: [phone] female family member came to nurses station that patient not normally responding,immediately went to the room Patient not answering to name,eyes close,head and body leaning to right side,i immediately called rapid response team-good response.help is here,working on patients needs,remain not following commands,now restless,keeps on raising left arm,i notified Dr. Villafuerte and Dr. Tidwell,transferred patient to ICU per bed,with ICU RNs,respiratory therapist,myself and primary nurse Kerry Liu
[2019-02-22 09:32] VITALS: BP 138/58
--- NOTE | 2019-02-22 09:41 | NUR ---
RESPIRATORY NOTE:" PT PLACED ON NRB 100% FIO2 DURING GLOVE BOARDER DUE TO DESATURATION. SPO2 IS NOW WNL.WILL CONTINUE TO MONITOR.
--- NOTE | 2019-02-22 09:55 | NUR ---
HAND-OFF: Report given to Kimberlee Barber COMMERCIAL SUBCONTRACTOR.
--- NOTE | 2019-02-22 10:00 | NUR ---
NURSE NOTES: Received pt from JAMES Payne. 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 GSC=8, aphasic, abnormal flexion of left arm and leg, opens eyes slowly and to touch. Pupils 2mm sluggish but reactive. weakness noted on right side of body and slight right facial drooping. On 2LNC, Spo2 100%, BP 134/98, RR 35, T 98.2, HR 103, A-fib on groundwater monitoring technician. Patient goes in and out of Afib and SR. IV site on left FA 22G but unable to flush. Will insert new IV. Patients family took all belongings home with them before transfer. Notified Dr. Cabral and Dr. Tidwell, Received orders for STAT head CT.
--- NOTE | 2019-02-22 10:04 | General Progress Note ---
Assessment/Plan Status: stable Assessment/Plan: Assessment - AMS, Flaccid RUE, r/o acute CVA or ICB - Chronic microcytic anemia - Iron deficiency - hyperthyroidism - h/o atrial fibrillation - CM / reduced EF - critical Recommendations - Stat head CT - Hold PO meds - Hold anticoagulation until CT negative - will need NGT - IV Iron Subjective Allergies: Coded Allergies: No Known Allergies (Verified Allergy, Mild, 04/27/10) Subjective just transferred to ICU apparently became unresponsive this am rapid response called Response team RN stated patient unresponsive, moved only (L) UE, and had a transient bradycardia to 30's (too brief to affect BP) now in ICU non communicative spontaneously moving (LUE) flaccid RUE Objective Last 24 Hour Vital Signs Date Time Temp Pulse Resp B/P (MAP) Pulse Ox O2 Delivery O2 Flow Rate FiO2 02/22/19 08:51 136/73 02/22/19 08:50 112 136/73 02/22/19 08:00 98.0 112 18 136/73 (94) 98 02/22/19 07:43 101 02/22/19 06:21 120 154/71 02/22/19 04:00 Room Air 02/22/19 04:00 98.1 131 18 110/66 (81) 99 02/22/19 03:50 118 02/22/19 00:00 98.6 108 19 104/59 (74) 99 02/22/19 00:00 Room Air 02/21/19 23:26 118 02/21/19 21:14 100 125/77 02/21/19 20:46 100 125/77 02/21/19 20:45 100 Nasal Cannula 2.0 28 02/21/19 20:00 98.0 100 20 125/77 (93) 100 02/21/19 20:00 Nasal Cannula 2.0 02/21/19 19:12 117 02/21/19 16:00 Nasal Cannula 2.0 02/21/19 16:00 97.9 84 20 112/52 (72) 100 02/21/19 15:40 87 02/21/19 14:58 85 107/72 02/21/19 14:00 85 23 107/72 (84) 100 02/21/19 13:00 84 24 116/62 (80) 100 02/21/19 12:00 Nasal Cannula 2.0 02/21/19 12:00 82 02/21/19 11:00 81 23 102/85 (91) 100 02/21/19 10:00 84 22 117/51 (73) 100 Intake and Output 02/21/19 02/22/19 18:59 06:59 Intake Total 291.65 ml 104 ml Output Total 300 ml Balance -8.35 ml 104 ml Intake Oral 250 ml IV Total 41.65 ml 104 ml Output Urine Total 300 ml # Voids 1 # Bowel Movements 1 Laboratory Tests 02/21/19 18:48: Stool Occult Blood [Pending] Height (Feet): 5 Height (Inches): 4.00 Weight (Pounds): 141 Objective WDWN NCAT supple HEENT pupils equal CTA RRR abd soft NT ND no edema Neuro: Unresponsive, spontaneous LUE movement, flaccid (R)UE Juan Chilel MD Feb 22, 2019 10:04
--- NOTE | 2019-02-22 10:10 | NUR ---
NURSE NOTES: took patient down for STAT CT.
[2019-02-22] MEDS ORDERED: D5 1/2NS 1,000 ML IV SCH ×2 (10:15→11:00)
--- NOTE | 2019-02-22 10:45 | NUR ---
NURSE NOTES: Returned from head CT. Reminded radiologist for results.
--- NOTE | 2019-02-22 11:00 | Diagnostic Imaging Report ---
Indication: Altered mental status Technique: Contiguous 5 mm thick transaxial imaging of the head obtained in a Siemens Sensation [address] scanner. Soft tissue and bone windows generated. Automatic Exposure Control was utilized. Total Dose length Product (DLP): 1340.[address] Dose Index Volume (CTDIvol): 70.38 mGy Comparison: 07/18/2010 Findings: The size and configuration of the cortical sulci, basal cisterns, and ventricles are within normal limits for age. There is no mass effect, midline shift, or edema identified. There is no evidence of acute hemorrhage or abnormal intra-axial or extra-axial fluid collections. The bones and soft tissues are unremarkable. Impression: No mass effect, edema or acute bleed. The CT scanner at [facility] is accredited by the [employer] and the scans are performed using dose optimization techniques as appropriate to a performed exam including Automatic Exposure control.
--- NOTE | 2019-02-22 11:03 | NUR ---
NURSE NOTES: Asked Dr. Samuels for urgent CT head results, results are negative for acute stroke. Notified Dr. Cabral of results, suggested MRI brain but MD said he will contact new neuro consult, Dr. Finney. Neuro checks being done every 15 minutes. Patient still unresponsive, right side facial drooping noted, right leg and arm flaccid. Left side arms and legs 3/5 strength.
--- NOTE | 2019-02-22 11:06 | NUR ---
NURSE NOTES: Dr. Cabral called back and gave orders to transfer patient to [facility] now. Charge nurse, Alisa calling now to coordinate transfer.
--- NOTE | 2019-02-22 11:09 | NUR ---
NURSE NOTES: SPOKE WITH THE TROUBLE LOCATER RE TRANSFER TO [facility]. MELI MANRIQUEZ MADE AWARE.
[2019-02-22] MEDS ORDERED: Isovue-370 150ml vial INJ PRN ×2 (11:15→11:45)
--- NOTE | 2019-02-22 11:29 | NUR ---
DISCHARGE/TRANSFER: NOTE CLINICALS FAXED TO [facility] FOR REVIEW Addendum: 02/22/19 at 1156 by Keyla Regalado CM SARA @ [facility] WANTS THE CTA RESULTS WHEN AVAILABLE. NUMBER TO ICU PROVIDED. Addendum: 02/22/19 at 1416 by Keyla Regalado CM PATIENT WAS TRANSFERRED TO [facility] 911-1 UNDER MD [place] AT BEDSIDE
--- NOTE | 2019-02-22 12:11 | Cardiac Electrophysiology PN ---
Assessment/Plan Assessment/Plan 1. Atrial fibrillation with rapid ventricular response. Transesophageal echocardiogram by Dr. Villafuerte showed no evidence of cardiac thrombi. The patient had 3 attempts at cardioversion by Dr Villafuerte that were unsuccessful in keeping the patient in sinus rhythm. Converted to SR on IV amiodarone On Xarelto 20 mg daily, Inderal 40 tid and Sotalol 80 bid. ECGs today at 9.35 am after Sotalol showed atrial fib with RVR 134 and QTc interval 489 ms ARABELLA Garcia in view of possible acute stroke, will DC Xarelto 2. 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 On Inderal, Lisinopril and Aldactone. Awaiting Life Vest and cardiac cath 3. Acute AMS and Right hemiplegia. Not a candidate for TPA in view of being on Xarelto per Neuro CT angio head and neck done, results pending. FU Neuro Head CT Findings: The size and configuration of the cortical sulci, basal cisterns, and ventricles are within normal limits for age. There is no mass effect, midline shift, or edema identified. There is no evidence of acute hemorrhage or abnormal intra- axial or extra-axial fluid collections. The bones and soft tissues are unremarkable. Impression: No mass effect, edema or acute bleed. 3. Anemia. 4. Hyperthyroidism, on Tapazole. ARABELLA RN, Dr Villafuerte and Dr Garcia Subjective Subjective Had rapid response as became unconscious and not talking at 9.30 am while talking to family.Transferred to ICU. Was in and out of atrial fib Underwent stat Head CT that was negative for any bleed. Will be going for stat CT angio of head and neck. Objective Last 24 Hour Vital Signs Date Time Temp Pulse Resp B/P (MAP) Pulse Ox O2 Delivery O2 Flow Rate FiO2 02/22/19 09:32 128 16 138/58 (84) 96 02/22/19 08:51 136/73 02/22/19 08:50 112 136/73 02/22/19 08:00 Room Air 02/22/19 08:00 98.0 112 18 136/73 (94) 98 02/22/19 07:43 101 02/22/19 06:21 120 154/71 02/22/19 04:00 Room Air 02/22/19 04:00 98.1 131 18 110/66 (81) 99 02/22/19 03:50 118 02/22/19 00:00 98.6 108 19 104/59 (74) 99 02/22/19 00:00 Room Air 02/21/19 23:26 118 02/21/19 21:14 100 125/77 02/21/19 20:46 100 125/77 02/21/19 20:45 100 Nasal Cannula 2.0 28 02/21/19 20:00 98.0 100 20 125/77 (93) 100 02/21/19 20:00 Nasal Cannula 2.0 02/21/19 19:12 117 02/21/19 16:00 Nasal Cannula 2.0 02/21/19 16:00 97.9 84 20 112/52 (72) 100 02/21/19 15:40 87 02/21/19 14:58 85 107/72 02/21/19 14:00 85 23 107/72 (84) 100 02/21/19 13:00 84 24 116/62 (80) 100 02/21/19 12:00 Nasal Cannula 2.0 02/21/19 12:00 82 Intake and Output 02/21/19 02/22/19 18:59 06:59 Intake Total 291.65 ml 104 ml Output Total 300 ml Balance -8.35 ml 104 ml Intake Oral 250 ml IV Total 41.65 ml 104 ml Output Urine Total 300 ml # Voids 1 # Bowel Movements 1 Laboratory Tests Test 02/21/19 18:48 Stool Occult Blood Pending Objective HEAD AND NECK: No JVD. LUNGS: Clear. CARDIOVASCULAR: Irregularly irregular S1 and S2 ABDOMEN: Soft. EXTREMITIES: No pitting edema. Neuro: Unresponsive with Right hemiplegia. Bakari Tidwell MD Feb 22, 2019 12:11
--- NOTE | 2019-02-22 12:30 | NUR ---
NURSE NOTES: Patient came back from CTA head and neck. Spoke to Dr. Tijerina (neuro MD) on phone who is the receiving doctor at [facility] in [place], patient needs to be transferred to [facility] ER STAT for thrombectomy. Report given to ER charge nurse, Leonila at [facility]. [facility] called for immediate orange picker. Updated family members. Family took all patient's belongings.
--- NOTE | 2019-02-22 12:40 | Consultation ---
History of Present Illness General Date patient seen: Feb 22, 2019 Time patient seen: 12:02 Chief Complaint: Chest Pain Referring physician: ryan Reason for Consultation: unresponsive Present Illness HPI Had rapid response as became unconscious and not talking at 9.30 am while talking to family.Transferred to ICU. Was in and out of atrial fib Underwent stat Head CT that was negative for any bleed. Atrial fibrillation with rapid ventricular response. The patient had 3 attempts at cardioversion by Dr Villafuerte that were unsuccessful in keeping the patient in sinus rhythm. Converted to SR on IV amiodarone On Xarelto [address] Findings: The size and configuration of the cortical sulci, basal cisterns, and ventricles are within normal limits for age. There is no mass effect, midline shift, or edema identified. There is no evidence of acute hemorrhage or abnormal intra- axial or extra-axial fluid collections. The bones and soft tissues are unremarkable. Allergies: Coded Allergies: No Known Allergies (Verified Allergy, Mild, 04/27/10) Medication History Scheduled Methimazole (Methimazole), 10 MG ORAL THREE TIMES A DAY Methimazole (Methimazole), 10 MG PO DAILY, (Reported) Metoprolol Succinate* (Metoprolol Succinate*), 50 MG ORAL DAILY, (Reported) Propranolol Hcl* (Inderal*), 20 MG ORAL THREE TIMES A DAY Patient History Healthcare decision maker Resuscitation status Full Code Advanced Directive on File No Physical Exam Physical Exam Narrative Awake, alert Global aphasia, left gaze preference Not following Withdraws antigravity on right leg, minimal withdraw right arm NIHSS of 23 Last 24 Hour Vital Signs Date Time Temp Pulse Resp B/P (MAP) Pulse Ox O2 Delivery O2 Flow Rate FiO2 02/22/19 10:06 100 Nasal Cannula 2.0 28 02/22/19 09:41 100 Non-Rebreather 15.0 100 02/22/19 09:32 128 16 138/58 (84) 96 02/22/19 09:30 Non-Rebreather 02/22/19 08:51 136/73 02/22/19 08:50 112 136/73 02/22/19 08:00 Room Air 02/22/19 08:00 98.0 112 18 136/73 (94) 98 02/22/19 07:43 101 02/22/19 06:21 120 154/71 02/22/19 04:00 Room Air 02/22/19 04:00 98.1 131 18 110/66 (81) 99 02/22/19 03:50 118 02/22/19 00:00 98.6 108 19 104/59 (74) 99 02/22/19 00:00 Room Air 02/21/19 23:26 118 02/21/19 21:14 100 125/77 02/21/19 20:46 100 125/77 02/21/19 20:45 100 Nasal Cannula 2.0 28 02/21/19 20:00 98.0 100 20 125/77 (93) 100 02/21/19 20:00 Nasal Cannula 2.0 02/21/19 19:12 117 02/21/19 16:00 Nasal Cannula 2.0 02/21/19 16:00 97.9 84 20 112/52 (72) 100 02/21/19 15:40 87 02/21/19 14:58 85 107/72 02/21/19 14:00 85 23 107/72 (84) 100 02/21/19 13:00 84 24 116/62 (80) 100 Intake and Output 02/21/19 02/22/19 18:59 06:59 Intake Total 291.65 ml 104 ml Output Total 300 ml Balance -8.35 ml 104 ml Intake Oral 250 ml IV Total 41.65 ml 104 ml Output Urine Total 300 ml # Voids 1 # Bowel Movements 1 Laboratory Tests Test 02/21/19 18:48 Stool Occult Blood Pending Height (Feet): 5 Height (Inches): 4.00 Weight (Pounds): 141 Medications Current Medications Medications (Trade) Dose Ordered Sig/Aje Route PRN Reason Start Time Stop Time Status Last Admin Dose Admin Acetaminophen (Tylenol) 650 mg Q6H PRN ORAL Mild Pain/Temp > 100.5 02/22/19 11:00 03/21/19 10:59 Dextrose/Sodium Chloride 1,000 ml @ 50 mls/hr Q20H IV 02/22/19 11:00 03/24/19 10:14 Famotidine (Pepcid) 20 mg BID ORAL 02/22/19 18:00 03/20/19 08:59 Iopamidol (Isovue-370 150ml) 150 ml NOW PRN INJ Radiology Procedure 02/22/19 11:15 02/24/19 11:11 Iopamidol (Isovue-370 150ml) 150 ml NOW PRN INJ Radiology Procedure 02/22/19 11:45 02/24/19 11:37 Iron Sucrose 100 mg/Sodium Chloride 60 ml @ 240 mls/hr BEDTIME IV 02/22/19 21:00 03/22/19 11:59 Lisinopril (Zestril) 10 mg DAILY ORAL 02/23/19 09:00 03/24/19 08:59 Ondansetron HCl (Zofran ODT) 4 mg Q6H PRN ORAL Nausea & Vomiting 02/22/19 11:00 03/21/19 10:59 Propranolol HCl (Inderal) 40 mg Q8HR ORAL 02/22/19 14:00 03/22/19 19:59 Propylthiouracil (Ptu) 300 mg Q8HR ORAL 02/22/19 14:00 03/22/19 19:59 Rivaroxaban (Xarelto) 20 mg DAILY ORAL 02/23/19 09:00 03/20/19 11:29 Sotalol HCl (Betapace) 80 mg EVERY 12 HOURS ORAL 02/22/19 21:00 03/23/19 20:59 Spironolactone (Aldactone) 25 mg DAILY ORAL 02/23/19 09:00 03/24/19 08:59 Zolpidem Tartrate (Ambien) 5 mg HSPRN PRN ORAL Insomnia 02/22/19 21:00 02/26/19 20:52 Assessment/Plan Problem List: (1) Back pain ICD Codes: M54.9 - Dorsalgia, unspecified SNOMED: 548754328 (2) Back pain ICD Codes: M54.9 - Dorsalgia, unspecified SNOMED: 288323782 (3) Breast abscess ICD Codes: N61 - Inflammatory disorders of breast SNOMED: 55721946 (4) Abscess ICD Codes: L02.91 - Cutaneous abscess, unspecified SNOMED: 789784648 (5) Dental infection ICD Codes: K04.7 - Periapical abscess without sinus SNOMED: 176557210 (6) ACS (acute coronary syndrome) ICD Codes: I24.9 - Acute ischemic heart disease, unspecified SNOMED: 164272999 (7) Chest pain ICD Codes: R07.9 - Chest pain, unspecified SNOMED: 12426248 (8) Fluid overload ICD Codes: E87.70 - Fluid overload, unspecified SNOMED: 12297282 (9) Anemia ICD Codes: D64.9 - Anemia, unspecified SNOMED: 843406919 (10) Hyperthyroidism ICD Codes: E05.90 - Thyrotoxicosis, unspecified without thyrotoxic crisis or storm SNOMED: 28082041 (11) Graves' disease with thyrotoxic crisis ICD Codes: E05.01 - Thyrotoxicosis with diffuse goiter with thyrotoxic crisis or storm SNOMED: 20551032 (12) A-fib ICD Codes: I48.91 - Unspecified atrial fibrillation SNOMED: 71475824 Diagnosis [place] I: Acute Left MCA distribution stroke - taking xarelto not a TPA candidate CT brain no hemorrhage. CTA with poor contrast concern for left MCA Pt elegible for thrombectomy. Dr. Davis coordinating with transfer center for stat transfer. DW with nursing DW with dr davis and cards crit care time 72 min Babatunde Garcia MD Feb 22, 2019 12:40
--- NOTE | 2019-02-22 12:45 | NUR ---
NURSE NOTES: Patient left hospital to be transferred to [facility] via [facility]. Patient's family took all belongings with them. Notified Dr. Mckeon patient is in transit.
--- NOTE | 2019-02-22 12:51 | Consultation ---
Consult Note Consult Note received call from RN at 10 AM regarding rapid response and concern about acute CVA. Stat head CT reviewed, no bleed. Discussed with GI, cardiology and neurology Urgently placed calls to stroke center. Accepted by Dr. Mckeon at [facility]. Will arrange expeditious transfer. Chano Cabral MD Feb 22, 2019 12:51
--- NOTE | 2019-02-22 13:08 | Diagnostic Imaging Report ---
Indication: Focal weakness. Patient unresponsive Technique: Continuous helical transaxial imaging of the head was obtained during rapid intravenous contrast administration. Arterial phase of enhancement obtained. Coronal 2-D reformats were also obtained and maximum intensity projection images in multiple planes. Study obtained in a Siemens sensation [address] Automatic Exposure Control was utilized. Total Dose length Product (DLP): 3652.[address] Dose Index Volume (CTDIvol): 51,70.38 mGy Comparison: None Findings: CTA head and neck: The study is very limited diagnostically. In the neck, the extracranial carotid arteries and vertebral arteries are not opacified. In the head, there is considerable artifact from beam hardening. There is opacification of the major intracranial arteries but enhancement in general appears poor. Patient was also bradycardic which she likely affected enhancement. Difficult to completely exclude stenosis involving some of the vessels but there is opacification of both intracranial internal carotid arteries and bilateral middle cerebral arteries proximally. The M1 segments are seen faintly. The postbifurcation vessels are not seen. Do not know if this is a consequence of the poor bolus or other pathology. The basilar artery is seen. Again this is very limited. The proximal portions of both posterior cerebral arteries are seen. The mid to distal branches are not seen. IMPRESSION: Relatively nondiagnostic CTA head and neck due to artifacts and relatively poor bolus. Patient was also bradycardic and likely affected enhancement of vessels due to cardiac output issue. Marked attenuation of distal branches of the middle anterior and posterior cerebral arteries, which are not well seen or enhanced on this examination.
[2019-02-22] MEDS ORDERED: Propranolol 40mg tab ORAL SCH (14:00)
[2019-02-22] MEDS ORDERED: Propylthiouracil 50mg tab ORAL SCH (14:00)
[2019-02-22] MEDS ORDERED: Iron Sucrose 100 MG in NS 55 ML IV SCH (21:00)
[2019-02-22] MEDS ORDERED: Zolpidem 5mg tab ORAL PRN (21:00)
[2019-02-22] MEDS ORDERED: Sotalol 80mg tab ORAL SCH (21:00)
[2019-02-23] MEDS ORDERED: Spironolactone 25mg tab ORAL SCH (09:00)
[2019-02-23] MEDS ORDERED: Lisinopril 10mg tab ORAL SCH (09:00)
[2019-02-23] MEDS ORDERED: Xarelto 10mg tab ORAL SCH (09:00)
--- NOTE | 2019-02-23 19:56 | Discharge Summary ---
Discharge Summary Discharge Summary _ DATE OF ADMISSION: 02/16/2019 DATE OF DISCHARGE: 02/22/2019 DISCHARGED BY: Dr. Cabral REASON FOR ADMISSION: 43 years old female with past medical history of hypertension, paroxysmal atrial fibrillation, history of Graves' disease presented to the hospital with increased chest discomfort for 1 week. She was found to be in atrial flutter with rapid ventricular response. Laboratory work-up showed evidence of severe hyperthyroidism. Patient with a prior history of hyperthyroidism , was admitted to [facility] in November 2017. At that time she was discharged on appropriate medications, however she changed insurance and ran out of her medication. Patient prior was on methimazole and propranolol. She discontinued her medication about 1 week ago , since she ran out of the medication. Patient reported increased palpitations since last night. She reported increased chest discomfort which she described as a rapid heartbeat. Patient also reported some blurring of her vision. Upon evaluation heart rate was 160. EKG showed atrial flutter with variable block with heart rate in 160s. Patient received IV propranolol , some improvement in heart rate noted. Laboratory work-up revealed no leukocytosis, hemoglobin 8.1, hematocrit 29.1. MCV 60. Platelet count 344. Stable electrolytes and renal parameters. Glucose 124. Stable LFT. Troponin - 0.014. Pro BNP 1251. TSH less than 0.010. . Chest x-ray revealed prominent interstitial markings in the right lung base and minimal fluid in the fissure of the right. Patient received 1 dose of Lasix in emergency department. Patient subsequently admitted to ICU for further management. CONSULTANTS: laborer yard Dr. Villafuerte cardiac electrophysiology Dr. Walton neurologist Dr. Garcia equipment technician Dr. Garrett GI specialist Dr. Pimentel [facility] COURSE: Patient admitted to ICU. Rn Telephone Triage closely followed. Echocardiogram revealed severe global left ventricular hypokinesis with ejection fraction 20 to 25%. No evidence of pericardial effusion. No evidence of left ventricular hypertrophy. Moderate mitral regurgitation. Right ventricular systolic pressure of 48 , consistent with moderate pulmonary hypertension , although RVSP may be underestimated due to low systolic function of right ventricle. Patient started on beta-selina for rate control and anticoagulation with Xarelto. Per laborer yard, systolic dysfunction noted on echocardiogram, likely tachycardia induced cardiomyopathy. Rn Telephone Triage recommended to recheck echocardiogram when patient in sinus rhythm. Cardizem added to beta-selina for better rate control. Anticoagulation continued. Patient could not achieve rate control and subsequently undergone ALBINA cardioversion. Banana Expert seen and evaluated patient and stated that patient had Graves' disease with thyrotoxic crisis. Patient initially was placed on Tapazole and metoprolol, which later changed to PTU and Inderal. ALBINA showed no evidence of cardiac thrombi. The patient had three attempts at cardioversion, which were all unsuccessful in keeping patient in sinus rhythm. Patient converted to sinus rhythm on IV amiodarone. Amiodarone was changed to Sotalol as per discussion between equipment technician and laborer yard to prevent worsening of the thyrotoxicosis. QT interval clsoely monitored. Patient was on Xarelto, Inderal and sotalol. Guideline directed medical treatment for severe cardiomyopathy initiated with beta-selina, MAG inhibitor , and Aldactone. Patient was waiting for LifeVest and transfer to cardiac cath. Banana Expert recommended repeat thyroid function in 3 weeks. Banana Expert also recommended to consider radioactive iodine ablation as outpatient in the next few months. Patient was monitored in ICU. GI specialist closely followed for evidence of anemia. Anemia work-up revealed evidence of iron deficiency anemia with ferritin 6. Stool for occult blood was negative. Patient received one dose of IV V iron. Anemia appears to be chronic and counts were about the same a year ago, when patient was in the hospital. Hemoglobin electrophoresis within normal range. GI specialist recommended consider colonoscopy as outpatient. On patient was noted to be altered with right upper extremity flaccid. Stat CT of the head revealed no mass-effect, edema, or acute bleeding. CTA of the head and neck subsequently was done , and revealed findings concerning fro left MCA distribution stroke. Neurologist seen and evaluated the patient. Per neurologist, patient had acute left MCA distribution stroke. Patient was on Xarelto, which made patient not a TPA candidate. Patient was eligible for thrombectomy. Call was placed to stroke center and patient was accepted in [facility]. Patient subsequently was transferred via [facility] to [facility]/stroke center for further evaluation and management . FINAL DIAGNOSES: Atrial flutter/fibrillation with rapid ventricular response Severe cardiomyopathy with ejection fraction 20%, likely tachycardia induced cardiomyopathy Graves' disease with thyrotoxic crisis Acute altered mental status with right hemiplegia Acute left MCA distribution stroke Iron deficiency anemia Medication noncompliance DISCHARGE MEDICATIONS: List of medications was sent to the accepting facility DISCHARGE INSTRUCTIONS: Patient was transferred to [facility] for further management I have been assigned to dictate discharge summary for this account. I was not involved in the patient's management. . Isatu Jauregui NP Feb 23, 2019 19:56
== END 2019-02-22 12:45 | disposition short-term general hospital (02) | DRG 308 ==
LOC: EMR 18:29 → 2E 19:55 → EDBEDREQ 20:37 → 2E 02-17 11:36 → ICU 02-19 10:25 → 2W 02-19 20:32 → ICU 02-20 11:08 → 2W 02-21 15:55 → ICU 02-22 09:42
PROC: B24BZZ4 Ultrasonography of Heart with Aorta, Transesophageal (ICD-10-PCS; principal; 2019-02-20 09:00)
PROC: 5A2204Z Restoration of Cardiac Rhythm, Single (ICD-10-PCS; principal; 2019-02-20 09:00)
DX: I48.92 Unspecified atrial flutter (principal); E05.01 Thyrotoxicosis with diffuse goiter with thyrotoxic crisis or storm; I63.89 Other cerebral infarction; G81.91 Hemiplegia, unspecified affecting right dominant side; I48.91 Unspecified atrial fibrillation; I42.8 Other cardiomyopathies; Z91.14 Patient's other noncompliance with medication regimen; D50.9 Iron deficiency anemia, unspecified; I25.10 Atherosclerotic heart disease of native coronary artery without angina pectoris; M54.9 Dorsalgia, unspecified; K04.7 Periapical abscess without sinus; Z79.01 Long term (current) use of anticoagulants; I34.0 Nonrheumatic mitral (valve) insufficiency; I27.20 Pulmonary hypertension, unspecified
CPT/HCPCS: 36415; 70450; 70496; 70498; 71045; 80053; 82270; 82550; 82553; 82728; 83020; 83540; 83550; 83880; 84439; 84443; 84484; 85025; 93005; 93306; 93312; 94003; 94150; 96374; 96375; 96376; 99285; J2250; J2405